=== PATIENT | male | born 1935 | race Caucasian/White ===

== ENCOUNTER 2019-01-04 11:05 | Inpatient (IN) | payer OTHER ==
[2019-01-04 14:08] LABS: BASO % 1.2 % (0-2.0); EOS % 0.5 % (0-4.5); HEMATOCRIT 33.4 % (35.4-49); HEMOGLOBIN 11.5 GM/dL (11.7-16.9); LYMPH % 21.7 % (8-40); MCHC 34.3 g/dl (32.0-35.9); MEAN CELL VOLUME 99.1 fl (80-96); MEAN PLT VOLUME 7.2 fl (7.5-11.1); NEUT % 67.6 % (42.8-82.8); PLATELET COUNT 414 K/MM3 (134-434); RBC 3.37 M/mm3 (4.00-5.60); RDW 15.7 % (11.9-15.9); WHITE BLOOD COUNT 5.7 K/mm3 (4.0-10.0)
[2019-01-04 14:28] LABS: INR 1.26 (0.83-1.09); PROTHROMBIN TIME (PATIENT) 14.9 SEC (9.7-13.0)
--- NOTE | 2019-01-04 14:29 | PDOC ---
History of Present Illness <Henna Hankins - Last Filed: 01/04/19 15:37> - History of Present Illness Initial Comments: 01/04/19 14:55 The patient is an 83-year-old male from [facility], with a past medical history of pAF, ND with unknown stent placement, who was sent to the ED by Dr. Edwards for concern for new onset CHF. The patient states that he woke up this morning with shortness of breath and chest tightness. He was noted to be hypotensive at the CT. Patient has gained 17 lbs over the last 3 weeks. He has been sleeping on 3 pillows. Pt has no hx CHF, is not on a diuretic. Pt was admitted to [facility] 5 weeks ago after a fall at home and decline in ADLs after the of his . The patient denies fever, chills, nausea, vomiting, diarrhea, or abdominal pain. Denies chest pain or palpitations. Denies any changes in urination. Allergies: NKA Social History: None reported. Surgical History: None reported. PCP: Dr. Edwards Technology Architect: Dr. Thompson <Trista Grayson - Last Filed: 01/04/19 17:25> - General Chief Complaint: Shortness of Breath Stated Complaint: DIFFICULTY BREATHING Time Seen by Provider: 01/04/19 12:17 Past History <Henna Hankins - Last Filed: 01/04/19 15:37> - Past Medical History COPD: No Dementia: Yes - Suicide/Smoking/Psychosocial Hx Smoking History: Unknown if ever smoked Have you smoked in the past 12 months: No Information on smoking cessation initiated: No Hx Alcohol Use: No Drug/Substance Use Hx: No <Trista Grayson - Last Filed: 01/04/19 17:25> - Past Medical History Allergies/Adverse Reactions: Allergies Allergy/AdvReac Type Severity Reaction Status Date / Time No Known Allergies Allergy Verified 01/04/19 11:30 Home Medications: Ambulatory Orders Acetaminophen 650 mg PO ASDIR 01/04/19 Aspirin 81 mg PO DAILY 01/04/19 Cyanocobalamin (Vitamin B-12) [Vitamin B-12] 1,000 mcg PO DAILY 01/04/19 Magnesium Hydroxide [Milk of Magnesia] 400 mg PO ASDIR 01/04/19 Vitamin D3 50,000 unit PO WEEKLY 01/04/19 Review of Systems - Review of Systems Comments:: 01/04/19 14:57 GENERAL/CONSTITUTIONAL: No fever or chills. No weakness. HEAD, EYES, EARS, NOSE AND THROAT: No change in vision. No ear pain or discharge. No sore throat. GASTROINTESTINAL: No nausea, vomiting, diarrhea or constipation. GENITOURINARY: No dysuria, frequency, or change in urination. CARDIOVASCULAR: (+)Chest tightness, shortness of breath. RESPIRATORY: No cough, wheezing, or hemoptysis. MUSCULOSKELETAL: No joint or muscle swelling or pain. No neck or back pain. SKIN: No rash NEUROLOGIC: No headache, vertigo, loss of consciousness, or change in strength/ sensation. ENDOCRINE: No increased thirst. No abnormal weight change. HEMATOLOGIC/LYMPHATIC: No anemia, easy bleeding, or history of blood clots. ALLERGIC/IMMUNOLOGIC: No hives or skin allergy. <Trista Grayson - Last Filed: 01/04/19 17:25> *Physical Exam - Vital Signs Last Vital Signs Temp Pulse Resp BP Pulse Ox 97.4 F L 115 H 20 103/66 96 01/04/19 11:30 01/04/19 11:30 01/04/19 11:30 01/04/19 11:30 01/04/19 11:30 <Henna Hanknis - Last Filed: 01/04/19 15:37> - Vital Signs Last Vital Signs Temp Pulse Resp BP Pulse Ox 97.4 F L 115 H 20 103/66 96 01/04/19 11:30 01/04/19 11:30 01/04/19 11:30 01/04/19 11:30 01/04/19 11:30 - Physical Exam Comments: 01/04/19 14:57 GENERAL: Awake, alert, and fully oriented, in no acute distress EYES: PERRLA, EOMI, sclera anicteric, conjunctiva clear ENT: Moist mucosa LUNGS: diminshed BS at the bases b/l with rales, no crackles or wheezing HEART: IRregularly irreg, rate 110, normal S1 and S2, no murmurs, rubs or gallops ABDOMEN: Soft, nontender, normoactive bowel sounds. No guarding, no rebound. No masses EXTREMITIES: Normal range of motion, 2+ pitting edema symmetric b/l to the knees . No cords, erythema, or tenderness BACK: No midline spinal tenderness in cervical/thoracic/lumbar region NEUROLOGICAL: Normal speech, cranial nerves intact, equal strength and sensation b/l SKIN: Warm, Dry, normal turgor, no rashes or lesions noted. <Trista Grayson - Last Filed: 01/04/19 17:25> Moderate Sedation - Procedure Monitoring Vital Signs: Procedure Monitoring Vital Signs Temperature 97.4 F L 01/04/19 11:30 Pulse Rate 115 H 01/04/19 11:30 Respiratory Rate 20 01/04/19 11:30 Blood Pressure 103/66 01/04/19 11:30 O2 Sat by Pulse Oximetry (%) 96 01/04/19 11:30 <Henna Hankins - Last Filed: 01/04/19 15:37> - Procedure Monitoring Vital Signs: Procedure Monitoring Vital Signs Temperature 97.4 F L 01/04/19 11:30 Pulse Rate 115 H 01/04/19 11:30 Respiratory Rate 01/04/19 11:30 Blood Pressure 103/66 01/04/19 11:30 O2 Sat by Pulse Oximetry (%) 96 01/04/19 11:30 <NilespeterTrista - Last Filed: 01/04/19 17:25> Heart Score/ECG Review #1 01/04/19 15:20 Twelve-lead EKG was performed and reviewed by me. Atrial fibrillation with rapid ventricular response, rate 137. Normal axis. No ST elevations. T wave inversions in leads V4 to V6. No previous EKGs to compare. <Trista Grayson - Last Filed: 01/04/19 17:25> ED Treatment Course - LABORATORY CBC & Chemistry Diagram: 01/04/19 13:46 01/04/19 13:36 - ADDITIONAL ORDERS Additional order review: Laboratory Results 01/04/19 01/04/19 01/04/19 13:46 13:46 13:36 PT with INR 14.90 H INR 1.26 H PTT (Actin FS) 24.6 L Sodium 139 Potassium 4.7 Chloride 105 Carbon Dioxide 25 Anion Gap 9 BUN 20 H Creatinine 0.8 Creat Clearance w eGFR > 60 Random Glucose 110 H Calcium 8.9 Magnesium 2.2 Total Bilirubin 0.7 AST 18 ALT 14 Alkaline Phosphatase 78 Troponin I 0.02 B-Natriuretic Peptide 59545.9 H Total Protein 6.3 L Albumin 2.9 L TSH 0.70 01/04/19 13:46 RBC 3.37 L MCV 99.1 H MCHC 34.3 RDW 15.7 MPV 7.2 L Neutrophils % 67.6 Lymphocytes % 21.7 Monocytes % 9.0 Eosinophils % 0.5 Basophils % 1.2 <Henna Hankins - Last Filed: 01/04/19 15:37> - LABORATORY CBC & Chemistry Diagram: 01/04/19 13:46 01/04/19 13:36 - ADDITIONAL ORDERS Additional order review: Laboratory Results 01/04/19 13:46 PT with INR 14.90 H INR 1.26 H 01/04/19 13:46 RBC 3.37 L MCV 99.1 H MCHC 34.3 RDW 15.7 MPV 7.2 L Neutrophils % 67.6 Lymphocytes % 21.7 Monocytes % 9.0 Eosinophils % 0.5 Basophils % 1.2 - RADIOLOGY Radiology Studies Ordered: Category Date Time Status CHEST X-RAY PORTABLE* [RAD] Stat Radiology 01/04/19 13:36 Taken <Trista Grayson - Last Filed: 01/04/19 17:25> Medical Decision Making - Medical Decision Making 01/04/19 13:51 Dr. Thompson was paged and notified via phone service. Second page placed at 2: 36. <Henna Hankins - Last Filed: 01/04/19 15:37> - Medical Decision Making 01/04/19 15:21 83yo M hx MMP including pAF presents to the ED with SOB, 3 pillow orthopnea, LE edema, and 17lb weight gain over 3 weeks consistent with new onset CHF. Exam with bibasilar rales, LE edema. Bedside sono with B lines, CXR with pulm vasc congestion. BNP 16K, trop neg. EKG with afib with RVR, no LELAND. BP relatively low , sbp 100s systolic. WIll give low dose diuresis with lasix 20mg IV. Dr. Thompson from cardiology has been alerted by Dr. Edwards for evaluation. Case discussed with Dr. Anders, pt accepted for admission. Case discussed in detail with admitting physician including history, physical exam and ancillary studies. Admitting physician has assumed care for the patient, will follow all pending diagnostics and will complete the evaluation and treatment. <Trista Grayson - Last Filed: 01/04/19 17:25> *DC/Admit/Observation/Transfer <Henna Hankins - Last Filed: 01/04/19 15:37> - Discharge Dispostion Decision to Admit order: Yes - Attestations Physician Attestion: 01/04/19 15:23 I, Dr. Trista Grayson MD, attest that this document has been prepared under my direction and personally reviewed by me in its entirety. I further attest, that it accurately reflects all work, treatment, procedures and medical decision -making performed by me. <Trista Grayson - Last Filed: 01/04/19 17:25> Diagnosis at time of Disposition: New onset of congestive heart failure, Orthopnea, Leg edema - Discharge Dispostion Condition at time of disposition: Stable
[2019-01-04 14:31] LABS: ACTIVATED PTT 24.6 SECONDS (25.2-36.5)
[2019-01-04 14:32] LABS: MAGNESIUM 2.2 mg/dL (1.8-2.4)
[2019-01-04 14:32] LABS: ALBUMIN 2.9 g/dl (3.4-5.0); ALK PHOS 78 U/L (45-117); ANION GAP 9 MMOL/L (8-16); BILIRUBIN,TOTAL 0.7 mg/dL (0.2-1); BLOOD UREA NITROGEN 20 mg/dL (7-18); CALCIUM 8.9 mg/dL (8.5-10.1); CHLORIDE 105 mmol/L (98-107); CO2 25 mmol/L (21-32); CREATININE 0.8 mg/dL (0.55-1.3); GLUCOSE,RANDOM 110 mg/dL (74-106); N-TERMINAL BNP 16382.9 pg/ml (5-450); POTASSIUM 4.7 mmol/L (3.5-5.1); SGOT/AST 18 U/L (15-37); SGPT/ALT 14 U/L (13-61); SODIUM 139 mmol/L (136-145); TOT PROT 6.3 g/dl (6.4-8.2)
--- NOTE | 2019-01-04 15:30 | EKG ---
Test Reason : Blood Pressure : / mmHG Vent. Rate : 137 BPM Atrial Rate : 089 BPM P-R Int : 000 ms QRS Dur : 072 ms QT Int : 326 ms P-R-T Axes : 000 044 061 degrees QTc Int : 492 ms ATRIAL FIBRILLATION WITH RAPID VENTRICULAR RESPONSE LOW VOLTAGE QRS NONSPECIFIC T WAVE ABNORMALITY ABNORMAL ECG NO PREVIOUS ECGS AVAILABLE Confirmed by POPEYE CRYSTAL MD ([id number]) on 01/04/2019 3:30:22 PM Referred By: Confirmed By:POPEYE CRYSTAL MD
[2019-01-04] MEDS ORDERED: FUROSEMIDE 40 MG/4 ML INJECTABLE VIAL IVPUSH ONE (15:39)
[2019-01-04] MEDS ORDERED: FUROSEMIDE 40 MG/4 ML INJECTABLE VIAL ONE (16:00)
--- NOTE | 2019-01-04 16:32 | HP ---
Admitting History and Physical - Admission History of Present Illness: The patient is an 83-year-old male from [facility], with a past medical history of pAF, DE with unknown stent placement, who was sent to the ED by Dr. Edwards for concern for new onset CHF. The patient states that he woke up this morning with shortness of breath and chest tightness. He was noted to be hypotensive at the CT. Patient has gained 17 lbs over the last 3 weeks. He has been sleeping on 3 pillows. Pt has no hx CHF, is not on a diuretic. Pt was admitted to [facility] 5 weeks ago after a fall at home and decline in ADLs after the of his . The patient denies fever, chills, nausea, vomiting, diarrhea, or abdominal pain. Denies chest pain or palpitations. Denies any changes in urination. History Source: Patient, Medical Record Limitations to Obtaining History: Poor Historian - Past Medical History Cardiovascular: Yes: CAD, CHF - Smoking History Smoking history: Unknown if ever smoked Have you smoked in the past 12 months: No - Alcohol/Substance Use Hx Alcohol Use: No Home Medications - Allergies Allergies/Adverse Reactions: Allergies Allergy/AdvReac Type Severity Reaction Status Date / Time No Known Allergies Allergy Verified 01/04/19 11:30 - Home Medications Home Medications: Ambulatory Orders Acetaminophen 650 mg PO ASDIR 01/04/19 Aspirin 81 mg PO DAILY 01/04/19 Cyanocobalamin (Vitamin B-12) [Vitamin B-12] 1,000 mcg PO DAILY 01/04/19 Magnesium Hydroxide [Milk of Magnesia] 400 mg PO ASDIR 01/04/19 Vitamin D3 50,000 unit PO WEEKLY 01/04/19 Acetaminophen [Tylenol .Regular Strength -] 650 mg PO Q6H PRN tablet 01/16/19 Aspirin Coated [Ecotrin -] 81 mg PO DAILY tablet.ec 01/16/19 Digoxin [Lanoxin -] 0.125 mg PO DAILY 30 Days #30 tablet 01/16/19 Folic Acid - 1 mg PO DAILY 30 Days #30 tablet 01/16/19 Furosemide [Lasix -] 40 mg PO DAILY 30 Days #30 tablet 01/16/19 Memantine HCl [Namenda -] 5 mg PO BID 30 Days #120 tab 01/16/19 Metoprolol Succinate [Toprol XL -] 100 mg PO BID 30 Days #60 tab.sr.24h Multivitamins [Multivit ([facility] Formulary)] 1 tab PO DAILY 30 Days #30 tab Review of Systems Findings/Remarks: dementia - Review of Systems Constitutional: reports: No Symptoms Eyes: reports: No Symptoms HENT: reports: No Symptoms Neck: reports: No Symptoms Cardiovascular: reports: No Symptoms Neurological: reports: Confusion, Pre-Existing Deficit Psychiatric: reports: Hallucinations Physical Examination Vital Signs: Vital Signs Temperature 97.4 F L 01/04/19 11:30 Pulse Rate 140 H 01/04/19 16:10 Respiratory Rate 16 01/04/19 16:10 Blood Pressure 116/66 01/04/19 16:10 O2 Sat by Pulse Oximetry (%) 99 01/04/19 16:10 Constitutional: Yes: Anxious, Thin Eyes: Yes: Conjunctiva Clear, EOM Intact HENT: Yes: Atraumatic, Normocephalic Neck: Yes: Supple, Trachea Midline Cardiovascular: Yes: Tachycardia, Pulse Irregular Respiratory: Yes: CTA Bilaterally Gastrointestinal: Yes: Normal Bowel Sounds, Soft ...Rectal Exam: Yes: Deferred Renal/: Yes: WNL Breast(s): Yes: WNL Musculoskeletal: Yes: WNL, Muscle Weakness Extremities: Yes: Erythema. No: Calf Tenderness, Deformity Edema: No Peripheral Pulses WNL: Yes Integumentary: Yes: Erythema (lower extremeties), Laceration (LE) Neurological: Yes: WNL, Alert, Oriented, Pre-Existing Deficit ...Motor Strength: WNL Psychiatric: Yes: Alert, Agitated Labs: CBC, BMP 01/04/19 13:46 01/04/19 13:36 Problem List - Problems (1) New onset of congestive heart failure Code(s): I50.9 - HEART FAILURE, UNSPECIFIED (2) Atrial fibrillation with rapid ventricular response Code(s): I48.91 - UNSPECIFIED ATRIAL FIBRILLATION (3) Dementia Code(s): F03.90 - UNSPECIFIED DEMENTIA WITHOUT BEHAVIORAL DISTURBANCE (4) Unsteady gait Code(s): R26.81 - UNSTEADINESS ON FEET (5) Leg edema Code(s): R60.0 - LOCALIZED EDEMA (6) Orthopnea Code(s): R06.01 - ORTHOPNEA Assessment/Plan 83 y/o male with hx of PAF / CHF / CAD / admitted from [facility] residence with progressive inc of SOB. Found to be in HF, and hypotension. echo 12/2018: sev dec lvef, global hk, nl rv, lae, mild mr, mild tr, rvsp 30-40 #HFrEF per echo above IV lasix but treatment limited by low BP daily weights / labs telemetry Cardiology consult #PAF hx of recurrent falls --- risk of a/c outwieght benefits Low Bp limits medical management -- # CAD unkown hx
[2019-01-04] MEDS ORDERED: ACETAMINOPHEN 325 MG TABLET (FP) PO SCH (16:45)
--- NOTE | 2019-01-04 16:51 | CON.CARD ---
Cardiology Consult (text) - Consultation Consultation Note: cc: sob hpi: 83 m hx pafib, chf, cad (?details), here with sob. Past 2 weeks pt with le edema, montes, orthopnea. No cp palps dizzy loc pnd. Sent from [facility] for chf exacerbation. pmh: per hpi psh: loop recorder fam: nc social: no tob ros: per hpi; no nvd fever abd pain vision changes gib hematuria dysuria meds: Home Medications Medication Instructions Recorded Acetaminophen 650 mg PO ASDIR 01/04/19 Aspirin 81 mg PO DAILY 01/04/19 Cyanocobalamin (Vitamin B-12) 1,000 mcg PO DAILY 01/04/19 [Vitamin B-12] Magnesium Hydroxide [Milk of 400 mg PO ASDIR 01/04/19 Magnesia] Vitamin D3 50,000 unit PO WEEKLY 01/04/19 Vital Signs Period Temp Pulse Resp BP Sys/Campbell Pulse Ox Last 24 Hr 97.4 F 115-140 16-20 103-116/66-66 96-99 nad no jvd irreg, s1s2 no mrg scattered rhonchi, nl eff aaox3 1+ le edema bl, no c/c abd nt nd pos bs no jaundice diaphoresis pos dp pt no carotid bruits Laboratory Last Values WBC 5.7 K/mm3 (4.0-10.0) 01/04/19 13:46 RBC 3.37 M/mm3 (4.00-5.60) L 01/04/19 13:46 Hgb 11.5 GM/dL (11.7-16.9) L 01/04/19 13:46 Hct 33.4 % (35.4-49) L 01/04/19 13:46 MCV 99.1 fl (80-96) H 01/04/19 13:46 MCH 34.0 pg (25.7-33.7) H 01/04/19 13:46 MCHC 34.3 g/dl (32.0-35.9) 01/04/19 13:46 RDW 15.7 % (11.9-15.9) 01/04/19 13:46 Plt Count 414 K/MM3 (134-434) 01/04/19 13:46 MPV 7.2 fl (7.5-11.1) L 01/04/19 13:46 Absolute Neuts (auto) 3.9 K/mm3 (1.5-8.0) 01/04/19 13:46 Neutrophils % 67.6 % (42.8-82.8) 01/04/19 13:46 Lymphocytes % 21.7 % (8-40) 01/04/19 13:46 Monocytes % 9.0 % (3.8-10.2) 01/04/19 13:46 Eosinophils % 0.5 % (0-4.5) 01/04/19 13:46 Basophils % 1.2 % (0-2.0) 01/04/19 13:46 Nucleated RBC % 0 % (0-0) 01/04/19 13:46 PT with INR 14.90 SEC (9.7-13.0) H 01/04/19 13:46 INR 1.26 (0.83-1.09) H 01/04/19 13:46 PTT (Actin FS) 24.6 SECONDS (25.2-36.5) L 01/04/19 13:46 Sodium 139 mmol/L (136-145) 01/04/19 13:36 Potassium 4.7 mmol/L (3.5-5.1) 01/04/19 13:36 Chloride 105 mmol/L (98-107) 01/04/19 13:36 Carbon Dioxide 25 mmol/L (21-32) 01/04/19 13:36 Anion Gap 9 MMOL/L (8-16) 01/04/19 13:36 BUN 20 mg/dL (7-18) H 01/04/19 13:36 Creatinine 0.8 mg/dL (0.55-1.3) 01/04/19 13:36 Creat Clearance w eGFR > 60 (>60) 01/04/19 13:36 Random Glucose 110 mg/dL (74-106) H 01/04/19 13:36 Calcium 8.9 mg/dL (8.5-10.1) 01/04/19 13:36 Magnesium 2.2 mg/dL (1.8-2.4) 01/04/19 13:46 Total Bilirubin 0.7 mg/dL (0.2-1) 01/04/19 13:36 AST 18 U/L (15-37) 01/04/19 13:36 ALT 14 U/L (13-61) 01/04/19 13:36 Alkaline Phosphatase 78 U/L (45-117) 01/04/19 13:36 Troponin I 0.02 ng/ml (0.00-0.05) 01/04/19 13:36 B-Natriuretic Peptide 14660.9 pg/ml (5-450) H 01/04/19 13:36 Total Protein 6.3 g/dl (6.4-8.2) L 01/04/19 13:36 Albumin 2.9 g/dl (3.4-5.0) L 01/04/19 13:36 TSH 0.70 uIU/ml (0.358-3.74) 01/04/19 13:46 Blood Type A POSITIVE 01/04/19 13:46 Antibody Screen Negative 01/04/19 13:46 cxr: mild chf ecg: afib rvr, nonspec tw changes, no st changes a/p: 83 m hx pafib, chf, cad (?details), here with sob. sob, acute chf: -lvef unknown, echo ordered -clinically in chf, will continue with iv lasix, daily wts/bmp -no signs acs cad: -details unknown, no signs acs -check echo -finish karla -cont asa pafib: -pt reports that 10/2018 had 2 falls and syncope and admitted in [place] and had loop recorder placed. he then went to snf and recently wily. He is still unsteady on his feet, thus given his fall hx and continued poor ambulation, risk of ac>benefits at this time, cont asa. -RVR here, possibly 2/2 chf or possibly cause of chf. Will start toprol 25 bid , monitor on tele.
[2019-01-04 18:55] LABS: URINE APPEARANCE CLEAR; URINE BILIRUBIN NEGATIVE (<2.0 mg/dL); URINE COLOR YELLOW; URINE GLUCOSE (UA) NEGATIVE (NEGATIVE); URINE KETONE NEGATIVE (NEGATIVE); URINE LEUK ESTERASE NEGATIVE (NEGATIVE); URINE NITRITE NEGATIVE (NEGATIVE); URINE PROTEIN 1+ (NEGATIVE); URINE UROBILINOGEN NEGATIVE mg/dL (0.2-1.0)
[2019-01-04 18:57] LABS: EPI CELLS RARE /HPF (FEW); URINE MUCUS RARE
[2019-01-04] MEDS ORDERED: metoPROLOL SUCCINATE 25 MG TAB.SR.24H (FP) PO SCH (22:00)
[2019-01-05 08:13] LABS: BASO % 1.1 % (0-2.0); EOS % 0.4 % (0-4.5); HEMATOCRIT 32.4 % (35.4-49); HEMOGLOBIN 10.8 GM/dL (11.7-16.9); LYMPH % 19.2 % (8-40); MCH 33.3 pg (25.7-33.7); MCHC 33.3 g/dl (32.0-35.9); MEAN PLT VOLUME 7.4 fl (7.5-11.1); MONO % 8.4 % (3.8-10.2); NEUT % 70.9 % (42.8-82.8); PLATELET COUNT 423 K/MM3 (134-434); RBC 3.24 M/mm3 (4.00-5.60); RDW 15.7 % (11.9-15.9); WHITE BLOOD COUNT 5.8 K/mm3 (4.0-10.0)
[2019-01-05 08:50] LABS: ANION GAP 10 MMOL/L (8-16); BLOOD UREA NITROGEN 24 mg/dL (7-18); CALCIUM 8.7 mg/dL (8.5-10.1); CHLORIDE 107 mmol/L (98-107); CHOLESTEROL 171 mg/dL (50-200); CO2 24 mmol/L (21-32); GLUCOSE,RANDOM 131 mg/dL (74-106); HDL CHOLESTEROL 39 mg/dL (40-60); MAGNESIUM 2.3 mg/dL (1.8-2.4); POTASSIUM 5.1 mmol/L (3.5-5.1); SODIUM 140 mmol/L (136-145); TRIGLYCERIDES 83 mg/dL (0-150)
[2019-01-05] MEDS ORDERED: PNEUMOC 13-VAL CONJ-DIP CRM/PF 0.5 ML DISP.SYRIN IM ONE (09:00)
[2019-01-05] MEDS: ASPIRIN COATED 81 MG TABLET.EC PO SCH (09:17)
[2019-01-05] MEDS ORDERED: METOPROLOL TARTRATE 5 MG/5 ML VIAL IVPUSH PRN (09:24)
[2019-01-05] MEDS: FUROSEMIDE 40 MG/4 ML INJECTABLE VIAL IVPUSH SCH (10:00)
--- NOTE | 2019-01-05 11:22 | PN ---
Progress Note (short form) - Note Progress Note: s: no cp palps dizzy; sob improving o: Vital Signs Period Temp Pulse Resp BP Sys/Campbell Pulse Ox Last 24 Hr 97.4 F-98.1 F 115-144 16-24 103-116/66-79 95-99 nad no jvd irreg, s1s2 no mrg scattered rhonchi, nl eff aaox3 1+ le edema bl, no c/c abd nt nd pos bs no jaundice diaphoresis Current Medications Generic Name Dose Route Start Last Admin Trade Name Freq PRN Reason Stop Dose Admin Acetaminophen 650 mg 01/04/19 16:45 Tylenol - PO ASDIR MARRY Aspirin 81 mg 01/05/19 10:00 01/05/19 09:17 Ecotrin - PO 81 mg DAILY MARRY Administration Furosemide 40 mg 01/05/19 10:00 Lasix Injection - IVPUSH DAILY MARRY Metoprolol Succinate 50 mg 01/05/19 06:45 01/05/19 06:49 Toprol Xl - PO 50 mg BID MARRY Administration Metoprolol Tartrate 5 mg 01/05/19 09:24 Lopressor Injection - IVPUSH Q4H PRN TACHYCARDIA CBC, BMP 01/05/19 06:30 01/05/19 06:00 cxr: mild chf ecg: afib rvr, nonspec tw changes, no st changes tele: afib, rvr 120s a/p: 83 m hx pafib, chf, cad (?details), here with sob. sob, acute chf: -lvef unknown, echo ordered -clinically in chf, will continue with iv lasix, daily wts/bmp -no signs acs cad: -details unknown, no signs acs -check echo -finish karla -cont asa pafib: -pt reports that 10/2018 had 2 falls and syncope and admitted in [place] and had loop recorder placed. he then went to snf and recently wily. He is still unsteady on his feet, thus given his fall hx and continued poor ambulation, risk of ac>benefits at this time, cont asa. -RVR here, possibly 2/2 chf or possibly cause of chf. Increased toprol today, monitor on tele.
--- NOTE | 2019-01-05 12:00 | PN ---
Progress Note (short form) - Note Progress Note: 83 y/o male found lying in bed. States that he feels better today. Reports SOB improving. Denies pain. Vital Signs Period Temp Pulse Resp BP Sys/Campbell Pulse Ox Last 24 Hr 98.0 F-98.1 F 133-144 16-24 105-116/66-79 95-99 CBC, BMP 01/05/19 06:30 01/05/19 06:00 HEENT- NL Neck- Supple Lungs- Scattered Rhonchi Heart- S1/S2 Abd- Soft, NT Ext-1 + pitting edema Active Medications Acetaminophen (Tylenol -) 650 mg PO ASDIR MARRY Aspirin (Ecotrin -) 81 mg PO DAILY [facility] Last Admin: 01/05/19 09:17 Dose: 81 mg Furosemide (Lasix Injection -) 40 mg IVPUSH DAILY [facility] Metoprolol Succinate (Toprol Xl -) 50 mg PO BID [facility] Last Admin: 01/05/19 06:49 Dose: 50 mg Metoprolol Tartrate (Lopressor Injection -) 5 mg IVPUSH Q4H PRN PRN Reason: TACHYCARDIA #CHF Cont IV Lasix Pedal edema/ SOB improving Cont BB for rate control Cardio appreciated
--- NOTE | 2019-01-05 14:54 | ECHO ---
Name: ALLY BIRMINGHAM Exam:Adult Echocardiogram Study Date: 01/05/2019 09:40 AM Age: 83 yrs Reason For Study: CHF Height: 69 in Weight: 144 lb BSA: 1.8 m2 MMode/2D Measurements & Calculations IVSd: 0.87 cm Ao root diam: 3.2 cm LVIDd: 5.5 cm LA dimension: 4.2 cm LVIDs: 4.5 cm LVPWd: 1.0 cm LVPWs: 0.99 cm EDV(Teich): 147.5 ml ESV(Teich): 90.4 ml LVOT diam: 1.9 cm Doppler Measurements & Calculations MV E max adolph: 69.6 cm/sec Ao V2 max: 73.4 cm/sec MV A max adolph: 63.2 cm/sec Ao max P.2 mmHg MV E/A: 1.1 MV dec time: 0.16 sec ALDA(V,D): 1.6 cm2 LV V1 max P.67 mmHg MR max adolph: 386.4 cm/sec LV V1 max: 40.7 cm/sec MR max P.8 mmHg TR max adolph: 290.7 cm/sec Med Peak E' Adolph: 5.4 cm/sec TR max P.7 mmHg Med E/e': 13.0 RVSP(TR): 44.7 mmHg Lat Peak E' Adolph: 5.9 cm/sec Lat E/e': 11.8 RAP systole: 10.0 mmHg Procedure A complete two-dimensional transthoracic echocardiogram was performed (2D, M-mode, Doppler and color flow Doppler). Left Ventricle The left ventricle is normal in size. Ejection Fraction = 25-30%. Left ventricular systolic function is severely reduced. There is severe global hypokinesis of the left ventricle. Right Ventricle The right ventricle is normal in size and function. Atria The left atrium is mildly dilated. Right atrial size is normal. Mitral Valve There is mild mitral regurgitation. Tricuspid Valve There is mild tricuspid regurgitation. Right ventricular systolic pressure is elevated at 30-40mmHg. Aortic Valve No hemodynamically significant valvular aortic stenosis. No aortic regurgitation is present. Pulmonic Valve There is no pulmonic valvular regurgitation. Great Vessels The aortic root is normal size. Pericardium/Pleura There is no pericardial effusion. Interpretation Summary Left ventricular systolic function is severely reduced. There is severe global hypokinesis of the left ventricle. The left ventricle is normal in size. The right ventricle is normal in size and function. The left atrium is mildly dilated. There is mild mitral regurgitation. There is mild tricuspid regurgitation. Right ventricular systolic pressure is elevated at 30-40mmHg. MD Senthil Rodrigues 01/05/2019 02:54 PM
--- NOTE | 2019-01-05 16:42 | EKG ---
Test Reason : Blood Pressure : / mmHG Vent. Rate : 118 BPM Atrial Rate : 133 BPM P-R Int : 000 ms QRS Dur : 072 ms QT Int : 338 ms P-R-T Axes : 000 -05 -58 degrees QTc Int : 473 ms ATRIAL FIBRILLATION WITH RAPID VENTRICULAR RESPONSE WITH PREMATURE VENTRICULAR OR ABERRANTLY CONDUCTED COMPLEXES LOW VOLTAGE QRS T WAVE ABNORMALITY, CONSIDER ANTERIOR ISCHEMIA ABNORMAL ECG WHEN COMPARED WITH ECG OF 04-JAN-2019 11:39, T WAVE INVERSION NOW EVIDENT IN ANTERIOR LEADS Confirmed by KURT ADAM MD ([id number]) on 01/05/2019 4:42:30 PM Referred By: Confirmed By:KURT ADAM MD
[2019-01-06 06:29] LABS: BASO % 0.5 % (0-2.0); HEMATOCRIT 35.1 % (35.4-49); HEMOGLOBIN 11.3 GM/dL (11.7-16.9); LYMPH % 12.5 % (8-40); MCH 33.1 pg (25.7-33.7); MCHC 32.4 g/dl (32.0-35.9); MEAN CELL VOLUME 102.1 fl (80-96); MEAN PLT VOLUME 7.4 fl (7.5-11.1); MONO % 10.7 % (3.8-10.2); NEUT % 76.3 % (42.8-82.8); PLATELET COUNT 399 K/MM3 (134-434); RBC 3.43 M/mm3 (4.00-5.60); RDW 15.8 % (11.9-15.9); WHITE BLOOD COUNT 6.9 K/mm3 (4.0-10.0)
[2019-01-06 07:53] LABS: ANION GAP 12 MMOL/L (8-16); BLOOD UREA NITROGEN 31 mg/dL (7-18); CALCIUM 9.1 mg/dL (8.5-10.1); CHLORIDE 108 mmol/L (98-107); CO2 20 mmol/L (21-32); CREATININE 1.2 mg/dL (0.55-1.3); GLUCOSE,RANDOM 136 mg/dL (74-106); POTASSIUM 4.8 mmol/L (3.5-5.1); SODIUM 140 mmol/L (136-145)
[2019-01-06] MEDS: FUROSEMIDE 40 MG/4 ML INJECTABLE VIAL IVPUSH SCH (09:28)
[2019-01-06] MEDS: ASPIRIN COATED 81 MG TABLET.EC PO SCH (09:28)
--- NOTE | 2019-01-06 11:03 | PN ---
Progress Note (short form) - Note Progress Note: 83 y/o male found lying in bed. Reports feeling better. O2 in place via nasal cannula. Vital Signs Period Temp Pulse Resp BP Sys/Campbell Pulse Ox Last 24 Hr 97.0 F-97.6 F 120-129 16-18 94-108/60-71 96 CBC, BMP 01/06/19 05:30 01/06/19 06:20 HEENT- Normocephalic Neck- supple Lungs- CTAB Heart- S1/S2 Abd- soft, nt Ext- No LE edema Active Medications Acetaminophen (Tylenol -) 650 mg PO ASDIR MARRY Aspirin (Ecotrin -) 81 mg PO DAILY [facility] Last Admin: 01/06/19 09:28 Dose: 81 mg Furosemide (Lasix Injection -) 40 mg IVPUSH DAILY [facility] Last Admin: 01/06/19 09:28 Dose: 40 mg Metoprolol Succinate (Toprol Xl -) 50 mg PO BID [facility] Last Admin: 01/06/19 09:28 Dose: 50 mg Metoprolol Tartrate (Lopressor Injection -) 5 mg IVPUSH Q4H PRN PRN Reason: TACHYCARDIA #CHF Cont IV Lasix Pedal edema resolved SOB improving Cont BB for rate control Chest xray improving #CAD Cont ASA
[2019-01-06] MEDS ORDERED: ACETAMINOPHEN 325 MG TABLET (FP) PO PRN (11:08)
--- NOTE | 2019-01-06 11:25 | PN ---
Progress Note (short form) - Note Progress Note: s: no cp palps dizzy; sob improving o: Vital Signs Period Temp Pulse Resp BP Sys/Campbell Pulse Ox Last 24 Hr 97.0 F-97.6 F 120-129 16-18 94-108/60-71 96 nad no jvd irreg, s1s2 no mrg scattered rhonchi, nl eff aaox3 trace le edema bl, no c/c abd nt nd pos bs no jaundice diaphoresis Current Medications Generic Name Dose Route Start Last Admin Trade Name Freq PRN Reason Stop Dose Admin Acetaminophen 650 mg 01/06/19 11:08 Tylenol - PO Q6H PRN PAIN LEVEL 1-5 Aspirin 81 mg 01/05/19 10:00 01/06/19 09:28 Ecotrin - PO 81 mg DAILY MARRY Administration Furosemide 40 mg 01/05/19 10:00 01/06/19 09:28 Lasix Injection - IVPUSH 40 mg DAILY MARRY Administration Metoprolol Succinate 50 mg 01/05/19 06:45 01/06/19 09:28 Toprol Xl - PO 50 mg BID MARRY Administration Metoprolol Tartrate 5 mg 01/05/19 09:24 Lopressor Injection - IVPUSH Q4H PRN TACHYCARDIA CBC, BMP 01/06/19 05:30 01/06/19 06:20 cxr: mild chf ecg: afib rvr, nonspec tw changes, no st changes tele: afib, rvr 120s echo 12/2018: sev dec lvef, global hk, nl rv, lae, mild mr, mild tr, rvsp 30-40 a/p: 83 m hx pafib, chf, cad (?details), here with sob. sob, acute systolic chf: -echo here with severely reduced lvef -volume improving, cont iv lasix, daily wts/bmp -no signs acs cad: -details unknown, no signs acs -cont asa pafib: -pt reports that 10/2018 had 2 falls and syncope and admitted in [place] and had loop recorder placed. he then went to sn[facility] and recently [facility]. He is still unsteady on his feet, thus given his fall hx and continued poor ambulation, risk of ac>benefits at this time, cont asa. -RVR here, possibly 2/2 chf or possibly cause of chf. Cont toprol, monitor on tele as chf resolves.
[2019-01-06] MEDS ORDERED: HALOPERIDOL LACTATE 5 MG/ML IM ONE (21:00)
[2019-01-07 07:09] LABS: BASO % 0.3 % (0-2.0); HEMATOCRIT 32.4 % (35.4-49); HEMOGLOBIN 10.9 GM/dL (11.7-16.9); LYMPH % 9.3 % (8-40); MCH 33.5 pg (25.7-33.7); MCHC 33.8 g/dl (32.0-35.9); MEAN CELL VOLUME 99.2 fl (80-96); MEAN PLT VOLUME 7.4 fl (7.5-11.1); MONO % 8.8 % (3.8-10.2); NEUT % 81.6 % (42.8-82.8); PLATELET COUNT 343 K/MM3 (134-434); RBC 3.26 M/mm3 (4.00-5.60); WHITE BLOOD COUNT 7.8 K/mm3 (4.0-10.0)
[2019-01-07 07:20] LABS: ANION GAP 13 MMOL/L (8-16); BLOOD UREA NITROGEN 37 mg/dL (7-18); CALCIUM 9.1 mg/dL (8.5-10.1); CHLORIDE 105 mmol/L (98-107); CO2 22 mmol/L (21-32); CREATININE 1.3 mg/dL (0.55-1.3); GLUCOSE,RANDOM 105 mg/dL (74-106); POTASSIUM 4.5 mmol/L (3.5-5.1); SODIUM 139 mmol/L (136-145)
[2019-01-07] MEDS: FUROSEMIDE 40 MG/4 ML INJECTABLE VIAL IVPUSH SCH (09:16)
[2019-01-07] MEDS: ASPIRIN COATED 81 MG TABLET.EC PO SCH (09:16)
--- NOTE | 2019-01-07 10:06 | PN ---
Progress Note (short form) - Note Progress Note: s: no cp palps dizzy; sob improving o: Vital Signs Period Temp Pulse Resp BP Sys/Campbell Pulse Ox Last 24 Hr 97.3 F-98.1 F 116-128 20-24 92-103/50-71 95 nad no jvd irreg, s1s2 no mrg scattered rhonchi, nl eff aaox3 trace le edema bl, no c/c abd nt nd pos bs no jaundice diaphoresis Current Medications Generic Name Dose Route Start Last Admin Trade Name Freq PRN Reason Stop Dose Admin Acetaminophen 650 mg 01/06/19 11:08 Tylenol - PO Q6H PRN PAIN LEVEL 1-5 Aspirin 81 mg 01/05/19 10:00 01/07/19 09:16 Ecotrin - PO 81 mg DAILY MARRY Administration Digoxin 0.125 mg 01/07/19 10:15 Lanoxin - PO DAILY MARRY Furosemide 40 mg 01/05/19 10:00 01/07/19 09:16 Lasix Injection - IVPUSH 01/07/19 12:00 40 mg DAILY MARRY Administration Furosemide 40 mg 01/07/19 16:00 Lasix Injection - IVPUSH 01/07/19 16:01 ONCE ONE Furosemide 40 mg 01/08/19 06:00 Lasix Injection - IVPUSH BID@0600,1400 MARRY Metoprolol Succinate 50 mg 01/05/19 06:45 01/07/19 09:16 Toprol Xl - PO 50 mg BID MARRY Administration Metoprolol Tartrate 5 mg 01/05/19 09:24 Lopressor Injection - IVPUSH Q4H PRN TACHYCARDIA CBC, BMP 01/07/19 05:30 01/07/19 05:30 cxr: mild chf ecg: afib rvr, nonspec tw changes, no st changes tele: afib, rvr 120s echo 12/2018: sev dec lvef, global hk, nl rv, lae, mild mr, mild tr, rvsp 30-40 a/p: 83 m hx pafib, chf, cad (?details), here with sob. sob, acute systolic chf: -echo here with severely reduced lvef -volume improving, cont iv lasix, daily wts/bmp. Will increase to lasix 40 iv bid from qd. -no silviano-i for now as bp low. cont bb. -no signs acs cad: -details unknown, no signs acs -cont asa pafib: -pt reports that 10/2018 had 2 falls and syncope and admitted in [place] and had loop recorder placed. he then went to snf and recently [facility]. He is still unsteady on his feet, thus given his fall hx and continued poor ambulation, risk of ac>benefits at this time, cont asa. -RVR here, possibly 2/2 chf or possibly cause of chf. Cont toprol. Will also add dig for rate control as bp too low for further bb. monitor on tele.
[2019-01-07] MEDS: DIGOXIN 0.125 MG TABLET (FP) PO SCH (10:56)
[2019-01-07] MEDS ORDERED: FUROSEMIDE 40 MG/4 ML INJECTABLE VIAL IVPUSH ONE (16:00)
--- NOTE | 2019-01-07 16:46 | PN ---
Progress Note (short form) - Note Progress Note: sitting in bed comfortable breathing "still a problem" but better Vital Signs Period Temp Pulse Resp BP Sys/Campbell Pulse Ox Last 24 Hr 97.3 F-98.1 F 120-137 20-24 92-103/50-68 95-100 neck supple heart S1/S2 lungs dull left base and rales at both basses abd soft non tender ext no edema / no calf tenderness multiple scab/ injuries in multiple stages of healing ro both lower extremities CBC, BMP 01/07/19 05:30 01/07/19 05:30 CXR: mild chf EKG: afib rvr, nonspec tw changes, no st changes tele: afib, rvr 120s ECHO: 12/2018: sev dec lvef, global hk, nl rv, lae, mild mr, mild tr, rvsp 30-40 Microbiology 01/04/19 18:40 Urine - Urine Clean Catch Urine Culture - Final Active Medications Acetaminophen (Tylenol -) 650 mg PO Q6H PRN PRN Reason: PAIN LEVEL 1-5 Aspirin (Ecotrin -) 81 mg PO DAILY [facility] Last Admin: 01/07/19 09:16 Dose: 81 mg Digoxin (Lanoxin -) 0.125 mg PO DAILY [facility] Last Admin: 01/07/19 10:56 Dose: 0.125 mg Furosemide (Lasix Injection -) 40 mg IVPUSH BID@0600,1400 [facility] Metoprolol Succinate (Toprol Xl -) 50 mg PO BID [facility] Last Admin: 01/07/19 09:16 Dose: 50 mg Metoprolol Tartrate (Lopressor Injection -) 5 mg IVPUSH Q4H PRN PRN Reason: TACHYCARD Assmt / plan 83 y/o male with hx of PAF / CHF / CAD / admitted from [address] [place] [address] with progressive inc of SOB. Found to be in HF, and hypotension. echo 12/2018: sev dec lvef, global hk, nl rv, lae, mild mr, mild tr, rvsp 30-40 #HFrEF per echo above improving with lasix but treatment limited by low BP daily weights / labs lasix increased to BID -- monitor bp #PAF hx of recurrent falls --- agree with cardio increased risk of A/C outweigh the benefits. continue ASA Low Bp limits medical management --agree with dig for rate control # CAD unkown hx
[2019-01-07] MEDS ORDERED: HALOPERIDOL LACTATE 5 MG/ML IM ONE ×2 (21:00→23:00)
[2019-01-08] MEDS ORDERED: HALOPERIDOL LACTATE 5 MG/ML IM ONE (02:15)
[2019-01-08] MEDS: FUROSEMIDE 40 MG/4 ML INJECTABLE VIAL IVPUSH SCH ×2 (06:26→14:00)
[2019-01-08 07:55] LABS: ANION GAP 11 MMOL/L (8-16); BLOOD UREA NITROGEN 39 mg/dL (7-18); CALCIUM 8.8 mg/dL (8.5-10.1); CHLORIDE 107 mmol/L (98-107); CO2 23 mmol/L (21-32); GLUCOSE,RANDOM 98 mg/dL (74-106); SODIUM 140 mmol/L (136-145)
[2019-01-08] MEDS: ASPIRIN COATED 81 MG TABLET.EC PO SCH (09:39)
[2019-01-08] MEDS: DIGOXIN 0.125 MG TABLET (FP) PO SCH (09:39)
--- NOTE | 2019-01-08 10:56 | PN ---
Progress Note (short form) - Note Progress Note: s: no cp palps dizzy; sob improving o: Vital Signs Period Temp Pulse Resp BP Sys/Campbell Pulse Ox Last 24 Hr 97 F-98 F 116-132 19-22 99-123/62-76 95-99 nad no jvd irreg, s1s2 no mrg scattered rhonchi, nl eff aaox3 trace le edema bl, no c/c abd nt nd pos bs no jaundice diaphoresis Current Medications Generic Name Dose Route Start Last Admin Trade Name Freq PRN Reason Stop Dose Admin Acetaminophen 650 mg 01/06/19 11:08 Tylenol - PO Q6H PRN PAIN LEVEL 1-5 Aspirin 81 mg 01/05/19 10:00 01/08/19 09:39 Ecotrin - PO 81 mg DAILY MARRY Administration Digoxin 0.125 mg 01/07/19 10:15 01/08/19 09:39 Lanoxin - PO 0.125 mg DAILY MARRY Administration Furosemide 40 mg 01/08/19 06:00 01/08/19 06:26 Lasix Injection - IVPUSH 40 mg BID@0600,1400 MARRY Administration Metoprolol Succinate 50 mg 01/05/19 06:45 01/08/19 09:39 Toprol Xl - PO 50 mg BID MARRY Administration Metoprolol Tartrate 5 mg 01/05/19 09:24 Lopressor Injection - IVPUSH Q4H PRN TACHYCARDIA CBC, BMP 01/07/19 05:30 01/08/19 06:00 cxr: mild chf ecg: afib rvr, nonspec tw changes, no st changes tele: afib, rate 110s echo 12/2018: sev dec lvef, global hk, nl rv, lae, mild mr, mild tr, rvsp 30-40 a/p: 83 m hx pafib, chf, cad (?details), here with sob. sob, acute systolic chf: -echo here with severely reduced lvef -volume/symptoms improving, cont iv lasix, daily wts/bmp. -no silviano-i for now as bp low. cont bb. -no signs acs cad: -details unknown, no signs acs -cont asa pafib: -pt reports that 10/2018 had 2 falls and syncope and admitted in [place] and had loop recorder placed. he then went to snf and recently half-way. He is still unsteady on his feet, thus given his fall hx and continued poor ambulation, risk of ac>benefits at this time, cont asa. -RVR here, possibly 2/2 chf or possibly cause of chf. Cont toprol. Also added dig for rate control as bp too low for further bb. monitor on tele.
--- NOTE | 2019-01-08 17:45 | PN ---
Progress Note (short form) - Note Progress Note: sitting in bed comfortable / confused / oriented X2 breathing "still a problem" but better Vital Signs Period Temp Pulse Resp BP Sys/Campbell Pulse Ox Last 24 Hr 97 F-98 F 116-128 19-22 100-123/62-80 95-99 neck supple heart S1/S2 lungs dull left base and rales at both basses / rhonchi abd soft non tender ext trace edema / no calf tenderness multiple scab/ injuries in multiple stages of healing to both lower extremities CBC, BMP 01/07/19 05:30 01/08/19 06:00 CBC, BMP 01/07/19 05:30 01/07/19 05:30 CXR: mild chf EKG: afib rvr, nonspec tw changes, no st changes tele: afib, rvr 120s ECHO: 12/2018: sev dec lvef, global hk, nl rv, lae, mild mr, mild tr, rvsp 30-40 Microbiology 01/04/19 18:40 Urine - Urine Clean Catch Urine Culture - Final Active Medications Acetaminophen (Tylenol -) 650 mg PO Q6H PRN PRN Reason: PAIN LEVEL 1-5 Aspirin (Ecotrin -) 81 mg PO DAILY [facility] Last Admin: 01/07/19 09:16 Dose: 81 mg Digoxin (Lanoxin -) 0.125 mg PO DAILY [facility] Last Admin: 01/07/19 10:56 Dose: 0.125 mg Furosemide (Lasix Injection -) 40 mg IVPUSH BID@0600,1400 [facility] Metoprolol Succinate (Toprol Xl -) 50 mg PO BID [facility] Last Admin: 01/07/19 09:16 Dose: 50 mg Metoprolol Tartrate (Lopressor Injection -) 5 mg IVPUSH Q4H PRN PRN Reason: TACHYCARD Assmt / plan 83 y/o male with hx of PAF / CHF / CAD / admitted from [address] [place] [address] with progressive inc of SOB. Found to be in HF, and hypotension. echo 12/2018: sev dec lvef, global hk, nl rv, lae, mild mr, mild tr, rvsp 30-40 #HFrEF per echo above improving with lasix but treatment limited by low BP daily weights / labs lasix increased to BID -- monitor bp #PAF hx of recurrent falls --- agree with cardio increased risk of A/C outweigh the benefits. continue ASA Low Bp limits medical management --agree with dig for rate control # CAD unkown hx # Dementia periods of agitation / sundowning haldol PRN
[2019-01-08] MEDS: HALOPERIDOL LACTATE 5 MG/ML IM PRN (21:42)
[2019-01-09] MEDS: FUROSEMIDE 40 MG/4 ML INJECTABLE VIAL IVPUSH SCH ×2 (06:02→13:08)
[2019-01-09] MEDS: ASPIRIN COATED 81 MG TABLET.EC PO SCH (09:06)
[2019-01-09] MEDS: MULTIVITAMINS (DAILY MVI) TABLET (FP) PO SCH (09:07)
[2019-01-09] MEDS: DIGOXIN 0.125 MG TABLET (FP) PO SCH (09:07)
[2019-01-09] MEDS: FOLIC ACID 1 MG TABLET (FP) PO SCH (09:07)
[2019-01-09] MEDS: THIAMINE HCL 100 MG TABLET (FP) PO SCH (09:07)
--- NOTE | 2019-01-09 09:24 | PN ---
Progress Note, Physician Chief Complaint: sob History of Present Illness: denies sob currently. denies cp. no leg swelling, palpitations - Current Medication List Current Medications: Active Medications Acetaminophen (Tylenol -) 650 mg PO Q6H PRN PRN Reason: PAIN LEVEL 1-5 Last Admin: 01/09/19 09:10 Dose: 650 mg Aspirin (Ecotrin -) 81 mg PO DAILY [facility] Last Admin: 01/09/19 09:06 Dose: 81 mg Digoxin (Lanoxin -) 0.125 mg PO DAILY [facility] Last Admin: 01/09/19 09:07 Dose: 0.125 mg Folic Acid (Folic Acid -) 1 mg PO DAILY [facility] Last Admin: 01/09/19 09:07 Dose: 1 mg Furosemide (Lasix Injection -) 40 mg IVPUSH BID@0600,1400 [facility] Last Admin: 01/09/19 06:02 Dose: 40 mg Haloperidol (Haldol Injection (Fast Acting) -) 3 mg IM Q4H PRN PRN Reason: AGITATION Last Admin: 01/08/19 21:42 Dose: 3 mg Metoprolol Succinate (Toprol Xl -) 50 mg PO BID [facility] Last Admin: 01/09/19 09:07 Dose: 50 mg Metoprolol Tartrate (Lopressor Injection -) 5 mg IVPUSH Q4H PRN PRN Reason: TACHYCARDIA Multivitamins/Minerals/Vitamin C (Tab-A-Vit -) 1 tab PO DAILY [facility] Last Admin: 01/09/19 09:07 Dose: 1 tab Thiamine HCl (Vitamin B1 -) 100 mg PO DAILY [facility] Last Admin: 01/09/19 09:07 Dose: 100 mg - Objective Vital Signs: Vital Signs Temperature 97.9 F 01/09/19 05:00 Pulse Rate 110 H 01/09/19 09:07 Respiratory Rate 18 01/09/19 05:00 Blood Pressure 106/69 01/09/19 05:00 O2 Sat by Pulse Oximetry (%) 98 01/08/19 21:00 Constitutional: Yes: No Distress, Calm Eyes: No: Sclera Icterus HENT: No: Nasal Congestion Cardiovascular: Yes: Pulse Irregular, S1, S2, Other (PMI non diplaced). No: JVD , Gallop, Murmur Respiratory: Yes: CTA Bilaterally (anteriorly (michelle vest on)). No: Accessory Muscle Use, Rales, Wheezes Gastrointestinal: Yes: Normal Bowel Sounds, Soft. No: Tenderness Musculoskeletal: Yes: Other (No kyphosis) Extremities: No: Cold Edema: No Integumentary: No: Jaundice Neurological: Yes: Alert. No: Oriented (thinks he lives in [place] [facility] [address] [facility] (resident of [facility])) Psychiatric: No: Agitated Labs: CBC, BMP 01/07/19 05:30 01/08/19 06:00 INR, PTT INR 1.26 (0.83-1.09) H 01/04/19 13:46 Assessment/Plan cxr 01/08: no change in "some congestive changes" ecg: afib rvr, nonspec tw changes, no st changes echo 12/2018: sev dec lvef, global hk, nl rv, lae, mild mr, mild tr, rvsp 30-40 tele: AF 110s-120s bpm. [place] x7b, 8b. WCT run 10b (? AF with aberrancy vs VT) a/p: 83 m hx pafib, chf, cad (?details), here with sob. sob, acute systolic chf: -echo here with severely reduced lvef, no priors to compare -BNP 16K (no priors) -receiving iv lasix 40 bid. -01/09: wt coming down slowly (6 lbs since admit). no JVD. bun trending up, creat stable. cxr unchanged (mild changes). continue same lasix today--if appears similarly euvolemic and bun/creat rising tomorrow, would transition to oral lasix. -soft BPs. prioritizing BB for syst chf and afib rate control. deferring ANIKET -d/w'd dr goodwin, who feels his dementia is likely significant with limited quality of life and agitation. d/w'd dr riley who knows pt from [address] [place] [address]--only recently met him, difficult to expound on extent of his dementia and/or reduced life expectancy as a result. the benefits of -if tele stable here (i.e. no prolonged VT), will defer final decision on primary prevention ICD for outpatient assessment and discussion with pt/son based on his functional status/mental status/qual of life and their preferences. d/w'd dr riley the plan as well. VTach: -runs of NSVT on tele, up to 8-10 beats -K > 4, Mag > 2 -cont BB as doing, HF optimization as doing cad: -past history details unknown, no signs acs here -cont asa -outpt cardio f/u pafib: -pt reports that 10/2018 had 2 falls and syncope and admitted in [place] and had loop recorder placed. he then went to snf and recently nursing home. He is still unsteady on his feet, thus given his fall hx and continued poor ambulation, risk of ac>benefits at this time, cont asa. -RVR here, possibly 2/2 chf or possibly cause of chf. Cont toprol. Also added dig for rate control, given soft BPs here -01/09: HR remains rapid. incr metoprolol 50 bid to 75 bid, watch BP trend -would consider stopping digoxin if HR well controlled once pt is diuresed, on max tolerated BB dose. -monitor dig levels (good thus far) dementia, agitation/sundowning here: -as above
[2019-01-09] MEDS ORDERED: metoPROLOL SUCCINATE 25 MG TAB.SR.24H (FP) PO ONE (10:45)
[2019-01-09 11:12] LABS: MAGNESIUM 2.2 mg/dL (1.8-2.4)
[2019-01-10] MEDS: FUROSEMIDE 40 MG/4 ML INJECTABLE VIAL IVPUSH SCH (06:55)
[2019-01-10 09:01] LABS: ANION GAP 9 MMOL/L (8-16); CALCIUM 8.3 mg/dL (8.5-10.1); CHLORIDE 105 mmol/L (98-107); CO2 29 mmol/L (21-32); CREATININE 0.7 mg/dL (0.55-1.3); GLUCOSE,RANDOM 98 mg/dL (74-106); MAGNESIUM 2.2 mg/dL (1.8-2.4); POTASSIUM 3.8 mmol/L (3.5-5.1); SODIUM 143 mmol/L (136-145)
--- NOTE | 2019-01-10 09:59 | PN ---
Progress Note (short form) - Note Progress Note: s: sob improving. no chest pain, palps dizziness, lightheadedness Current Medications Acetaminophen (Tylenol -) 650 mg PO Q6H PRN PRN Reason: PAIN LEVEL 1-5 Last Admin: 01/09/19 09:10 Dose: 650 mg Aspirin (Ecotrin -) 81 mg PO DAILY [facility] Last Admin: 01/09/19 09:06 Dose: 81 mg Digoxin (Lanoxin -) 0.125 mg PO DAILY [facility] Last Admin: 01/09/19 09:07 Dose: 0.125 mg Folic Acid (Folic Acid -) 1 mg PO DAILY [facility] Last Admin: 01/09/19 09:07 Dose: 1 mg Furosemide (Lasix Injection -) 40 mg IVPUSH BID@0600,1400 [facility] Last Admin: 01/10/19 06:55 Dose: 40 mg Haloperidol (Haldol Injection (Fast Acting) -) 3 mg IM Q4H PRN PRN Reason: AGITATION Last Admin: 01/08/19 21:42 Dose: 3 mg Metoprolol Succinate (Toprol Xl -) 75 mg PO BID [facility] Last Admin: 01/09/19 22:51 Dose: 75 mg Metoprolol Tartrate (Lopressor Injection -) 5 mg IVPUSH Q4H PRN PRN Reason: TACHYCARDIA Multivitamins/Minerals/Vitamin C (Tab-A-Vit -) 1 tab PO DAILY [facility] Last Admin: 01/09/19 09:07 Dose: 1 tab Thiamine HCl (Vitamin B1 -) 100 mg PO DAILY [facility] Last Admin: 01/09/19 09:07 Dose: 100 mg - Objective Vital Signs Period Temp Pulse Resp BP Sys/Campbell Pulse Ox Last 24 Hr 97.2 F-97.9 F 102-129 20-20 99-122/63-73 96 Constitutional: Yes: No Distress, Calm Eyes: No: Sclera Icterus HENT: No: Nasal Congestion Cardiovascular: Yes: Pulse Irregular, S1, S2, Other (PMI non diplaced). No: JVD , Gallop, Murmur Respiratory: Yes: CTA Bilaterally (anteriorly (michelle vest on)). No: Accessory Muscle Use, Rales, Wheezes Gastrointestinal: Yes: Normal Bowel Sounds, Soft. No: Tenderness Musculoskeletal: Yes: Other (No kyphosis) Extremities: No: Cold Edema: No Integumentary: No: Jaundice Neurological: Yes: Alert. No: Oriented (thinks he lives in [place] on [address] [place] [address] (resident of [facility])) Psychiatric: No: Agitated Assessment/Plan cxr 01/08: no change in "some congestive changes" ecg: afib rvr, nonspec tw changes, no st changes echo 12/2018: sev dec lvef, global hk, nl rv, lae, mild mr, mild tr, rvsp 30-40 tele: AF 100-110s bpm. [place] x 3b, 4b, bigeminy a/p: 83 m hx pafib, chf, cad (?details), here with sob. sob, acute systolic chf: -echo here with severely reduced lvef, no priors to compare -BNP 16K (no priors) -receiving iv lasix 40 bid. -01/09: wt coming down slowly (6 lbs since admit). no JVD. bun trending up, creat stable. cxr unchanged (mild changes). continue same lasix today--if appears similarly euvolemic and bun/creat rising tomorrow, would transition to oral lasix. -soft BPs. prioritizing BB for syst chf and afib rate control. deferring ANIKET -per Dr. Bolanos: d/w'd dr goodwin, who feels his dementia is likely significant with limited quality of life and agitation. d/w'd dr riley who knows pt from [address] [place] [address]--only recently met him, difficult to expound on extent of his dementia and/or reduced life expectancy as a result -if tele stable here (i.e. no prolonged VT), will defer final decision on primary prevention ICD for outpatient assessment and discussion with pt/son based on his functional status/mental status/qual of life and their preferences. d/w'd dr riley the plan as well. - 01/10 weight stable, BUN/Cr stable. appears euvolemic with shortness of breath improved. transition to PO lasix 40 mg daily VTach: -runs of NSVT on tele, up to 8-10 beats -K > 4, Mag > 2 -cont BB as doing, HF optimization as doing cad: -past history details unknown, no signs acs here -cont asa -outpt cardio f/u pafib: -pt reports that 10/2018 had 2 falls and syncope and admitted in [place] and had loop recorder placed. he then went to snf and recently skilled nursing. He is still unsteady on his feet, thus given his fall hx and continued poor ambulation, risk of ac>benefits at this time, cont asa. -RVR here, possibly 2/2 chf or possibly cause of chf. Cont toprol. Also added dig for rate control, given soft BPs here -01/09: HR remains rapid. incr metoprolol 50 bid to 75 bid, watch BP tr -01/10 HR improved with increased metoprolol, digoxin, continue -would consider stopping digoxin if HR well controlled once pt is diuresed, on max tolerated BB dose. -monitor dig levels (good thus far) dementia, agitation/sundowning here: -as above
[2019-01-10] MEDS: DIGOXIN 0.125 MG TABLET (FP) PO SCH (10:41)
[2019-01-10] MEDS: FOLIC ACID 1 MG TABLET (FP) PO SCH (10:41)
[2019-01-10] MEDS: ASPIRIN COATED 81 MG TABLET.EC PO SCH (10:41)
[2019-01-10] MEDS: MULTIVITAMINS (DAILY MVI) TABLET (FP) PO SCH (10:41)
[2019-01-10] MEDS: THIAMINE HCL 100 MG TABLET (FP) PO SCH (10:41)
[2019-01-10 11:54] LABS: BLOOD UREA NITROGEN 23 mg/dL (7-18)
--- NOTE | 2019-01-10 18:19 | PN ---
Progress Note (short form) - Note Progress Note: sitting in bed comfortable / confused / oriented X2 appreciated cardio input - case discussed with Dr Thompson Vital Signs Period Temp Pulse Resp BP Sys/Campbell Pulse Ox Last 24 Hr 97.2 F-98.0 F 100-129 20-20 101-122/63-75 96-96 neck supple heart S1/S2 lungs dull left base and rales at both basses / rhonchi abd soft non tender ext no edema / no calf tenderness multiple scab/ injuries in multiple stages of healing to both lower extremities CBC, BMP 01/07/19 05:30 01/07/19 05:30 CXR: mild chf EKG: afib rvr, nonspec tw changes, no st changes tele: afib, rvr 120s ECHO: 12/2018: sev dec lvef, global hk, nl rv, lae, mild mr, mild tr, rvsp 30-40 Microbiology 01/04/19 18:40 Urine - Urine Clean Catch Urine Culture - Final Active Medications Acetaminophen (Tylenol -) 650 mg PO Q6H PRN PRN Reason: PAIN LEVEL 1-5 Last Admin: 01/09/19 09:10 Dose: 650 mg Aspirin (Ecotrin -) 81 mg PO DAILY [facility] Last Admin: 01/10/19 10:41 Dose: 81 mg Digoxin (Lanoxin -) 0.125 mg PO DAILY [facility] Last Admin: 01/10/19 10:41 Dose: 0.125 mg Folic Acid (Folic Acid -) 1 mg PO DAILY [facility] Last Admin: 01/10/19 10:41 Dose: 1 mg Furosemide (Lasix -) 40 mg PO DAILY [facility] Haloperidol (Haldol Injection (Fast Acting) -) 3 mg IM Q4H PRN PRN Reason: AGITATION Last Admin: 01/08/19 21:42 Dose: 3 mg Metoprolol Succinate (Toprol Xl -) 75 mg PO BID [facility] Last Admin: 01/10/19 10:41 Dose: 75 mg Metoprolol Tartrate (Lopressor Injection -) 5 mg IVPUSH Q4H PRN PRN Reason: TACHYCARDIA Multivitamins/Minerals/Vitamin C (Tab-A-Vit -) 1 tab PO DAILY [facility] Last Admin: 01/10/19 10:41 Dose: 1 tab Thiamine HCl (Vitamin B1 -) 100 mg PO DAILY [facility] Last Admin: 01/10/19 10:41 Dose: 100 mg Assmt / plan 83 y/o male with hx of PAF / CHF / CAD / admitted from [address] [place] [address] with progressive inc of SOB. Found to be in HF, and hypotension. echo 12/2018: sev dec lvef, global hk, nl rv, lae, mild mr, mild tr, rvsp 30-40 #HFrEF per echo above improving with lasix but treatment limited by low BP daily weights / labs lasix changed to PO to BID -- monitor bp #PAF hx of recurrent falls --- agree with cardio increased risk of A/C outweigh the benefits. continue ASA Low Bp limits medical management --agree with dig for rate control BB increased for rate control # CAD unkown hx # Dementia periods of agitation / sundowning haldol PRN
[2019-01-10] MEDS: HALOPERIDOL LACTATE 5 MG/ML IM PRN (21:30)
[2019-01-11 06:47] LABS: BASO % 0.7 % (0-2.0); EOS % 1.7 % (0-4.5); HEMATOCRIT 36.4 % (35.4-49); LYMPH % 17.1 % (8-40); MCH 32.7 pg (25.7-33.7); MEAN CELL VOLUME 98.9 fl (80-96); MEAN PLT VOLUME 7.4 fl (7.5-11.1); MONO % 9.6 % (3.8-10.2); NEUT % 70.9 % (42.8-82.8); PLATELET COUNT 269 K/MM3 (134-434); RBC 3.68 M/mm3 (4.00-5.60); RDW 16.5 % (11.9-15.9); WHITE BLOOD COUNT 4.9 K/mm3 (4.0-10.0)
[2019-01-11 07:10] LABS: ANION GAP 8 MMOL/L (8-16); BLOOD UREA NITROGEN 20 mg/dL (7-18); CALCIUM 8.4 mg/dL (8.5-10.1); CHLORIDE 103 mmol/L (98-107); CO2 28 mmol/L (21-32); CREATININE 0.7 mg/dL (0.55-1.3); GLUCOSE,RANDOM 103 mg/dL (74-106); MAGNESIUM 2.1 mg/dL (1.8-2.4); POTASSIUM 3.2 mmol/L (3.5-5.1); SODIUM 140 mmol/L (136-145)
--- NOTE | 2019-01-11 10:00 | PN ---
Progress Note (short form) - Note Progress Note: s: no chest pain, palps dizziness, lightheadedness, sob Current Medications Acetaminophen (Tylenol -) 650 mg PO Q6H PRN PRN Reason: PAIN LEVEL 1-5 Last Admin: 01/09/19 09:10 Dose: 650 mg Aspirin (Ecotrin -) 81 mg PO DAILY [facility] Last Admin: 01/10/19 10:41 Dose: 81 mg Digoxin (Lanoxin -) 0.125 mg PO DAILY [facility] Last Admin: 01/10/19 10:41 Dose: 0.125 mg Folic Acid (Folic Acid -) 1 mg PO DAILY [facility] Last Admin: 01/10/19 10:41 Dose: 1 mg Furosemide (Lasix -) 40 mg PO DAILY [facility] Haloperidol (Haldol Injection (Fast Acting) -) 3 mg IM Q4H PRN PRN Reason: AGITATION Last Admin: 01/10/19 21:30 Dose: 3 mg Metoprolol Succinate (Toprol Xl -) 75 mg PO BID [facility] Last Admin: 01/10/19 21:30 Dose: 75 mg Metoprolol Tartrate (Lopressor Injection -) 5 mg IVPUSH Q4H PRN PRN Reason: TACHYCARDIA Multivitamins/Minerals/Vitamin C (Tab-A-Vit -) 1 tab PO DAILY [facility] Last Admin: 01/10/19 10:41 Dose: 1 tab Thiamine HCl (Vitamin B1 -) 100 mg PO DAILY [facility] Last Admin: 01/10/19 10:41 Dose: 100 mg - Objective Vital Signs Period Temp Pulse Resp BP Sys/Campbell Pulse Ox Last 24 Hr 97.4 F-98.0 F 100-125 20-20 110-126/63-81 96-96 Constitutional: Yes: No Distress, Calm Eyes: No: Sclera Icterus HENT: No: Nasal Congestion Cardiovascular: Yes: Pulse Irregular, S1, S2, Other (PMI non diplaced). No: JVD , Gallop, Murmur Respiratory: Yes: CTA Bilaterally (anteriorly (michelle vest on)). No: Accessory Muscle Use, Rales, Wheezes Gastrointestinal: Yes: Normal Bowel Sounds, Soft. No: Tenderness Musculoskeletal: Yes: Other (No kyphosis) Extremities: No: Cold Edema: No Integumentary: No: Jaundice Neurological: Yes: Alert. No: Oriented (thinks he lives in [place] on [address] [place] [address] (resident of [facility]) Psychiatric: No: Agitated Assessment/Plan cxr 01/08: no change in "some congestive changes" ecg: afib rvr, nonspec tw changes, no st changes echo 12/2018: sev dec lvef, global hk, nl rv, lae, mild mr, mild tr, rvsp 30-40 tele: AF 100-110s occ 120s. VT x 8 beats, 10 beats a/p: 83 m hx pafib, chf, cad (?details), here with sob. sob, acute systolic chf: -echo here with severely reduced lvef, no priors to compare -BNP 16K (no priors) -receiving iv lasix 40 bid. -01/09: wt coming down slowly (6 lbs since admit). no JVD. bun trending up, creat stable. cxr unchanged (mild changes). continue same lasix today--if appears similarly euvolemic and bun/creat rising tomorrow, would transition to oral lasix. -soft BPs. prioritizing BB for syst chf and afib rate control. deferring ANIKET -per Dr. Bolanos: d/w'd dr goodwin, who feels his dementia is likely significant with limited quality of life and agitation. d/w'd dr riley who knows pt from [address] [place] [address]--only recently met him, difficult to expound on extent of his dementia and/or reduced life expectancy as a result -if tele stable here (i.e. no prolonged VT), will defer final decision on primary prevention ICD for outpatient assessment and discussion with pt/son based on his functional status/mental status/qual of life and their preferences. d/w'd dr riley the plan as well. - 01/10- weight stable, BUN/Cr stable. appears euvolemic with shortness of breath improved. continue lasix 40 mg PO daily VTach: -runs of NSVT on tele, up to 8-10 beats -K > 4, Mag > 2 -cont BB as doing, HF optimization as doing - uptitration of bb limited by low BP cad: -past history details unknown, no signs acs here -cont asa -outpt cardio f/u pafib: -pt reports that 10/2018 had 2 falls and syncope and admitted in [place] and had loop recorder placed. he then [facility]. He is still unsteady on his feet, thus given his fall hx and continued poor ambulation, risk of ac>benefits at this time, cont asa. -RVR here, possibly 2/2 chf or possibly cause of chf. Cont toprol. Also added dig for rate control, given soft BPs here - HR improved with increased metoprolol, digoxin, limited ability to uptitrate bb due to low BPs -would consider stopping digoxin if HR well controlled once pt is diuresed, on max tolerated BB dose. -monitor dig levels (good thus far) dementia, agitation/sundowning here: - manage per primary
[2019-01-11] MEDS: FUROSEMIDE 40 MG TABLET (FP) PO SCH (10:48)
[2019-01-11] MEDS: THIAMINE HCL 100 MG TABLET (FP) PO SCH (10:48)
[2019-01-11] MEDS: ASPIRIN COATED 81 MG TABLET.EC PO SCH (10:48)
[2019-01-11] MEDS: DIGOXIN 0.125 MG TABLET (FP) PO SCH (10:49)
[2019-01-11] MEDS: MULTIVITAMINS (DAILY MVI) TABLET (FP) PO SCH (10:49)
[2019-01-11] MEDS: FOLIC ACID 1 MG TABLET (FP) PO SCH (10:49)
--- NOTE | 2019-01-11 12:47 | PN ---
Progress Note (short form) - Note Progress Note: sitting in bed comfortable / confused / oriented X2 Vital Signs Period Temp Pulse Resp BP Sys/Campbell Pulse Ox Last 24 Hr 97.4 F-98.0 F 90-125 20-20 93-126/63-81 96-96 neck supple heart S1/S2 lungs dull left base and rales at both basses / rhonchi abd soft non tender ext no edema / no calf tenderness multiple scab/ injuries in multiple stages of healing to both lower extremities CBC, BMP 01/11/19 05:30 01/11/19 05:30 CBC, BMP 01/07/19 05:30 01/07/19 05:30 CXR: mild chf EKG: afib rvr, nonspec tw changes, no st changes tele: afib, rvr 120s ECHO: 12/2018: sev dec lvef, global hk, nl rv, lae, mild mr, mild tr, rvsp 30-40 Microbiology 01/04/19 18:40 Urine - Urine Clean Catch Urine Culture - Final Active Medications Acetaminophen (Tylenol -) 650 mg PO Q6H PRN PRN Reason: PAIN LEVEL 1-5 Last Admin: 01/09/19 09:10 Dose: 650 mg Aspirin (Ecotrin -) 81 mg PO DAILY [facility] Last Admin: 01/11/19 10:48 Dose: 81 mg Digoxin (Lanoxin -) 0.125 mg PO DAILY [facility] Last Admin: 01/11/19 10:49 Dose: 0.125 mg Folic Acid (Folic Acid -) 1 mg PO DAILY [facility] Last Admin: 01/11/19 10:49 Dose: 1 mg Furosemide (Lasix -) 40 mg PO DAILY [facility] Last Admin: 01/11/19 10:48 Dose: 40 mg Haloperidol (Haldol Injection (Fast Acting) -) 3 mg IM Q4H PRN PRN Reason: AGITATION Last Admin: 01/10/19 21:30 Dose: 3 mg Metoprolol Succinate (Toprol Xl -) 75 mg PO BID [facility] Last Admin: 01/11/19 10:48 Dose: 75 mg Metoprolol Tartrate (Lopressor Injection -) 5 mg IVPUSH Q4H PRN PRN Reason: TACHYCARDIA Multivitamins/Minerals/Vitamin C (Tab-A-Vit -) 1 tab PO DAILY [facility] Last Admin: 01/11/19 10:49 Dose: 1 tab Thiamine HCl (Vitamin B1 -) 100 mg PO DAILY [facility] Last Admin: 01/11/19 10:48 Dose: 100 mg Assmt / plan 83 y/o male with hx of PAF / CHF / CAD / admitted from [facility] with [facility] of SOB. Found to be in HF, and hypotension. echo 12/2018: sev dec lvef, global hk, nl rv, lae, mild mr, mild tr, rvsp 30-40 #HFrEF per echo above improving with lasix but treatment limited by low BP daily weights / labs lasix changed to PO to BID -- monitor bp #PAF hx of recurrent falls --- agree with cardio increased risk of A/C outweigh the benefits. episodes of SVT ?? contniue to monitor tele and maximize lytes continue ASA Low Bp limits medical management --agree with dig for rate control BB increased for rate control # CAD unkown hx # Dementia periods of agitation / sundowning haldol PRN
[2019-01-11] MEDS ORDERED: POTASSIUM CHLORIDE TABS 20 MEQ TABLET.ER (FP) PO ONE ×2 (15:45→23:05)
[2019-01-11] MEDS: HALOPERIDOL LACTATE 5 MG/ML IM PRN (23:00)
[2019-01-12 06:46] LABS: EOS % 1.8 % (0-4.5); HEMATOCRIT 35.9 % (35.4-49); HEMOGLOBIN 11.8 GM/dL (11.7-16.9); MCH 32.7 pg (25.7-33.7); MCHC 32.9 g/dl (32.0-35.9); MEAN CELL VOLUME 99.3 fl (80-96); MEAN PLT VOLUME 7.4 fl (7.5-11.1); MONO % 9.6 % (3.8-10.2); NEUT % 69.6 % (42.8-82.8); PLATELET COUNT 239 K/MM3 (134-434); RBC 3.62 M/mm3 (4.00-5.60); RDW 16.7 % (11.9-15.9); WHITE BLOOD COUNT 4.1 K/mm3 (4.0-10.0)
[2019-01-12 07:06] LABS: ANION GAP 6 MMOL/L (8-16); BLOOD UREA NITROGEN 16 mg/dL (7-18); CALCIUM 8.1 mg/dL (8.5-10.1); CHLORIDE 104 mmol/L (98-107); CO2 32 mmol/L (21-32); CREATININE 0.7 mg/dL (0.55-1.3); GLUCOSE,RANDOM 101 mg/dL (74-106); POTASSIUM 3.1 mmol/L (3.5-5.1); SODIUM 142 mmol/L (136-145)
[2019-01-12] MEDS ORDERED: POTASSIUM CHLORIDE TABS 20 MEQ TABLET.ER (FP) PO ONE (09:27)
[2019-01-12] MEDS: ASPIRIN COATED 81 MG TABLET.EC PO SCH (09:31)
[2019-01-12] MEDS: FOLIC ACID 1 MG TABLET (FP) PO SCH (09:31)
[2019-01-12] MEDS: THIAMINE HCL 100 MG TABLET (FP) PO SCH (09:31)
[2019-01-12] MEDS: DIGOXIN 0.125 MG TABLET (FP) PO SCH (09:31)
[2019-01-12] MEDS: FUROSEMIDE 40 MG TABLET (FP) PO SCH (09:31)
[2019-01-12] MEDS: MULTIVITAMINS (DAILY MVI) TABLET (FP) PO SCH (09:32)
--- NOTE | 2019-01-12 10:20 | PN ---
Progress Note (short form) - Note Progress Note: 83 y/o male found lying in bed.Appears comfortable. Vital Signs Period Temp Pulse Resp BP Sys/Campbell Pulse Ox Last 24 Hr 97.5 F-98.0 F 87-127 20-20 93-131/61-84 95 CBC, BMP 01/12/19 05:30 01/12/19 05:30 HEENT- Normocephalic Neck- supple Lungs- CTAB Heart- S1/S2 Abd- Soft, nt Ext- No LE edema Multiple excoriations on B/L LEs Active Medications Acetaminophen (Tylenol -) 650 mg PO Q6H PRN PRN Reason: PAIN LEVEL 1-5 Last Admin: 01/09/19 09:10 Dose: 650 mg Aspirin (Ecotrin -) 81 mg PO DAILY [facility] Last Admin: 01/12/19 09:31 Dose: 81 mg Digoxin (Lanoxin -) 0.125 mg PO DAILY [facility] Last Admin: 01/12/19 09:31 Dose: 0.125 mg Folic Acid (Folic Acid -) 1 mg PO DAILY [facility] Last Admin: 01/12/19 09:31 Dose: 1 mg Furosemide (Lasix -) 40 mg PO DAILY [facility] Last Admin: 01/12/19 09:31 Dose: 40 mg Haloperidol (Haldol Injection (Fast Acting) -) 3 mg IM Q4H PRN PRN Reason: AGITATION Last Admin: 01/11/19 23:00 Dose: 3 mg Metoprolol Succinate (Toprol Xl -) 100 mg PO BID [facility] Last Admin: 01/12/19 09:32 Dose: 100 mg Metoprolol Tartrate (Lopressor Injection -) 5 mg IVPUSH Q4H PRN PRN Reason: TACHYCARDIA Multivitamins/Minerals/Vitamin C (Tab-A-Vit -) 1 tab PO DAILY [facility] Last Admin: 01/12/19 09:32 Dose: 1 tab Thiamine HCl (Vitamin B1 -) 100 mg PO DAILY [facility] Last Admin: 01/12/19 09:31 Dose: 100 mg Assmt / plan #HFrEF improving with lasix daily weights- 5 lb wt loss in 3 days PO lasix monitor bp #Hypokalemia Potassium replaced Trend lytes #PAF hx of recurrent falls --- agree with cardio increased risk of A/C outweigh the benefits. episodes of SVT ?? continue to monitor tele continue ASA BB for rate control # Dementia Behavior stable haldol PRN
--- NOTE | 2019-01-12 12:01 | PN ---
Progress Note (short form) - Note Progress Note: s: no cp palps dizzy sob o: Vital Signs Period Temp Pulse Resp BP Sys/Campbell Pulse Ox Last 24 Hr 97.5 F-98.0 F 87-127 20-20 114-131/61-84 95 nad no jvd irreg, s1s2 no mrg scattered rhonchi, nl eff aaox3 no le edema bl, no c/c abd nt nd pos bs no jaundice diaphoresis Current Medications Generic Name Dose Route Start Last Admin Trade Name Freq PRN Reason Stop Dose Admin Acetaminophen 650 mg 01/06/19 11:08 01/09/19 09:10 Tylenol - PO 650 mg Q6H PRN Administration PAIN LEVEL 1-5 Aspirin 81 mg 01/05/19 10:00 01/12/19 09:31 Ecotrin - PO 81 mg DAILY [facility] Administration Digoxin 0.125 mg 01/07/19 10:15 01/12/19 09:31 Lanoxin - PO 0.125 mg DAILY [facility] Administration Folic Acid 1 mg 01/09/19 10:00 01/12/19 09:31 Folic Acid - PO 1 mg DAILY [facility] Administration Furosemide 40 mg 01/11/19 10:00 01/12/19 09:31 Lasix - PO 40 mg DAILY [facility] Administration Haloperidol 3 mg 01/08/19 18:09 01/11/19 23:00 Haldol Injection (Fast Acting) - IM 3 mg Q4H PRN Administration AGITATION Metoprolol Succinate 100 mg 01/12/19 09:26 01/12/19 09:32 Toprol Xl - PO 100 mg BID [facility] Administration Metoprolol Tartrate 5 mg 01/05/19 09:24 Lopressor Injection - IVPUSH Q4H PRN TACHYCARDIA Multivitamins/Minerals/Vitamin C 1 tab 01/09/19 10:00 01/12/19 09:32 Tab-A-Vit - PO 1 tab DAILY [facility] Administration Thiamine HCl 100 mg 01/09/19 10:00 01/12/19 09:31 Vitamin B1 - PO 100 mg DAILY [facility] Administration CBC, BMP 01/12/19 05:30 01/12/19 05:30 cxr 01/08: no change in "some congestive changes" ecg: afib rvr, nonspec tw changes, no st changes echo 12/2018: sev dec lvef, global hk, nl rv, lae, mild mr, mild tr, rvsp 30-40 tele: afib, rate ok, brief nsvt a/p: 83 m hx pafib, chf, cad (?details), here with sob. sob, acute systolic chf: -echo here with severely reduced lvef, no priors to compare -BNP 16K (no priors) -receiving iv lasix 40 bid. -01/09: wt coming down slowly (6 lbs since admit). no JVD. bun trending up, creat stable. cxr unchanged (mild changes). continue same lasix today--if appears similarly euvolemic and bun/creat rising tomorrow, would transition to oral lasix. -soft BPs. prioritizing BB for syst chf and afib rate control. deferring ANIKET -per Dr. Bolanos: d/w'd dr goodwin, who feels his dementia is likely significant with limited quality of life and agitation. d/w'd dr riley who knows pt from [address] [place] [address]--only recently met him, difficult to expound on extent of his dementia and/or reduced life expectancy as a result -if tele stable here (i.e. no prolonged VT), will defer final decision on primary prevention ICD for outpatient assessment and discussion with pt/son based on his functional status/mental status/qual of life and their preferences. d/w'd dr riley the plan as well. - 01/10-14 weight stable, BUN/Cr stable. appears euvolemic with shortness of breath improved. continue lasix 40 mg PO daily VTach: -runs of NSVT on tele, up to 8-10 beats -K > 4, Mag > 2 -cont BB as doing, HF optimization as doing cad: -past history details unknown, no signs acs here -cont asa -outpt cardio f/u pafib: -pt reports that 10/2018 had 2 falls and syncope and admitted in [place] and had loop recorder placed. he then went to [facility] and recently [place]. He is still unsteady on his feet, thus given his fall hx and continued poor ambulation, risk of ac>benefits at this time, cont asa. -RVR here, possibly 2/2 chf or possibly cause of chf. Cont toprol. Also added dig for rate control, given soft BPs here - HR improved with increased metoprolol, digoxin dementia, agitation/sundowning here: - manage per primary cardiac dixon stable
[2019-01-13 07:40] LABS: BASO % 0.7 % (0-2.0); EOS % 1.8 % (0-4.5); HEMATOCRIT 37.5 % (35.4-49); HEMOGLOBIN 12.4 GM/dL (11.7-16.9); LYMPH % 15.9 % (8-40); MCH 32.7 pg (25.7-33.7); MEAN PLT VOLUME 7.5 fl (7.5-11.1); MONO % 7.7 % (3.8-10.2); NEUT % 73.9 % (42.8-82.8); PLATELET COUNT 227 K/MM3 (134-434); RBC 3.79 M/mm3 (4.00-5.60); RDW 16.8 % (11.9-15.9)
[2019-01-13 08:18] LABS: ANION GAP 7 MMOL/L (8-16); BLOOD UREA NITROGEN 20 mg/dL (7-18); CALCIUM 8.8 mg/dL (8.5-10.1); CHLORIDE 103 mmol/L (98-107); CO2 30 mmol/L (21-32); CREATININE 0.6 mg/dL (0.55-1.3); GLUCOSE,RANDOM 94 mg/dL (74-106); POTASSIUM 3.5 mmol/L (3.5-5.1); SODIUM 141 mmol/L (136-145)
[2019-01-13] MEDS: MULTIVITAMINS (DAILY MVI) TABLET (FP) PO SCH (09:27)
[2019-01-13] MEDS: THIAMINE HCL 100 MG TABLET (FP) PO SCH (09:27)
[2019-01-13] MEDS: DIGOXIN 0.125 MG TABLET (FP) PO SCH (09:27)
[2019-01-13] MEDS: FOLIC ACID 1 MG TABLET (FP) PO SCH (09:27)
[2019-01-13] MEDS: FUROSEMIDE 40 MG TABLET (FP) PO SCH (09:27)
[2019-01-13] MEDS: ASPIRIN COATED 81 MG TABLET.EC PO SCH (09:27)
[2019-01-13] MEDS ORDERED: POTASSIUM CHLORIDE TABS 20 MEQ TABLET.ER (FP) PO ONE (09:49)
--- NOTE | 2019-01-13 10:10 | PN ---
Progress Note (short form) - Note Progress Note: 83 y/o male found sitting in bed. Appears comfortable. Denies SOB. Vital Signs Period Temp Pulse Resp BP Sys/Campbell Pulse Ox Last 24 Hr 97.1 F-98 F 98-107 18-20 98-136/61-89 96 CBC, BMP 01/13/19 05:45 01/13/19 05:45 HEENT- Normocephalic Neck- Supple Lungs- CTAb Heart- S1/S2 Abd- Soft, nt Ext- No LE edema Multiple excoriations B/L LEs Active Medications Acetaminophen (Tylenol -) 650 mg PO Q6H PRN PRN Reason: PAIN LEVEL 1-5 Last Admin: 01/09/19 09:10 Dose: 650 mg Aspirin (Ecotrin -) 81 mg PO DAILY [facility] Last Admin: 01/13/19 09:27 Dose: 81 mg Digoxin (Lanoxin -) 0.125 mg PO DAILY [facility] Last Admin: 01/13/19 09:27 Dose: 0.125 mg Folic Acid (Folic Acid -) 1 mg PO DAILY [facility] Last Admin: 01/13/19 09:27 Dose: 1 mg Furosemide (Lasix -) 40 mg PO DAILY [facility] Last Admin: 01/13/19 09:27 Dose: 40 mg Haloperidol (Haldol Injection (Fast Acting) -) 3 mg IM Q4H PRN PRN Reason: AGITATION Last Admin: 01/11/19 23:00 Dose: 3 mg Metoprolol Succinate (Toprol Xl -) 100 mg PO BID [facility] Last Admin: 01/13/19 09:27 Dose: 100 mg Metoprolol Tartrate (Lopressor Injection -) 5 mg IVPUSH Q4H PRN PRN Reason: TACHYCARDIA Multivitamins/Minerals/Vitamin C (Tab-A-Vit -) 1 tab PO DAILY [facility] Last Admin: 01/13/19 09:27 Dose: 1 tab Potassium Chloride (K-Dur -) 40 meq PO ONCE ONE Stop: 01/13/19 09:50 Thiamine HCl (Vitamin B1 -) 100 mg PO DAILY [facility] Last Admin: 01/13/19 09:27 Dose: 100 mg Assmt / plan #HFrEF improving with lasix daily weights- wt 129 lbs today Cont 40 mg lasix PO monitor bp #Hypokalemia Potassium normal 3.5 Trend lytes #PAF hx of recurrent falls --- agree with cardio increased risk of A/C outweigh the benefits. continue ASA BB for rate control # Dementia Behavior intermittent Pt pulling equipment haldol PRN Plan- Case discussed with Lilia. TAZ Telemetry. Transfer to med-surg. Trial without Sailaja vest. Alicia Billy [employer]
--- NOTE | 2019-01-13 10:40 | PN ---
Progress Note (short form) - Note Progress Note: s: no cp palps dizzy sob o: Vital Signs Period Temp Pulse Resp BP Sys/Campbell Pulse Ox Last 24 Hr 97.1 F-98 F 98-107 18-20 98-136/61-89 96 nad no jvd irreg, s1s2 no mrg cta bl nl eff no le edema bl, no c/c abd nt nd pos bs no jaundice diaphoresis Current Medications Generic Name Dose Route Start Last Admin Trade Name Freq PRN Reason Stop Dose Admin Acetaminophen 650 mg 01/06/19 11:08 01/09/19 09:10 Tylenol - PO 650 mg Q6H PRN Administration PAIN LEVEL 1-5 Aspirin 81 mg 01/05/19 10:00 01/13/19 09:27 Ecotrin - PO 81 mg DAILY [facility] Administration Digoxin 0.125 mg 01/07/19 10:15 01/13/19 09:27 Lanoxin - PO 0.125 mg DAILY [facility] Administration Folic Acid 1 mg 01/09/19 10:00 01/13/19 09:27 Folic Acid - PO 1 mg DAILY [facility] Administration Furosemide 40 mg 01/11/19 10:00 01/13/19 09:27 Lasix - PO 40 mg DAILY [facility] Administration Haloperidol 3 mg 01/08/19 18:09 01/11/19 23:00 Haldol Injection (Fast Acting) - IM 3 mg Q4H PRN Administration AGITATION Metoprolol Succinate 100 mg 01/12/19 09:26 01/13/19 09:27 Toprol Xl - PO 100 mg BID [facility] Administration Metoprolol Tartrate 5 mg 01/05/19 09:24 Lopressor Injection - IVPUSH Q4H PRN TACHYCARDIA Multivitamins/Minerals/Vitamin C 1 tab 01/09/19 10:00 01/13/19 09:27 Tab-A-Vit - PO 1 tab DAILY [facility] Administration Thiamine HCl 100 mg 01/09/19 10:00 01/13/19 09:27 Vitamin B1 - PO 100 mg DAILY [facility] Administration CBC, BMP 01/13/19 05:45 01/13/19 05:45 cxr 01/08: no change in "some congestive changes" ecg: afib rvr, nonspec tw changes, no st changes echo 12/2018: sev dec lvef, global hk, nl rv, lae, mild mr, mild tr, rvsp 30-40 tele: afib, rate ok a/p: 83 m hx pafib, chf, cad (?details), here with sob. sob, acute systolic chf: -echo here with severely reduced lvef, no priors to compare -BNP 16K (no priors) -receiving iv lasix 40 bid. -01/09: wt coming down slowly (6 lbs since admit). no JVD. bun trending up, creat stable. cxr unchanged (mild changes). continue same lasix today--if appears similarly euvolemic and bun/creat rising tomorrow, would transition to oral lasix. -soft BPs. prioritizing BB for syst chf and afib rate control. deferring ANIKET -per Dr. Bolanos: d/w'd dr goodwin, who feels his dementia is likely significant with limited quality of life and agitation. d/w'd dr riley who knows pt from [address] [place] [address]--only recently met him, difficult to expound on extent of his dementia and/or reduced life expectancy as a result -if tele stable here (i.e. no prolonged VT), will defer final decision on primary prevention ICD for outpatient assessment and discussion with pt/son based on his functional status/mental status/qual of life and their preferences. d/w'd dr riley the plan as well. - 01/10-15 BUN/Cr stable. appears euvolemic with shortness of breath improved. continue lasix 40 mg PO daily VTach: -runs of NSVT on tele, up to 8-10 beats -K > 4, Mag > 2 -cont BB as doing, less nsvt with increased bb cad: -past history details unknown, no signs acs here -cont asa -outpt cardio f/u pafib: -pt reports that 10/2018 had 2 falls and syncope and admitted in [place] and had loop recorder placed. he then went to [facility] and recently [facility]. He is still unsteady on his feet, thus given his fall hx and continued poor ambulation, risk of ac>benefits at this time, cont asa. -RVR here, possibly 2/2 chf or possibly cause of chf. Cont toprol. Also added dig for rate control, given soft BPs here - HR improved with increased metoprolol, digoxin dementia, agitation/sundowning here: - manage per primary cardiac dixon stable for dc with outpt f/u
[2019-01-13] MEDS: POTASSIUM CHLORIDE TABS 20 MEQ TABLET.ER (FP) PO SCH (20:48)
[2019-01-13] MEDS: HALOPERIDOL LACTATE 5 MG/ML IM PRN (22:07)
[2019-01-14 07:25] LABS: BASO % 0.9 % (0-2.0); EOS % 2.2 % (0-4.5); HEMATOCRIT 37.8 % (35.4-49); HEMOGLOBIN 12.6 GM/dL (11.7-16.9); LYMPH % 16.7 % (8-40); MCH 32.6 pg (25.7-33.7); MCHC 33.4 g/dl (32.0-35.9); MEAN CELL VOLUME 97.6 fl (80-96); MEAN PLT VOLUME 8.1 fl (7.5-11.1); NEUT % 72.2 % (42.8-82.8); PLATELET COUNT 225 K/MM3 (134-434); RBC 3.87 M/mm3 (4.00-5.60); RDW 16.7 % (11.9-15.9)
[2019-01-14 07:56] LABS: ANION GAP 7 MMOL/L (8-16); BLOOD UREA NITROGEN 20 mg/dL (7-18); CALCIUM 8.7 mg/dL (8.5-10.1); CHLORIDE 102 mmol/L (98-107); CO2 32 mmol/L (21-32); CREATININE 0.7 mg/dL (0.55-1.3); GLUCOSE,RANDOM 86 mg/dL (74-106); POTASSIUM 4.1 mmol/L (3.5-5.1); SODIUM 140 mmol/L (136-145)
--- NOTE | 2019-01-14 09:15 | PN ---
Progress Note, Physician Chief Complaint: sob History of Present Illness: sleepy--wakes for exam. denies sob, cp, palpit, leg swelling - Current Medication List Current Medications: Active Medications Acetaminophen (Tylenol -) 650 mg PO Q6H PRN PRN Reason: PAIN LEVEL 1-5 Last Admin: 01/09/19 09:10 Dose: 650 mg Aspirin (Ecotrin -) 81 mg PO DAILY [facility] Last Admin: 01/13/19 09:27 Dose: 81 mg Digoxin (Lanoxin -) 0.125 mg PO DAILY [facility] Last Admin: 01/13/19 09:27 Dose: 0.125 mg Folic Acid (Folic Acid -) 1 mg PO DAILY [facility] Last Admin: 01/13/19 09:27 Dose: 1 mg Furosemide (Lasix -) 40 mg PO DAILY [facility] Last Admin: 01/13/19 09:27 Dose: 40 mg Haloperidol (Haldol Injection (Fast Acting) -) 3 mg IM Q4H PRN PRN Reason: AGITATION Last Admin: 01/13/19 22:07 Dose: 3 mg Metoprolol Succinate (Toprol Xl -) 100 mg PO BID [facility] Last Admin: 01/13/19 22:10 Dose: Not Given Metoprolol Tartrate (Lopressor Injection -) 5 mg IVPUSH Q4H PRN PRN Reason: TACHYCARDIA Multivitamins/Minerals/Vitamin C (Tab-A-Vit -) 1 tab PO DAILY [facility] Last Admin: 01/13/19 09:27 Dose: 1 tab Potassium Chloride (K-Dur -) 40 meq PO DAILY [facility] Last Admin: 01/13/19 20:48 Dose: 40 meq Thiamine HCl (Vitamin B1 -) 100 mg PO DAILY [facility] Last Admin: 01/13/19 09:27 Dose: 100 mg - Objective Vital Signs: Vital Signs Temperature 98.1 F 01/14/19 07:44 Pulse Rate 98 H 01/14/19 07:44 Respiratory Rate 20 01/14/19 07:44 Blood Pressure 115/80 01/14/19 07:44 O2 Sat by Pulse Oximetry (%) 95 01/14/19 07:44 Constitutional: Yes: Well Nourished, No Distress, Calm Cardiovascular: Yes: Pulse Irregular, S1, S2. No: JVD, Gallop, Murmur Respiratory: Yes: Regular, CTA Bilaterally, Diminished (bases). No: Accessory Muscle Use Extremities: No: Cold Edema: Yes (trace ankles) Neurological: Yes: Alert. No: Seizure Psychiatric: No: Agitated Labs: CBC, BMP 01/14/19 07:00 01/14/19 07:00 INR, PTT INR 1.26 (0.83-1.09) H 01/04/19 13:46 Assessment/Plan cxr 01/11: bilateral small pleural effusions, no vascular redistrib pattern ecg: afib rvr, nonspec tw changes, no st changes echo 12/2018: sev dec lvef, global hk, nl rv, lae, mild mr, mild tr, rvsp 30-40 tele: a/p: 83 m hx pafib, chf, cad (?details), here with sob. sob, acute systolic chf: -echo here with severely reduced lvef, no priors to compare -BNP 16K (no priors) -receiving iv lasix 40 bid. -01/09: wt coming down slowly (6 lbs since admit). no JVD. bun trending up, creat stable. cxr unchanged (mild changes). continue same lasix today--if appears similarly euvolemic and bun/creat rising tomorrow, would transition to oral lasix. - 01/10-: wt stable 129-130 from 139 initially. CXR small effusions. appears euvolemic clinically, no SOB. continue lasix 40 mg PO daily -soft BPs. prioritizing BB for syst chf and afib rate control. deferring ANIKET -per Dr. Bolanos: d/w'd dr goodwin, who feels his dementia is likely significant with limited quality of life and agitation. d/w'd dr riley who knows pt from [facility] outpt setting--only recently met him, difficult to expound on extent of his dementia and/or reduced life expectancy as a result. suspect he will not be a good candidate for primary prevention ICD, but plan to defer this to outpatient assessment and discussion with pt/son based on his functional status/mental status/qual of life after hospital discharge. d/w'd dr riley the plan as well. pafib: -pt reports that 10/2018 had 2 falls and syncope and admitted in [place] and had loop recorder placed. he then went to snf and recently assisted. He is still unsteady on his feet, thus given his fall hx and continued poor ambulation, risk of ac>benefits at this time, cont asa. -HRs rapid--improved with increased metoprolol, addition of digoxin, and tx of HF -same meds, repeat dig level today VTach: -runs of NSVT on tele, up to 8-10 beats -K > 4, Mag > 2 -cont BB as doing -no signif ventric arrhythmias on tele since then cad: -past history details unknown, no signs acs here -cont asa -outpt cardio f/u dementia, agitation/sundowning here: - manage per primary OK FOR D/C FROM [facility] P.O.V.
[2019-01-14] MEDS: POTASSIUM CHLORIDE TABS 20 MEQ TABLET.ER (FP) PO SCH (09:20)
[2019-01-14] MEDS: THIAMINE HCL 100 MG TABLET (FP) PO SCH (09:20)
[2019-01-14] MEDS: DIGOXIN 0.125 MG TABLET (FP) PO SCH (09:20)
[2019-01-14] MEDS: FUROSEMIDE 40 MG TABLET (FP) PO SCH (09:20)
[2019-01-14] MEDS: MULTIVITAMINS (DAILY MVI) TABLET (FP) PO SCH (09:21)
[2019-01-14] MEDS: FOLIC ACID 1 MG TABLET (FP) PO SCH (09:21)
[2019-01-14] MEDS: ASPIRIN COATED 81 MG TABLET.EC PO SCH (09:21)
[2019-01-14] MEDS ORDERED: ACETAMINOPHEN 325 MG TABLET (FP) PO PRN (12:26)
[2019-01-14] MEDS ORDERED: HALOPERIDOL LACTATE 5 MG/ML IM PRN (12:26)
--- NOTE | 2019-01-14 14:43 | PN ---
Progress Note (short form) - Note Progress Note: sitting in bed comfortable / confused / oriented X2 son at bedside discussed POC with son -- arrangements for STR in place for early D/C this week to STR Vital Signs Period Temp Pulse Resp BP Sys/Campbell Pulse Ox Last 24 Hr 97.4 F-98.4 F 72-105 18-20 98-128/56-80 95-95 neck supple heart S1/S2 lungs dull left base and rales at both basses / rhonchi abd soft non tender ext no edema / no calf tenderness multiple scab/ injuries in multiple stages of healing to both lower extremities CBC, BMP 01/14/19 07:00 01/14/19 07:00 CBC, BMP 01/11/19 05:30 01/11/19 05:30 CXR: mild chf EKG: afib rvr, nonspec tw changes, no st changes tele: afib, rvr 120s ECHO: 12/2018: sev dec lvef, global hk, nl rv, lae, mild mr, mild tr, rvsp 30-40 Microbiology 01/04/19 18:40 Urine - Urine Clean Catch Urine Culture - Final Active Medications Acetaminophen (Tylenol -) 650 mg PO Q6H PRN PRN Reason: PAIN LEVEL 1-5 Aspirin (Ecotrin -) 81 mg PO DAILY [facility] Digoxin (Lanoxin -) 0.125 mg PO DAILY [facility] Folic Acid (Folic Acid -) 1 mg PO DAILY [facility] Furosemide (Lasix -) 40 mg PO DAILY [facility] Haloperidol (Haldol Injection (Fast Acting) -) 3 mg IM Q4H PRN PRN Reason: AGITATION Metoprolol Succinate (Toprol Xl -) 100 mg PO BID [facility] Multivitamins/Minerals/Vitamin C (Tab-A-Vit -) 1 tab PO DAILY [facility] Potassium Chloride (K-Dur -) 40 meq PO DAILY [facility] Last Admin: 01/14/19 09:20 Dose: 40 meq Assmt / plan 83 y/o male with hx of PAF / CHF / CAD / admitted from [address] [place] [address] with progressive inc of SOB. Found to be in HF, and hypotension. echo 12/2018: sev dec lvef, global hk, nl rv, lae, mild mr, mild tr, rvsp 30-40 #HFrEF per echo above improving with lasix but treatment limited by low BP daily weights / labs lasix changed to PO to BID -- monitor bp #PAF hx of recurrent falls --- agree with cardio increased risk of A/C outweigh the benefits. episodes of SVT ?? contniue to monitor tele and maximize lytes keep K >4 and Mag >2 continue ASA Low Bp limits medical management --agree with dig for rate control BB increased for rate control no further arrhythmia on telemetry # CAD unkown hx # Dementia periods of agitation / haldol PRN disposition to go to [facility] for STR wednesday
[2019-01-15] MEDS: ASPIRIN COATED 81 MG TABLET.EC PO SCH (10:26)
--- NOTE | 2019-01-15 11:19 | RAPID ---
Physical Examination Vital Signs: Vital Signs Temperature 97.6 F 01/15/19 08:45 Pulse Rate 113 H 01/15/19 10:45 Respiratory Rate 20 01/15/19 10:45 Blood Pressure 107/72 01/15/19 10:45 O2 Sat by Pulse Oximetry (%) 95 01/15/19 08:41 Labs: CBC, BMP 01/14/19 07:00 01/14/19 07:00 Rapid Response - Rapid Response Assessment: rapid response was called that patient had an unwitnessed fall; he was getting out of bed and then 2 nurses heard the bed alarm and they found him sitting on the floor- he denied hitting his head denies having LOC no headaches or dizziness vitals; BP 107/72 HR 86 spo2 96% RA BGM 107 gen: slightly confused (at baseline though) Cardio: irregularly irregular lungs: CTA b/l extremities: cut on his knees plan: EKG pelvis XRAY knee XRAY u/a and culture head CT notified dr. goodwin
[2019-01-15] MEDS: FOLIC ACID 1 MG TABLET (FP) PO SCH (13:04)
[2019-01-15] MEDS: DIGOXIN 0.125 MG TABLET (FP) PO SCH (13:04)
[2019-01-15] MEDS: MULTIVITAMINS (DAILY MVI) TABLET (FP) PO SCH (13:04)
[2019-01-15] MEDS: FUROSEMIDE 40 MG TABLET (FP) PO SCH (13:05)
[2019-01-15] MEDS: POTASSIUM CHLORIDE TABS 20 MEQ TABLET.ER (FP) PO SCH (13:05)
--- NOTE | 2019-01-15 13:53 | PN ---
Progress Note (short form) - Note Progress Note: sitting in chair in the [address] alert and interactive but confused thinks he is at work - Vital Signs Period Temp Pulse Resp BP Sys/Campbell Pulse Ox Last 24 Hr 97.1 F-98 F 78-113 18-98 106-120/62-72 95-95 neck supple heart S1/S2 lungs dull left base and rales at both basses / rhonchi abd soft non tender ext no edema / no calf tenderness / new laceration to left knee no deformities multiple scab/ injuries in multiple stages of healing to both lower extremities CBC, BMP 01/14/19 07:00 01/14/19 07:00 CBC, BMP 01/11/19 05:30 01/11/19 05:30 CXR: mild chf EKG: afib rvr, nonspec tw changes, no st changes tele: afib, rvr 120s ECHO: 12/2018: sev dec lvef, global hk, nl rv, lae, mild mr, mild tr, rvsp 30-40 Microbiology 01/04/19 18:40 Urine - Urine Clean Catch Urine Culture - Final Active Medications Acetaminophen (Tylenol -) 650 mg PO Q6H PRN PRN Reason: PAIN LEVEL 1-5 Aspirin (Ecotrin -) 81 mg PO DAILY [facility] Digoxin (Lanoxin -) 0.125 mg PO DAILY [facility] Last Admin: 01/15/19 13:04 Dose: 0.125 mg Folic Acid (Folic Acid -) 1 mg PO DAILY [facility] Last Admin: 01/15/19 13:04 Dose: 1 mg Furosemide (Lasix -) 40 mg PO DAILY [facility] Last Admin: 01/15/19 13:05 Dose: 40 mg Haloperidol (Haldol Injection (Fast Acting) -) 3 mg IM Q4H PRN PRN Reason: AGITATION Metoprolol Succinate (Toprol Xl -) 100 mg PO BID [facility] Last Admin: 01/15/19 13:04 Dose: 100 mg Multivitamins/Minerals/Vitamin C (Tab-A-Vit -) 1 tab PO DAILY [facility] Last Admin: 01/15/19 13:04 Dose: 1 tab Potassium Chloride (K-Dur -) 40 meq PO DAILY [facility] Last Admin: 01/15/19 13:05 Dose: 40 meq Assmt / plan 83 y/o male with hx of PAF / CHF / CAD / [facility] with progressive inc of SOB. Found to be in HF, and hypotension. echo 12/2018: sev dec lvef, global hk, nl rv, lae, mild mr, mild tr, rvsp 30-40 #s/p fall today - mechanical no injury found #HFrEF per echo above improving with lasix but treatment limited by low BP daily weights / labs lasix changed to PO to BID -- monitor bp #PAF hx of recurrent falls --- agree with cardio increased risk of A/C outweigh the benefits. episodes of SVT ?? contniue to monitor tele and maximize lytes keep K >4 and Mag >2 continue ASA Low Bp limits medical management --agree with dig for rate control BB increased for rate control no further arrhythmia on telemetry -- now off telemetry # CAD unkown hx # Dementia periods of agitation / haldol PRN disposition to go to [facility] for STR wednesday
[2019-01-15 15:51] LABS: URINE APPEARANCE SLCLOUDY; URINE BILIRUBIN NEGATIVE (<2.0 mg/dL); URINE GLUCOSE (UA) NEGATIVE (NEGATIVE); URINE KETONE TRACE (NEGATIVE); URINE LEUK ESTERASE NEGATIVE (NEGATIVE); URINE NITRITE NEGATIVE (NEGATIVE); URINE PROTEIN 1+ (NEGATIVE); URINE UROBILINOGEN NEGATIVE mg/dL (0.2-1.0)
[2019-01-15 16:02] LABS: URINE COLOR YELLOW
[2019-01-15 16:06] LABS: URINE MUCUS RARE
--- NOTE | 2019-01-16 09:26 | DS ---
Physical Examination Vital Signs: Vital Signs Temperature 97.4 F L 01/16/19 06:00 Pulse Rate 97 H 01/16/19 06:00 Respiratory Rate 18 01/16/19 06:00 Blood Pressure 112/77 01/16/19 06:00 O2 Sat by Pulse Oximetry (%) 94 L 01/15/19 21:00 Findings/Remarks: Assmt / plan 83 y/o male with hx of PAF / CHF / CAD / admitted from [address] [place] [address] with progressive inc of SOB. Found to be in HF, and hypotension. echo 12/2018: sev dec lvef, global hk, nl rv, lae, mild mr, mild tr, rvsp 30-40 #s/p fall during hospital stay - mechanical no injury found #HFrEF per echo above improving with lasix but treatment limited by low BP follow weights as out patient lasix changed to 40 mg PO daily -- tolerated well monitor bp as out patient #PAF hx of recurrent falls --- agree with cardio increased risk of A/C outweigh the benefits. keep K >4 and Mag >2 continue ASA Low Bp limits medical management -- digoxin added for rate control current dose of Bblocker well tolerated # CAD unkown hx # Dementia stable / episodes of confusion started namenda 5 mg BID titrate to 10 BID over next 2 - 3 weeks would start 2nd agent after achieving therapeutic dose of namenda - ( exelon) disposition to go to [facility] for STR today Constitutional: Yes: Well Nourished, No Distress, Thin Eyes: Yes: WNL, Conjunctiva Clear HENT: Yes: Atraumatic, Normocephalic Neck: Yes: Supple, Trachea Midline Cardiovascular: Yes: Pulse Irregular Respiratory: Yes: CTA Bilaterally. No: SOB, Tachypnea, Wheezes Gastrointestinal: Yes: Normal Bowel Sounds, Soft ...Rectal Exam: Yes: Deferred Renal/: Yes: WNL Breast(s): Yes: WNL Musculoskeletal: Yes: WNL Extremities: Yes: WNL, Other (lower extemities with multiple lesions / abrassions 2/2 to falls in multiple stages of healing). No: Cool, Deformity Edema: No Peripheral Pulses WNL: Yes Integumentary: Yes: Bruising (lower extremities), Venous Stasis Changes (lower extremities). No: Jaundice Wound/Incision: Yes: Clean/Dry, Open to air Neurological: Yes: Confusion, Pre-Existing Deficit, Unsteady Gait, Weakness ( deconditioned) Psychiatric: Yes: Alert Labs: CBC, BMP 01/14/19 07:00 01/14/19 07:00 Discharge Summary Reason For Visit: EDEMA OF LOWER EXTREMITY/ORTHOPNEA/NEW Current Active Problems Leg edema (Acute) New onset of congestive heart failure (Acute) Orthopnea (Acute) Condition: Stable - Instructions Referrals: Neli Edwards [Primary Care Provider] - Disposition: NURSING HOME FACILITY - Home Medications Comprehensive Discharge Medication List: Ambulatory Orders Acetaminophen 650 mg PO ASDIR 01/04/19 Aspirin 81 mg PO DAILY 01/04/19 Cyanocobalamin (Vitamin B-12) [Vitamin B-12] 1,000 mcg PO DAILY 01/04/19 Magnesium Hydroxide [Milk of Magnesia] 400 mg PO ASDIR 01/04/19 Vitamin D3 50,000 unit PO WEEKLY 01/04/19 digoxin 0.125 mg PO daily metoprolol succinate ( toprol XL) 100 mg PO BID lasix 40 mg PO daily [facility]VI PO daily folate 1 mg PO daily thiamine 100 PO mg daily namenda 5 mg BID for 7 days then increase to 10 q am and 5 q pm for 7 days then 10 mg BID consider adding exelon 1.5 mg PO BID and titrating up as tolerated
[2019-01-16] MEDS: ASPIRIN COATED 81 MG TABLET.EC PO SCH (10:17)
[2019-01-16] MEDS: FUROSEMIDE 40 MG TABLET (FP) PO SCH (10:17)
[2019-01-16] MEDS: FOLIC ACID 1 MG TABLET (FP) PO SCH (10:17)
[2019-01-16] MEDS: MEMANTINE HCL 5 MG TABLET (UD) PO SCH ×2 (10:18→21:29)
[2019-01-16] MEDS: MULTIVITAMINS (DAILY MVI) TABLET (FP) PO SCH (10:18)
[2019-01-16] MEDS: DIGOXIN 0.125 MG TABLET (FP) PO SCH (10:21)
--- NOTE | 2019-01-16 10:35 | EKG ---
Test Reason : Blood Pressure : / mmHG Vent. Rate : 098 BPM Atrial Rate : 138 BPM P-R Int : 000 ms QRS Dur : 068 ms QT Int : 340 ms P-R-T Axes : 000 -06 -35 degrees QTc Int : 434 ms ATRIAL FIBRILLATION WITH PREMATURE VENTRICULAR OR ABERRANTLY CONDUCTED COMPLEXES T WAVE ABNORMALITY, CONSIDER ANTEROLATERAL ISCHEMIA ABNORMAL ECG WHEN COMPARED WITH ECG OF 05-JAN-2019 09:07, NO SIGNIFICANT CHANGE WAS FOUND Confirmed by NIKHIL REDMAN, KEVEN ([id number]) on 01/16/2019 10:35:07 AM Referred By: Darell HUYNH Confirmed By:KEVEN TEJEDA MD
[2019-01-16 10:53] LABS: BASO % 1.3 % (0-2.0); EOS % 1.8 % (0-4.5); HEMATOCRIT 39.1 % (35.4-49); HEMOGLOBIN 12.8 GM/dL (11.7-16.9); LYMPH % 16.7 % (8-40); MCH 31.9 pg (25.7-33.7); MCHC 32.7 g/dl (32.0-35.9); MEAN CELL VOLUME 97.6 fl (80-96); MEAN PLT VOLUME 7.9 fl (7.5-11.1); MONO % 8.9 % (3.8-10.2); NEUT % 71.3 % (42.8-82.8); PLATELET COUNT 208 K/MM3 (134-434); RBC 4.01 M/mm3 (4.00-5.60); RDW 16.7 % (11.9-15.9); WHITE BLOOD COUNT 5.1 K/mm3 (4.0-10.0)
[2019-01-16 11:20] LABS: ANION GAP 7 MMOL/L (8-16); BLOOD UREA NITROGEN 18 mg/dL (7-18); CALCIUM 8.9 mg/dL (8.5-10.1); CHLORIDE 103 mmol/L (98-107); CO2 30 mmol/L (21-32); CREATININE 0.8 mg/dL (0.55-1.3); GLUCOSE,RANDOM 94 mg/dL (74-106); POTASSIUM 4.2 mmol/L (3.5-5.1); SODIUM 140 mmol/L (136-145)
--- NOTE | 2019-01-16 12:27 | PN ---
Progress Note, Physician Chief Complaint: sob History of Present Illness: agitated. michelle vest on. wants to get out of bed. fell when got OOB yest. denies sob, cp, palpit, syncope - Current Medication List Current Medications: Active Medications Acetaminophen (Tylenol -) 650 mg PO Q6H PRN PRN Reason: PAIN LEVEL 1-5 Aspirin (Ecotrin -) 81 mg PO DAILY [facility] Last Admin: 01/16/19 10:17 Dose: 81 mg Digoxin (Lanoxin -) 0.125 mg PO DAILY [facility] Last Admin: 01/16/19 10:21 Dose: 0.125 mg Folic Acid (Folic Acid -) 1 mg PO DAILY [facility] Last Admin: 01/16/19 10:17 Dose: 1 mg Furosemide (Lasix -) 40 mg PO DAILY [facility] Last Admin: 01/16/19 10:17 Dose: 40 mg Haloperidol (Haldol Injection (Fast Acting) -) 3 mg IM Q4H PRN PRN Reason: AGITATION Memantine (Namenda -) 5 mg PO BID [facility] Last Admin: 01/16/19 10:18 Dose: 5 mg Metoprolol Succinate (Toprol Xl -) 100 mg PO BID [facility] Last Admin: 01/16/19 10:21 Dose: 100 mg Multivitamins/Minerals/Vitamin C (Tab-A-Vit -) 1 tab PO DAILY [facility] Last Admin: 01/16/19 10:18 Dose: 1 tab - Objective Vital Signs: Vital Signs Temperature 97.4 F L 01/16/19 10:00 Pulse Rate 94 H 01/16/19 10:21 Respiratory Rate 18 01/16/19 10:00 Blood Pressure 105/80 01/16/19 10:00 O2 Sat by Pulse Oximetry (%) 93 L 01/16/19 09:00 Constitutional: Yes: Well Nourished, No Distress, Calm Cardiovascular: Yes: Pulse Irregular, S1, S2. No: Gallop, Murmur Respiratory: Yes: Regular, CTA Bilaterally, Diminished (slightly at L base). No : Accessory Muscle Use Extremities: No: Cold Edema: No Neurological: Yes: Alert. No: Seizure Psychiatric: No: Agitated Labs: CBC, BMP 01/16/19 10:05 01/16/19 10:05 INR, PTT INR 1.26 (0.83-1.09) H 01/04/19 13:46 Assessment/Plan cxr 01/11: bilateral small pleural effusions, no vascular redistrib pattern ecg: afib rvr, nonspec tw changes, no st changes echo 12/2018: sev dec lvef, global hk, nl rv, lae, mild mr, mild tr, rvsp 30-40 tele: a/p: 83 m hx pafib, chf, cad (?details), here with sob. sob, acute systolic chf: -echo here with severely reduced lvef, no priors to compare -BNP 16K (no priors) -receiving iv lasix 40 bid. -01/09: wt coming down slowly (6 lbs since admit). no JVD. bun trending up, creat stable. cxr unchanged (mild changes). continue same lasix today--if appears similarly euvolemic and bun/creat rising tomorrow, would transition to oral lasix. - 01/10-: wt came down nicely. CXR small effusions persist. appears euvolemic clinically, no SOB. renal fxn stable. continue lasix 40 mg PO daily -soft BPs. prioritizing BB for syst chf and afib rate control. deferring ANIKET -per Dr. Bolanos: d/w'd dr goodwin, who feels his dementia is likely significant with limited quality of life and agitation. d/w'd dr riley who knows pt from [facility] outpt setting--only recently met him, difficult to expound on extent of his dementia and/or reduced life expectancy as a result. suspect he will not be a good candidate for primary prevention ICD, but plan to defer this to outpatient assessment and discussion with pt/son based on his functional status/mental status/qual of life after hospital discharge. d/w'd dr riley the plan as well. pafib: -pt reports that 10/2018 had 2 falls and syncope and admitted in [place] and had loop recorder placed. he then went to snf and recently [facility]. He is still unsteady on his feet, thus given his fall hx and continued poor ambulation, risk of ac>benefits at this time, cont asa. -HRs rapid--improved with increased metoprolol, addition of digoxin, and tx of HF -HRs remain controlled at lenient rate control target (<110 resting). dig level climbing 0.3 to 1.0--d/c dig (hi risk toxicity). suspect HR will be controlled with high dose metoprolol 100 bid as doing VTach: -runs of NSVT on tele, up to 8-10 beats -K > 4, Mag > 2 -cont BB as doing -no signif ventric arrhythmias on tele since then cad: -past history details unknown, no signs acs here -cont asa -outpt cardio f/u dementia, agitation/sundowning here: - manage per primary OK FOR D/C FROM [facility] P.O.V.
[2019-01-16 17:16] VITALS: BMI 18.7
--- NOTE | 2019-01-16 20:37 | PN ---
Progress Note (short form) - Note Progress Note: sitting in chair in the [address] easily agitated Vital Signs Period Temp Pulse Resp BP Sys/Campbell Pulse Ox Last 24 Hr 97.2 F-97.9 F 88-103 18-18 98-120/57-80 93-94 neck supple heart S1/S2 lungs dull left base and rales at both basses / rhonchi abd soft non tender ext no edema / no calf tenderness / new laceration to left knee no deformities multiple scab/ injuries in multiple stages of healing to both lower extremities CBC, BMP 01/16/19 10:05 01/16/19 10:05 CBC, BMP 01/14/19 07:00 01/14/19 07:00 CBC, BMP 01/11/19 05:30 01/11/19 05:30 CXR: mild chf EKG: afib rvr, nonspec tw changes, no st changes tele: afib, rvr 120s ECHO: 12/2018: sev dec lvef, global hk, nl rv, lae, mild mr, mild tr, rvsp 30-40 Microbiology 01/04/19 18:40 Urine - Urine Clean Catch Urine Culture - Final Active Medications Acetaminophen (Tylenol -) 650 mg PO Q6H PRN PRN Reason: PAIN LEVEL 1-5 Aspirin (Ecotrin -) 81 mg PO DAILY [facility] Digoxin (Lanoxin -) 0.125 mg PO DAILY [facility] Last Admin: 01/15/19 13:04 Dose: 0.125 mg Folic Acid (Folic Acid -) 1 mg PO DAILY [facility] Last Admin: 01/15/19 13:04 Dose: 1 mg Furosemide (Lasix -) 40 mg PO DAILY [facility] Last Admin: 01/15/19 13:05 Dose: 40 mg Haloperidol (Haldol Injection (Fast Acting) -) 3 mg IM Q4H PRN PRN Reason: AGITATION Metoprolol Succinate (Toprol Xl -) 100 mg PO BID [facility] Last Admin: 01/15/19 13:04 Dose: 100 mg Multivitamins/Minerals/Vitamin C (Tab-A-Vit -) 1 tab PO DAILY [facility] Last Admin: 01/15/19 13:04 Dose: 1 tab Potassium Chloride (K-Dur -) 40 meq PO DAILY [facility] Last Admin: 01/15/19 13:05 Dose: 40 meq Assmt / plan 83 y/o male with hx of PAF / CHF / CAD / admitted from [address] [place] [address] with progressive inc of SOB. Found to be in HF, and hypotension. echo 12/2018: sev dec lvef, global hk, nl rv, lae, mild mr, mild tr, rvsp 30-40 #s/p fall today - mechanical no injury found #HFrEF per echo above improving with lasix but treatment limited by low BP daily weights / labs lasix changed to PO to BID -- monitor bp #PAF hx of recurrent falls --- agree with cardio increased risk of A/C outweigh the benefits. episodes of SVT ?? contniue to monitor tele and maximize lytes keep K >4 and Mag >2 continue ASA Low Bp limits medical management --agree with dig for rate control BB increased for rate control no further arrhythmia on telemetry -- now off telemetry # CAD unkown hx # Dementia periods of agitation / sundowning started on namenda 5 mg BID haldol PRN disposition to go to [facility] for STR
[2019-01-17] MEDS: MULTIVITAMINS (DAILY MVI) TABLET (FP) PO SCH (10:20)
[2019-01-17] MEDS: FUROSEMIDE 40 MG TABLET (FP) PO SCH (10:20)
[2019-01-17] MEDS: ASPIRIN COATED 81 MG TABLET.EC PO SCH (10:20)
[2019-01-17] MEDS: MEMANTINE HCL 5 MG TABLET (UD) PO SCH ×2 (10:20→21:30)
[2019-01-17] MEDS: FOLIC ACID 1 MG TABLET (FP) PO SCH (10:21)
--- NOTE | 2019-01-17 11:33 | PN ---
Progress Note (short form) - Note Progress Note: s: no cp, sob, palps Current Medications Acetaminophen (Tylenol -) 650 mg PO Q6H PRN PRN Reason: PAIN LEVEL 1-5 Aspirin (Ecotrin -) 81 mg PO DAILY [facility] Last Admin: 01/17/19 10:20 Dose: 81 mg Folic Acid (Folic Acid -) 1 mg PO DAILY [facility] Last Admin: 01/17/19 10:21 Dose: 1 mg Furosemide (Lasix -) 40 mg PO DAILY [facility] Last Admin: 01/17/19 10:20 Dose: 40 mg Haloperidol (Haldol Injection (Fast Acting) -) 3 mg IM Q4H PRN PRN Reason: AGITATION Memantine (Namenda -) 5 mg PO BID [facility] Last Admin: 01/17/19 10:20 Dose: 5 mg Metoprolol Succinate (Toprol Xl -) 100 mg PO BID [facility] Last Admin: 01/17/19 10:21 Dose: 100 mg Multivitamins/Minerals/Vitamin C (Tab-A-Vit -) 1 tab PO DAILY [facility] Last Admin: 01/17/19 10:20 Dose: 1 tab Vital Signs Period Temp Pulse Resp BP Sys/Campbell Pulse Ox Last 24 Hr 97.2 F-97.5 F 87-100 18-20 98-120/57-83 94 Constitutional: Yes: Well Nourished, No Distress, Calm Cardiovascular: Yes: Pulse Irregular, S1, S2. No: Gallop, Murmur Respiratory: Yes: Regular, CTA Bilaterally, Diminished (slightly at L base). No : Accessory Muscle Use Extremities: No: Cold Edema: No Neurological: Yes: Alert. No: Seizure Psychiatric: No: Agitated Assessment/Plan cxr 01/11: bilateral small pleural effusions, no vascular redistrib pattern ecg: afib rvr, nonspec tw changes, no st changes echo 12/2018: sev dec lvef, global hk, nl rv, lae, mild mr, mild tr, rvsp 30-40 a/p: 83 m hx pafib, chf, cad (?details), here with sob. sob, acute systolic chf: -echo here with severely reduced lvef, no priors to compare -BNP 16K (no priors) -receiving iv lasix 40 bid. -01/09: wt coming down slowly (6 lbs since admit). no JVD. bun trending up, creat stable. cxr unchanged (mild changes). continue same lasix today--if appears similarly euvolemic and bun/creat rising tomorrow, would transition to oral lasix. - 01/10-: euvolemic, stable weight and cr. continue lasix 40 mg PO daily -soft BPs. prioritizing BB for syst chf and afib rate control. deferring ANIKET -per Dr. Bolanos: d/w'd dr goodwin, who feels his dementia is likely significant with limited quality of life and agitation. d/w'd dr riley who knows pt from [facility] outpt setting--only recently met him, difficult to expound on extent of his dementia and/or reduced life expectancy as a result. suspect he will not be a good candidate for primary prevention ICD, but plan to defer this to outpatient assessment and discussion with pt/son based on his functional status/mental status/qual of life after hospital discharge. d/w'd dr riley the plan as well. pafib: -pt reports that 10/2018 had 2 falls and syncope and admitted in [place] and had loop recorder placed. he then went to [facility] and recently [facility]. He is still unsteady on his feet, thus given his fall hx and continued poor ambulation, risk of ac>benefits at this time, cont asa. -HRs rapid--improved with increased metoprolol, addition of digoxin, and tx of HF -HRs remain controlled at lenient rate control target (<110 resting). dig level climbing 0.3 to 1.0--d/c dig (hi risk toxicity). suspect HR will be controlled with high dose metoprolol 100 bid as doing VTach: -runs of NSVT on tele, up to 8-10 beats -K > 4, Mag > 2 -cont BB as doing -no signif ventric arrhythmias on tele since then cad: -past history details unknown, no signs acs here -cont asa -outpt cardio f/u dementia, agitation/sundowning here: - manage per primary OK FOR D/C FROM [facility] P[facility].
--- NOTE | 2019-01-17 14:41 | HOSP ---
Physical Examination Vital Signs: Vital Signs Temperature 97.4 F L 01/17/19 13:59 Pulse Rate 103 H 01/17/19 13:59 Respiratory Rate 20 01/17/19 13:59 Blood Pressure 105/83 01/17/19 13:59 O2 Sat by Pulse Oximetry (%) 94 L 01/16/19 21:00 Labs: CBC, BMP 01/16/19 10:05 01/16/19 10:05 Hospitalist Encounter Assessment: the production technologist team was called to evaluate the patient who fell (for the second time in 2 days) -this was an unwitnessed fall just as the fall that happened two days ago. head CT/plevis/femur XRAYS all done at that time, with no evidence of acute pathology. this is a patient of dr powers- she was contacted, and she will be putting in orders if she wishes to have any. vital signs all stable PE: gen: confused (however at his baseline) lungs: CTA B/L cardio: irregular, s1 s2 neuro: 5/5 strength B/L sensation intact B/L plan: defer to dr goodwin since patient just had post-fall protocol imaging and assessment done 2 days ago and she will make recommendations Visit type - Emergency Visit Emergency Visit: Yes ED Registration Date: 01/04/19 Care time: The patient presented to the Emergency Department on the above date and was hospitalized for further evaluation of their emergent condition. - New Patient This patient is new to me today: Yes Date on this admission: 01/17/19 - Critical Care Critical Care patient: No
--- NOTE | 2019-01-17 16:12 | PN ---
Progress Note (short form) - Note Progress Note: sitting in bed confused / michelle in place easily agitated Vital Signs Period Temp Pulse Resp BP Sys/Campbell Pulse Ox Last 24 Hr 97.2 F-97.9 F 88-103 18-18 98-120/57-80 93-94 neck supple heart S1/S2 lungs dull left base and rales at both basses / rhonchi abd soft non tender ext no edema / no calf tenderness / new laceration to left knee no deformities multiple scab/ injuries in multiple stages of healing to both lower extremities CBC, BMP 01/16/19 10:05 01/16/19 10:05 CBC, BMP 01/14/19 07:00 01/14/19 07:00 CBC, BMP 01/11/19 05:30 01/11/19 05:30 CXR: mild chf EKG: afib rvr, nonspec tw changes, no st changes tele: afib, rvr 120s ECHO: 12/2018: sev dec lvef, global hk, nl rv, lae, mild mr, mild tr, rvsp 30-40 Microbiology 01/04/19 18:40 Urine - Urine Clean Catch Urine Culture - Final Active Medications Acetaminophen (Tylenol -) 650 mg PO Q6H PRN PRN Reason: PAIN LEVEL 1-5 Aspirin (Ecotrin -) 81 mg PO DAILY [facility] Last Admin: 01/17/19 10:20 Dose: 81 mg Folic Acid (Folic Acid -) 1 mg PO DAILY [facility] Last Admin: 01/17/19 10:21 Dose: 1 mg Furosemide (Lasix -) 40 mg PO DAILY [facility] Last Admin: 01/17/19 10:20 Dose: 40 mg Haloperidol (Haldol Injection (Fast Acting) -) 3 mg IM Q4H PRN PRN Reason: AGITATION Memantine (Namenda -) 5 mg PO BID [facility] Last Admin: 01/17/19 10:20 Dose: 5 mg Metoprolol Succinate (Toprol Xl -) 100 mg PO BID [facility] Last Admin: 01/17/19 10:21 Dose: 100 mg Multivitamins/Minerals/Vitamin C (Tab-A-Vit -) 1 tab PO DAILY [facility] Last Admin: 01/17/19 10:20 Dose: 1 tab Assmt / plan 83 y/o male with hx of PAF / CHF / CAD / [facility] with [facility] of SOB. Found to be in HF, and hypotension. echo 12/2018: sev dec lvef, global hk, nl rv, lae, mild mr, mild tr, rvsp 30-40 #s/p fall over weekend - mechanical no injury found films reviewed no deformities #HFrEF per echo above improving with lasix but treatment limited by low BP daily weights / labs lasix changed to PO to BID -- monitor bp #PAF hx of recurrent falls --- agree with cardio increased risk of A/C outweigh the benefits. episodes of SVT ?? contniue to monitor tele and maximize lytes keep K >4 and Mag >2 continue ASA Low Bp limits medical management --agree with dig for rate control BB increased for rate control no further arrhythmia on telemetry -- now off telemetry # CAD unkown hx # Dementia periods of agitation / sundowning started on namenda 5 mg BID haldol PRN disposition to go to [facility] Problem List - Problems (1) New onset of congestive heart failure Code(s): I50.9 - HEART FAILURE, UNSPECIFIED (2) Atrial fibrillation with rapid ventricular response Code(s): I48.91 - UNSPECIFIED ATRIAL FIBRILLATION (3) Dementia Code(s): F03.90 - UNSPECIFIED DEMENTIA WITHOUT BEHAVIORAL DISTURBANCE (4) Unsteady gait Code(s): R26.81 - UNSTEADINESS ON FEET (5) Leg edema Code(s): R60.0 - LOCALIZED EDEMA (6) Orthopnea Code(s): R06.01 - ORTHOPNEA
--- NOTE | 2019-01-17 19:02 | CON.PSY ---
Psychiatry Consult Chief Complaint: 83 year old male with Dementia, seen for psych eval for Behavioral disturbances. patient waiting for placement and is in a michelle. Symptoms: reports: Memory Impairment - Previous Psychiatric Treatment Outpatient: None Inpatient: None - Previous Substance Abuse Treatment Outpatient: None Inpatient: None - Current Medications Current Medications: Active Medications Acetaminophen (Tylenol -) 650 mg PO Q6H PRN PRN Reason: PAIN LEVEL 1-5 Aspirin (Ecotrin -) 81 mg PO DAILY [facility] Last Admin: 01/17/19 10:20 Dose: 81 mg Folic Acid (Folic Acid -) 1 mg PO DAILY [facility] Last Admin: 01/17/19 10:21 Dose: 1 mg Furosemide (Lasix -) 40 mg PO DAILY [facility] Last Admin: 01/17/19 10:20 Dose: 40 mg Memantine (Namenda -) 5 mg PO BID [facility] Last Admin: 01/17/19 10:20 Dose: 5 mg Metoprolol Succinate (Toprol Xl -) 100 mg PO BID [facility] Last Admin: 01/17/19 10:21 Dose: 100 mg Multivitamins/Minerals/Vitamin C (Tab-A-Vit -) 1 tab PO DAILY [facility] Last Admin: 01/17/19 10:20 Dose: 1 tab - Allergies Allergies: Allergies Allergy/AdvReac Type Severity Reaction Status Date / Time No Known Allergies Allergy Verified 01/04/19 11:30 - Current Living Status Usual Living Arrangement: With Spouse - Current Mental Status Evaluation Appearance: Disheveled Attitude: Guarded - Affect Affect: Constrictive Appropriateness: Appropriate to Content - Mood Mood: Irritable - Speech/Language Expressive: Delayed - Psychomotor Activity Psychomotor Activity: Hyperactive - Thought Process Thought Process: Circumstantial - Thought Content Hallucinations: Absent Delusions: Absent - Self Perception Self Perception: No Impairment - Cognition Attention: Alert Memory, Immediate Recall: Impaired Memory, Short Term: 1/3 Memory, Remote with Promptin/3 - Concentration Serial Sevens Intact: No Simple Calculations Intact: No - Abstraction Proverb Interpretation: Impaired Judgement: Minimally Impaired - Insight Insight: Impaired - Impulse Control Impulse Control: Minimally Impaired - Suicidal Ideation Suicidal Ideation: No - Homicidal Ideation Homicidal Ideation: No Assessment/Plan 1) Zyprexa2.5mg po hs.
[2019-01-17] MEDS ORDERED: OLANZapine 2.5 MG TABLET PO SCH (22:00)
[2019-01-18 07:09] LABS: BASO % 0.9 % (0-2.0); EOS % 1.5 % (0-4.5); HEMATOCRIT 38.4 % (35.4-49); HEMOGLOBIN 12.9 GM/dL (11.7-16.9); LYMPH % 20.2 % (8-40); MCH 32.4 pg (25.7-33.7); MCHC 33.5 g/dl (32.0-35.9); MEAN CELL VOLUME 96.9 fl (80-96); MONO % 9.1 % (3.8-10.2); NEUT % 68.3 % (42.8-82.8); PLATELET COUNT 208 K/MM3 (134-434); RBC 3.97 M/mm3 (4.00-5.60); RDW 16.5 % (11.9-15.9); WHITE BLOOD COUNT 5.6 K/mm3 (4.0-10.0)
[2019-01-18 07:45] LABS: ANION GAP 7 MMOL/L (8-16); BLOOD UREA NITROGEN 18 mg/dL (7-18); CALCIUM 8.6 mg/dL (8.5-10.1); CHLORIDE 103 mmol/L (98-107); CO2 32 mmol/L (21-32); CREATININE 0.8 mg/dL (0.55-1.3); GLUCOSE,RANDOM 73 mg/dL (74-106); POTASSIUM 3.6 mmol/L (3.5-5.1); SODIUM 141 mmol/L (136-145)
[2019-01-18] MEDS: MEMANTINE HCL 5 MG TABLET (UD) PO SCH (09:59)
[2019-01-18] MEDS: FUROSEMIDE 40 MG TABLET (FP) PO SCH ×2 (09:59→10:01)
[2019-01-18] MEDS: MULTIVITAMINS (DAILY MVI) TABLET (FP) PO SCH (09:59)
[2019-01-18] MEDS: FOLIC ACID 1 MG TABLET (FP) PO SCH (09:59)
[2019-01-18] MEDS: ASPIRIN COATED 81 MG TABLET.EC PO SCH (09:59)
[2019-01-18 10:02] VITALS: BP 83/54; PULSE 90; TEMP 97.3
--- NOTE | 2019-01-18 11:58 | PN ---
Progress Note (short form) - Note Progress Note: s: no cp, sob, palps Current Medications Acetaminophen (Tylenol -) 650 mg PO Q6H PRN PRN Reason: PAIN LEVEL 1-5 Aspirin (Ecotrin -) 81 mg PO DAILY [facility] Last Admin: 01/18/19 09:59 Dose: 81 mg Folic Acid (Folic Acid -) 1 mg PO DAILY [facility] Last Admin: 01/18/19 09:59 Dose: 1 mg Furosemide (Lasix -) 40 mg PO DAILY [facility] Last Admin: 01/18/19 10:01 Dose: Not Given Memantine (Namenda -) 5 mg PO BID [facility] Last Admin: 01/18/19 09:59 Dose: 5 mg Metoprolol Succinate (Toprol Xl -) 100 mg PO BID [facility] Last Admin: 01/18/19 10:00 Dose: Not Given Multivitamins/Minerals/Vitamin C (Tab-A-Vit -) 1 tab PO DAILY [facility] Last Admin: 01/18/19 09:59 Dose: 1 tab Olanzapine (Zyprexa -) 2.5 mg PO HS [facility] Last Admin: 01/17/19 21:30 Dose: 2.5 mg Vital Signs Period Temp Pulse Resp BP Sys/Campbell Pulse Ox Last 24 Hr 97.3 F-98.1 F 72-103 18-22 83-132/54-87 96 Constitutional: Yes: Well Nourished, No Distress, Calm Cardiovascular: Yes: Pulse Irregular, S1, S2. No: Gallop, Murmur Respiratory: Yes: Regular, CTA Bilaterally, Diminished (slightly at L base). No : Accessory Muscle Use Extremities: No: Cold Edema: No Neurological: Yes: Alert. No: Seizure Psychiatric: No: Agitated Assessment/Plan cxr 01/11: bilateral small pleural effusions, no vascular redistrib pattern ecg: afib rvr, nonspec tw changes, no st changes echo 12/2018: sev dec lvef, global hk, nl rv, lae, mild mr, mild tr, rvsp 30-40 a/p: 83 m hx pafib, chf, cad (?details), here with sob. sob, acute systolic chf: -echo here with severely reduced lvef, no priors to compare -BNP 16K (no priors) -receiving iv lasix 40 bid. -01/09: wt coming down slowly (6 lbs since admit). no JVD. bun trending up, creat stable. cxr unchanged (mild changes). continue same lasix today--if appears similarly euvolemic and bun/creat rising tomorrow, would transition to oral lasix. - 01/10-20: euvolemic, stable weight and cr. continue lasix 40 mg PO daily -soft BPs. prioritizing BB for syst chf and afib rate control. deferring ANIKET -per Dr. Bolanos: d/w'd dr goodwin, who feels his dementia is likely significant with limited quality of life and agitation. d/w'd dr riley who knows pt from [facility] outpt setting--only recently met him, difficult to expound on extent of his dementia and/or reduced life expectancy as a result. suspect he will not be a good candidate for primary prevention ICD, but plan to defer this to outpatient assessment and discussion with pt/son based on his functional status/mental status/qual of life after hospital discharge. d/w'd dr riley the plan as well. pafib: -pt reports that 10/2018 had 2 falls and syncope and admitted in [place] and had loop recorder placed. he then went to sn[facility] and recently correction. He is still unsteady on his feet, thus given his fall hx and continued poor ambulation, risk of ac>benefits at this time, cont asa. -HRs rapid--improved with increased metoprolol, addition of digoxin, and tx of HF -HRs remain controlled at lenient rate control target (<110 resting). dig level climbing 0.3 to 1.0--d/c dig (hi risk toxicity) -low BPs in last 48 hours, HR controlled - decrease metoprolol to 75 mg BID VTach: -runs of NSVT on tele, up to 8-10 beats -K > 4, Mag > 2 -cont BB as doing -no signif ventric arrhythmias on tele since then cad: -past history details unknown, no signs acs here -cont asa -outpt cardio f/u dementia, agitation/sundowning here: - manage per primary OK FOR D/C FROM [facility] P[facility].
--- NOTE | 2019-01-18 12:28 | PN ---
Progress Note (short form) - Note Progress Note: sitting in bed confused / michelle in place easily agitated Vital Signs Period Temp Pulse Resp BP Sys/Campbell Pulse Ox Last 24 Hr 97.2 F-97.9 F 88-103 18-18 98-120/57-80 93-94 neck supple heart S1/S2 lungs dull left base and rales at both basses / rhonchi abd soft non tender ext no edema / no calf tenderness / new laceration to left knee no deformities multiple scab/ injuries in multiple stages of healing to both lower extremities CBC, BMP 01/16/19 10:05 01/16/19 10:05 CBC, BMP 01/14/19 07:00 01/14/19 07:00 CBC, BMP 01/11/19 05:30 01/11/19 05:30 CXR: mild chf EKG: afib rvr, nonspec tw changes, no st changes tele: afib, rvr 120s ECHO: 12/2018: sev dec lvef, global hk, nl rv, lae, mild mr, mild tr, rvsp 30-40 Microbiology 01/04/19 18:40 Urine - Urine Clean Catch Urine Culture - Final Active Medications Acetaminophen (Tylenol -) 650 mg PO Q6H PRN PRN Reason: PAIN LEVEL 1-5 Aspirin (Ecotrin -) 81 mg PO DAILY [facility] Last Admin: 01/17/19 10:20 Dose: 81 mg Folic Acid (Folic Acid -) 1 mg PO DAILY [facility] Last Admin: 01/17/19 10:21 Dose: 1 mg Furosemide (Lasix -) 40 mg PO DAILY [facility] Last Admin: 01/17/19 10:20 Dose: 40 mg Haloperidol (Haldol Injection (Fast Acting) -) 3 mg IM Q4H PRN PRN Reason: AGITATION Memantine (Namenda -) 5 mg PO BID [facility] Last Admin: 01/17/19 10:20 Dose: 5 mg Metoprolol Succinate (Toprol Xl -) 100 mg PO BID [facility] Last Admin: 01/17/19 10:21 Dose: 100 mg Multivitamins/Minerals/Vitamin C (Tab-A-Vit -) 1 tab PO DAILY [facility] Last Admin: 01/17/19 10:20 Dose: 1 tab Assmt / plan 83 y/o male with hx of PAF / CHF / CAD / admitted from [facility] with progressive inc of SOB. Found to be in HF, and hypotension. echo 12/2018: sev dec lvef, global hk, nl rv, lae, mild mr, mild tr, rvsp 30-40 #s/p fall over weekend - mechanical no injury found films reviewed no deformities #HFrEF per echo above improving with lasix but treatment limited by low BP daily weights / labs lasix daily -- monitor bp #PAF hx of recurrent falls --- agree with cardio increased risk of A/C outweigh the benefits. keep K >4 and Mag >2 continue ASA Low Bp limits medical management --BB + dig for rate control BB decreased to 75 mg / BID # CAD unkown hx # Dementia periods of agitation / sundowning started on namenda 5 mg BID will need tyo inc to therapeutic dose of 10 BID haldol PRN disposition to return to [facility] Problem List - Problems (1) New onset of congestive heart failure Code(s): I50.9 - HEART FAILURE, UNSPECIFIED (2) Atrial fibrillation with rapid ventricular response Code(s): I48.91 - UNSPECIFIED ATRIAL FIBRILLATION (3) Dementia Code(s): F03.90 - UNSPECIFIED DEMENTIA WITHOUT BEHAVIORAL DISTURBANCE (4) Unsteady gait Code(s): R26.81 - UNSTEADINESS ON FEET (5) Leg edema Code(s): R60.0 - LOCALIZED EDEMA (6) Orthopnea Code(s): R06.01 - ORTHOPNEA
--- NOTE | 2019-01-18 12:31 | DS ---
Physical Examination Vital Signs: Vital Signs Temperature 97.3 F L 01/18/19 10:00 Pulse Rate 90 01/18/19 10:00 Respiratory Rate 18 01/18/19 10:00 Blood Pressure 83/54 L 01/18/19 10:00 O2 Sat by Pulse Oximetry (%) 96 01/17/19 21:00 Findings/Remarks: Assmt / plan 83 y/o male with hx of PAF / CHF / CAD / admitted from [address] [place] [address] with progressive inc of SOB. Found to be in HF, and hypotension. echo 12/2018: sev dec lvef, global hk, nl rv, lae, mild mr, mild tr, rvsp 30-40 #s/p fall over weekend - mechanical no injury found films reviewed no deformities #HFrEF per echo above improving with lasix but treatment limited by low BP daily weights / labs lasix daily -- monitor bp #PAF hx of recurrent falls --- agree with cardio increased risk of A/C outweigh the benefits. keep K >4 and Mag >2 continue ASA Low Bp limits medical management --BB + dig for rate control BB decreased to 75 mg / BID # CAD unkown hx # Dementia periods of agitation / sundowning started on namenda 5 mg BID will need tyo inc to therapeutic dose of 10 BID haldol PRN disposition to return to [facility] Constitutional: Yes: Well Nourished, No Distress, Calm, Thin Eyes: Yes: Conjunctiva Clear, EOM Intact HENT: Yes: Atraumatic, Normocephalic Neck: Yes: Supple, Trachea Midline Cardiovascular: Yes: Regular Rate and Rhythm Respiratory: Yes: Regular, CTA Bilaterally Gastrointestinal: Yes: Normal Bowel Sounds, Soft ...Rectal Exam: Yes: Deferred Renal/: Yes: WNL Breast(s): Yes: WNL Musculoskeletal: Yes: WNL Extremities: Yes: WNL Edema: No Peripheral Pulses WNL: Yes Integumentary: Yes: WNL Wound/Incision: Yes: Clean/Dry Neurological: Yes: Alert, Confusion, Pre-Existing Deficit ...Motor Strength: WNL Psychiatric: Yes: Alert Labs: CBC, BMP 01/18/19 06:00 01/18/19 06:00 Discharge Summary Reason For Visit: EDEMA OF LOWER EXTREMITY/ORTHOPNEA/NEW Current Active Problems Atrial fibrillation with rapid ventricular response (Acute) Dementia (Acute) Leg edema (Acute) New onset of congestive heart failure (Acute) Orthopnea (Acute) Unsteady gait (Acute) Condition: Fair - Instructions Referrals: Neli Edwards [Primary Care Provider] - Disposition: HOME - Home Medications Comprehensive Discharge Medication List: Ambulatory Orders Acetaminophen 650 mg PO ASDIR 01/04/19 Aspirin 81 mg PO DAILY 01/04/19 Cyanocobalamin (Vitamin B-12) [Vitamin B-12] 1,000 mcg PO DAILY 01/04/19 Magnesium Hydroxide [Milk of Magnesia] 400 mg PO ASDIR 01/04/19 Vitamin D3 50,000 unit PO WEEKLY 01/04/19 Acetaminophen [Tylenol .Regular Strength -] 650 mg PO Q6H PRN tablet 01/16/19 Aspirin Coated [Ecotrin -] 81 mg PO DAILY tablet.ec 01/16/19 Digoxin [Lanoxin -] 0.125 mg PO DAILY 30 Days #30 tablet 01/16/19 Folic Acid - 1 mg PO DAILY 30 Days #30 tablet 01/16/19 Furosemide [Lasix -] 40 mg PO DAILY 30 Days #30 tablet 01/16/19 Memantine HCl [Namenda -] 5 mg PO BID increase to 10 q am and 5 mg q pm for 7 days inc to 10 mg BID Metoprolol Succinate [Toprol XL -] 75 mg PO BID 30 Days #60 tab.sr.24h 01/16/19 Multivitamins [Multivit ([facility] Formulary)] 1 tab PO DAILY 30 Days #30 tab
== END 2019-01-18 13:10 | disposition home or self-care (01) | DRG 291 ==
LOC: JER 11:05 → JERBED 15:25 → J4W 22:05 → J5S 01-14 12:07
PROVIDERS: ADMIT Family Medicine; ATTEND Family Medicine
DX: I11.0 Hypertensive heart disease with heart failure (principal); I50.21 Acute systolic (congestive) heart failure; F05 Delirium due to known physiological condition; I47.2 Ventricular tachycardia; I48.0 Paroxysmal atrial fibrillation; I95.9 Hypotension, unspecified; F03.90 Unspecified dementia, unspecified severity, without behavioral disturbance, psychotic disturbance, mood disturbance, and anxiety; I25.10 Atherosclerotic heart disease of native coronary artery without angina pectoris; I25.2 Old myocardial infarction; Z95.5 Presence of coronary angioplasty implant and graft; R45.1 Restlessness and agitation; R29.6 Repeated falls; E87.6 Hypokalemia; R26.81 Unsteadiness on feet; S81.811A Laceration without foreign body, right lower leg, initial encounter; W01.0XXA Fall on same level from slipping, tripping and stumbling without subsequent striking against object, initial encounter; Y93.89 Activity, other specified; Y92.098 Other place in other non-institutional residence as the place of occurrence of the external cause; Y99.8 Other external cause status
CPT/HCPCS: 36415; 70450-TC; 71045-TC-FY; 73523-TC-FY; 73590-TC-LT-FY; 73590-TC-RT-FY; 80048; 80053; 80061; 80162; 81003; 81015; 82962; 83721; 83735; 83880; 84443; 84484; 85025; 85610; 85730; 86850; 86900; 86901; 87086; 93005; 93010; 93306-TC; 97116-GP; 97161-GP; 99284-25

== ENCOUNTER 2021-03-22 14:21 | Inpatient (IN) | payer OTHER ==
[2021-03-22 17:14] LABS: BASO % 0.5 % (0-2.0); EOS % 0.1 % (0-4.5); HEMOGLOBIN 16.3 GM/dL (11.7-16.9); LYMPH % 11.5 % (8-40); MCH 28.9 pg (25.7-33.7); MCHC 32.6 g/dl (32.0-35.9); MEAN CELL VOLUME 88.8 fl (80-96); MEAN PLT VOLUME 6.8 fl (7.5-11.1); MONO % 6.1 % (3.8-10.2); NEUT % 81.8 % (42.8-82.8); PLATELET COUNT 336 K/MM3 (134-434); RBC 5.63 M/mm3 (4.00-5.60); RDW 19.2 % (11.9-15.9); WHITE BLOOD COUNT 6.5 K/mm3 (4.0-10.0)
[2021-03-22 17:40] LABS: CALCIUM 9.4 mg/dL (8.5-10.1)
[2021-03-22 17:41] LABS: ALBUMIN 3.3 g/dl (3.4-5.0); BLOOD UREA NITROGEN 13.5 mg/dL (7-18)
[2021-03-22 17:44] LABS: CREATININE 1.1 mg/dL (0.55-1.3)
[2021-03-22 17:45] LABS: BILIRUBIN,TOTAL 0.6 mg/dL (0.2-1)
[2021-03-22 19:19] LABS: EPI CELLS 13 /uL (0-25.1); HYALINE CASTS 0 /uL (0-3.1); URINE APPEARANCE TURBID; URINE BACTERIA 1 /uL (0-1359); URINE BILIRUBIN 1+ (NEGATIVE); URINE COLOR ORANGE; URINE GLUCOSE (UA) NEGATIVE (NEGATIVE); URINE KETONE NEGATIVE (NEGATIVE); URINE LEUK ESTERASE 1+ (NEGATIVE); URINE NITRITE NEGATIVE (NEGATIVE); URINE PROTEIN 2+ (NEGATIVE); URINE RBC 36428 /uL (0-23.9); URINE UROBILINOGEN 0.2 mg/dL (0.2-1.0); URINE WBC 108 /uL (0-25.8)
[2021-03-22 21:31] LABS: URINE CRYSTALS 0 /hpf
[2021-03-22] MEDS ORDERED: ERGOCALCIFEROL (VIT D2) 50,000 UNIT (1.25 MG) CAPSULE PO SCH (22:30)
[2021-03-22] MEDS ORDERED: ACETAMINOPHEN 325 MG TABLET (FP) PO PRN (22:32)
[2021-03-22] MEDS ORDERED: SENNOSIDES 8.6MG TABLET (FP) PO PRN (22:35)
[2021-03-22] MEDS ORDERED: MAGNESIUM HYDROX 2400MG/30ML ORAL SUSPENSION 30 ML CUP PO PRN (22:35)
[2021-03-23] MEDS: DEXTROSE 5%-0.45% SALINE 1,000 ML IV SCH ×2 (00:16→14:24)
[2021-03-23 09:07] LABS: BASO % 0.3 % (0-2.0); HEMATOCRIT 44.9 % (35.4-49); HEMOGLOBIN 15.1 GM/dL (11.7-16.9); MCH 29.4 pg (25.7-33.7); MCHC 33.6 g/dl (32.0-35.9); MEAN CELL VOLUME 87.6 fl (80-96); NEUT % 81.7 % (42.8-82.8); PLATELET COUNT 341 K/MM3 (134-434); RBC 5.12 M/mm3 (4.00-5.60); RDW 19.1 % (11.9-15.9); WHITE BLOOD COUNT 8.2 K/mm3 (4.0-10.0)
[2021-03-23] MEDS ORDERED: PT OWN MED DRAWER 7, Y5N ONE ×2 (10:24→22:30)
[2021-03-23] MEDS: DIGOXIN 0.125 MG TABLET (FP) PO SCH (10:31)
[2021-03-23] MEDS: FOLIC ACID 1 MG TABLET (FP) PO SCH (10:31)
[2021-03-23] MEDS: FUROSEMIDE 40 MG TABLET (FP) PO SCH (10:31)
[2021-03-23] MEDS: MULTIVITAMINS THER W-MINERALS COMBO TABLET (FP) PO SCH (10:31)
[2021-03-23] MEDS: PANTOPRAZOLE 40 MG TABLET PO SCH (10:32)
[2021-03-23] MEDS: MEMANTINE HCL 5 MG TABLET (UD) PO SCH ×2 (10:32→22:32)
[2021-03-23] MEDS: CYANOCOBALAMIN 1,000 MCG TABLET (FP) PO SCH (11:33)
[2021-03-23 12:01] LABS: ALBUMIN 2.7 g/dl (3.4-5.0); BLOOD UREA NITROGEN 11.3 mg/dL (7-18); CALCIUM 8.4 mg/dL (8.5-10.1)
[2021-03-23 12:04] LABS: CREATININE 0.9 mg/dL (0.55-1.3)
[2021-03-23 12:06] LABS: BILIRUBIN,TOTAL 0.7 mg/dL (0.2-1); TOT PROT 5.7 g/dl (6.4-8.2)
[2021-03-23] MEDS: DOCUSATE SODIUM 100 MG CAPSULE (FP) PO SCH (22:31)
[2021-03-23] MEDS: traZODone HCL 50 MG TABLET (FP) PO SCH (22:31)
[2021-03-23] MEDS: LURASIDONE HCL 40 MG TABLET PO SCH (22:32)
[2021-03-24] MEDS: DEXTROSE 5%-0.45% SALINE 1,000 ML IV SCH ×2 (00:18→03:28)
[2021-03-24] MEDS ORDERED: DEXTROSE 5%-0.45% SALINE 1,000 ML IV SCH (08:39)
[2021-03-24 09:29] LABS: BASO % 0.5 % (0-2.0); EOS % 0.2 % (0-4.5); HEMATOCRIT 46.7 % (35.4-49); HEMOGLOBIN 15.7 GM/dL (11.7-16.9); LYMPH % 12.2 % (8-40); MCH 29.5 pg (25.7-33.7); MCHC 33.6 g/dl (32.0-35.9); MEAN PLT VOLUME 7.1 fl (7.5-11.1); MONO % 7.6 % (3.8-10.2); NEUT % 79.5 % (42.8-82.8); PLATELET COUNT 299 K/MM3 (134-434); RDW 18.7 % (11.9-15.9)
[2021-03-24] MEDS: FUROSEMIDE 40 MG TABLET (FP) PO SCH (09:42)
[2021-03-24] MEDS: DIGOXIN 0.125 MG TABLET (FP) PO SCH (09:42)
[2021-03-24] MEDS ORDERED: PT OWN MED DRAWER 7, Y5N ONE ×2 (09:42→21:59)
[2021-03-24] MEDS: MULTIVITAMINS THER W-MINERALS COMBO TABLET (FP) PO SCH (09:50)
[2021-03-24] MEDS: MEMANTINE HCL 5 MG TABLET (UD) PO SCH ×2 (09:50→22:01)
[2021-03-24] MEDS: FOLIC ACID 1 MG TABLET (FP) PO SCH (09:50)
[2021-03-24] MEDS: PANTOPRAZOLE 40 MG TABLET PO SCH (09:50)
[2021-03-24] MEDS: CYANOCOBALAMIN 1,000 MCG TABLET (FP) PO SCH (09:51)
[2021-03-24 10:08] LABS: CALCIUM 8.8 mg/dL (8.5-10.1)
[2021-03-24 10:12] LABS: CREATININE 1.1 mg/dL (0.55-1.3)
[2021-03-24] MEDS: metoPROLOL SUCCINATE 25 MG TAB.SR.24H (FP) PO SCH (15:16)
[2021-03-24] MEDS: traZODone HCL 50 MG TABLET (FP) PO SCH (22:01)
[2021-03-24] MEDS: DOCUSATE SODIUM 100 MG CAPSULE (FP) PO SCH (22:01)
[2021-03-24] MEDS: LURASIDONE HCL 40 MG TABLET PO SCH (22:01)
[2021-03-25 07:54] LABS: BASO % 0.4 % (0-2.0); EOS % 0.2 % (0-4.5); HEMATOCRIT 40.7 % (35.4-49); HEMOGLOBIN 13.7 GM/dL (11.7-16.9); LYMPH % 13.2 % (8-40); MCH 29.3 pg (25.7-33.7); MCHC 33.7 g/dl (32.0-35.9); MONO % 8.8 % (3.8-10.2); NEUT % 77.4 % (42.8-82.8); PLATELET COUNT 263 K/MM3 (134-434); RBC 4.67 M/mm3 (4.00-5.60); RDW 18.9 % (11.9-15.9)
[2021-03-25 08:18] LABS: BLOOD UREA NITROGEN 9.6 mg/dL (7-18); CALCIUM 8.1 mg/dL (8.5-10.1)
[2021-03-25 08:22] LABS: CREATININE 0.9 mg/dL (0.55-1.3)
[2021-03-25] MEDS ORDERED: PT OWN MED DRAWER 7, Y5N ONE (09:02)
[2021-03-25] MEDS: FUROSEMIDE 40 MG TABLET (FP) PO SCH (09:16)
[2021-03-25] MEDS: DIGOXIN 0.125 MG TABLET (FP) PO SCH (09:16)
[2021-03-25] MEDS: PANTOPRAZOLE 40 MG TABLET PO SCH (09:16)
[2021-03-25] MEDS: FOLIC ACID 1 MG TABLET (FP) PO SCH (09:16)
[2021-03-25] MEDS: metoPROLOL SUCCINATE 25 MG TAB.SR.24H (FP) PO SCH (09:16)
[2021-03-25] MEDS: MEMANTINE HCL 5 MG TABLET (UD) PO SCH (09:17)
[2021-03-25] MEDS: CYANOCOBALAMIN 1,000 MCG TABLET (FP) PO SCH (09:17)
[2021-03-25] MEDS: MULTIVITAMINS THER W-MINERALS COMBO TABLET (FP) PO SCH (09:17)
[2021-03-25 14:04] VITALS: BP 101/73; PULSE 75; TEMP 98
[2021-03-25 15:15] VITALS: BMI 16.2
== END 2021-03-25 21:00 | disposition short-term general hospital (02) | DRG 686 ==
LOC: JER 14:21 → JERBED 20:24 → J6S 23:48
PROVIDERS: ADMIT Internal Medicine; ATTEND Internal Medicine
DX: C64.2 Malignant neoplasm of left kidney, except renal pelvis (principal); E43 Unspecified severe protein-calorie malnutrition; R64 Cachexia; Z68.1 Body mass index [BMI] 19.9 or less, adult; I50.22 Chronic systolic (congestive) heart failure; I42.9 Cardiomyopathy, unspecified; N13.30 Unspecified hydronephrosis; R31.0 Gross hematuria; N40.0 Benign prostatic hyperplasia without lower urinary tract symptoms; F03.90 Unspecified dementia, unspecified severity, without behavioral disturbance, psychotic disturbance, mood disturbance, and anxiety; I48.91 Unspecified atrial fibrillation
CPT/HCPCS: 36415; 73523-TC-FY; 73552-TC-LT-FY; 73562-TC-LT-FY; 74177-TC; 76775-TC; 80048; 80053; 80162; 81003; 85025; 87086; 93005; 93010; 93306-TC; 93971-TC; 97116-GP; 97162-GP; 99285-25; C9803; Q9967; U0003; U0005

== ENCOUNTER 2021-09-19 09:58 | Inpatient (IN) | payer OTHER ==
[2021-09-19] MEDS ORDERED: HEPARIN NA (PORCINE) 5,000 UNITS/ML 1ML VIAL IVPUSH ONE ×2 (13:48→15:10)
[2021-09-19] MEDS ORDERED: HEPARIN NA (PORCINE) 5,000 UNITS/ML 1ML VIAL IVPUSH PRN ×4 (13:48→15:10)
[2021-09-19 13:53] LABS: HEMATOCRIT 46.9 % (35.4-49); HEMOGLOBIN 13.8 GM/dL (11.7-16.9); MCH 25.1 pg (25.7-33.7); MCHC 29.4 g/dl (32.0-35.9); MEAN CELL VOLUME 85.3 fl (80-96); MEAN PLT VOLUME 8.6 fl (7.5-11.1); PLATELET COUNT 186 10^3/uL (134-434); RBC 5.49 M/mm3 (4.00-5.60); RDW 25.8 % (11.9-15.9); WHITE BLOOD COUNT 11.5 K/mm3 (4.0-10.0)
[2021-09-19] MEDS ORDERED: HEPARIN INFUSION - 25,000 UNITS/500 ML INFUS.BAG IVPB SCH ×2 (14:00→15:15)
[2021-09-19 14:03] LABS: MAGNESIUM 3.3 mg/dL (1.8-2.4)
[2021-09-19 14:07] LABS: PHOSPHOROUS 7.6 mg/dL (2.5-4.9)
[2021-09-19 14:10] LABS: INR 1.54 (0.83-1.09); PROTHROMBIN TIME (PATIENT) 18.1 SEC (9.7-13.0)
[2021-09-19 14:13] LABS: ACTIVATED PTT 29.9 SECONDS (25.2-36.5)
[2021-09-19] MEDS ORDERED: ACETAMINOPHEN 325 MG TABLET (FP) PO PRN (14:35)
[2021-09-19] MEDS ORDERED: SENNOSIDES 8.6MG TABLET (FP) PO PRN (14:37)
[2021-09-19] MEDS ORDERED: MINERAL OIL/PETROLAT/WATER TOPICAL CREAM 454 GM JAR TP PRN (14:38)
[2021-09-19] MEDS ORDERED: DEXTROSE 5%-0.45% SALINE 1,000 ML IV SCH (14:45)
[2021-09-19] MEDS ORDERED: PANTOPRAZOLE 40 MG TABLET PO SCH (14:45)
[2021-09-19] MEDS ORDERED: HEPARIN NA (PORCINE) 5,000 UNITS/ML 1ML VIAL ONE ×2 (14:50→15:22)
[2021-09-19] MEDS ORDERED: LIDOCAINE HCL 1%, 10 MG/ML (20ML VIAL) ONE (14:50)
[2021-09-19] MEDS ORDERED: HEPARIN INFUSION - 25,000 UNITS/500 ML INFUS.BAG IVPB ONE (15:17)
[2021-09-19] MEDS ORDERED: METOPROLOL TARTRATE 5 MG/5 ML VIAL ONE (15:28)
[2021-09-19 15:33] LABS: ANISOCYTOSIS 2+; MACROCYTOSIS 1+; PLATELET ESTIMATE NORMAL
[2021-09-19 15:34] LABS: EPI CELLS 2 /uL (0-25.1); HYALINE CASTS 2 /uL (0-3.1); URINE APPEARANCE CLOUDY; URINE BILIRUBIN 2+ (NEGATIVE); URINE COLOR DK YELLOW; URINE GLUCOSE (UA) NEGATIVE (NEGATIVE); URINE KETONE TRACE (NEGATIVE); URINE LEUK ESTERASE 1+ (NEGATIVE); URINE NITRITE POSITIVE (NEGATIVE); URINE PROTEIN 4+ (NEGATIVE); URINE WBC 153 /uL (0-25.8)
[2021-09-19 15:35] LABS: URINE RBC 100.4 /uL (0-23.9)
[2021-09-19] MEDS ORDERED: METOPROLOL TARTRATE 5 MG/5 ML VIAL IVPUSH ONE (15:35)
[2021-09-19] MEDS ORDERED: ceFAZolin SODIUM 1 GM VIAL ONE (15:41)
[2021-09-19] MEDS ORDERED: LIDOCAINE HCL/PF 2% SDV 5ML VIAL ONE (15:41)
[2021-09-19] MEDS ORDERED: SODIUM CHLORIDE 0.9% P/F 10 ML VIAL IJ ONE ×4 (15:41→17:47)
[2021-09-19] MEDS ORDERED: PROPOFOL 20 ML ONE (15:41)
[2021-09-19] MEDS ORDERED: dilTIAZem HCL 125 MG/25 ML - 25 ML VIAL ONE (15:49)
[2021-09-19] MEDS ORDERED: ALTEPLASE (CATHFLO) 2 MG/2 ML VIAL NR ONE ×2 (16:00→17:28)
[2021-09-19] MEDS ORDERED: ceFAZolin SODIUM 1 GM VIAL IVPB ONE (17:03)
[2021-09-19] MEDS ORDERED: ONDANSETRON 4 MG/2 ML VIAL IVPUSH PRN (18:12)
[2021-09-19] MEDS ORDERED: LIDOCAINE HCL 1%, 10 MG/ML (20ML VIAL) INF ONE (18:14)
[2021-09-19] MEDS ORDERED: SODIUM CHLORIDE 1,000 ML IV SCH (18:15)
[2021-09-19] MEDS ORDERED: LACTATED RINGERS SOLUTION 1,000 ML/1,000 ML INFUS.BAG IV SCH (22:00)
[2021-09-19] MEDS ORDERED: LURASIDONE HCL 40 MG TABLET PO SCH (22:00)
[2021-09-19] MEDS ORDERED: traZODone HCL 50 MG TABLET (FP) PO SCH (22:00)
[2021-09-19] MEDS: SODIUM/POTASSIUM/SOD CHL (EYE WASH) 120 ML BOTTLE OU SCH (22:36)
[2021-09-19] MEDS: DOCUSATE SODIUM 100 MG CAPSULE (FP) PO SCH (22:36)
[2021-09-19] MEDS: MEMANTINE HCL 5 MG TABLET (UD) PO SCH (22:36)
[2021-09-19] MEDS ORDERED: morphine SULFATE 4 MG/ML VIAL IVPUSH PRN (22:39)
[2021-09-19 23:24] LABS: CHLORIDE 112 mmol/L (98-107); SODIUM 139 mmol/L (136-145)
[2021-09-19 23:26] LABS: ALBUMIN 2.3 g/dl (3.4-5.0); CALCIUM 9.3 mg/dL (8.5-10.1); CO2 11 mmol/L (21-32)
[2021-09-19 23:27] LABS: GLUCOSE,RANDOM 140 mg/dL (74-106)
[2021-09-19 23:30] LABS: CREATININE 1.9 mg/dL (0.55-1.3); SGOT/AST 155 U/L (15-37); SGPT/ALT 26 U/L (13-61)
[2021-09-19 23:31] LABS: BILIRUBIN,TOTAL 2.7 mg/dL (0.2-1); TOT PROT 5.9 g/dl (6.4-8.2)
[2021-09-19 23:32] LABS: ALK PHOS 67 U/L (45-117)
[2021-09-19 23:43] LABS: ANION GAP 17 MMOL/L (8-16)
[2021-09-20 06:55] LABS: HEMOGLOBIN 12.5 GM/dL (11.7-16.9); MCH 25.8 pg (25.7-33.7); MCHC 29.7 g/dl (32.0-35.9); MEAN PLT VOLUME 8.9 fl (7.5-11.1); PLATELET COUNT 167 10^3/uL (134-434); RBC 4.83 M/mm3 (4.00-5.60); RDW 24.5 % (11.9-15.9); WHITE BLOOD COUNT 13.5 K/mm3 (4.0-10.0)
[2021-09-20 07:17] LABS: CHLORIDE 111 mmol/L (98-107); SODIUM 141 mmol/L (136-145)
[2021-09-20 07:22] LABS: ALBUMIN 2.3 g/dl (3.4-5.0); CALCIUM 9.1 mg/dL (8.5-10.1)
[2021-09-20 07:23] LABS: BLOOD UREA NITROGEN 64.8 mg/dL (7-18); CO2 10 mmol/L (21-32); GLUCOSE,RANDOM 88 mg/dL (74-106); MAGNESIUM 2.5 mg/dL (1.8-2.4)
[2021-09-20 07:25] LABS: SGPT/ALT 55 U/L (13-61)
[2021-09-20 07:26] LABS: CREATININE 2.1 mg/dL (0.55-1.3); PHOSPHOROUS 7.2 mg/dL (2.5-4.9); SGOT/AST 266 U/L (15-37)
[2021-09-20 07:27] LABS: TOT PROT 5.7 g/dl (6.4-8.2)
[2021-09-20 07:28] LABS: ALK PHOS 75 U/L (45-117)
[2021-09-20] MEDS ORDERED: INSULIN REGULAR HUMAN 100 UNITS/ML *VIAL IVPUSH ONE (08:09)
[2021-09-20] MEDS ORDERED: DEXTROSE 50%-WATER 25 GM/50 ML DISP.SYRIN IVPUSH ONE (08:10)
[2021-09-20] MEDS ORDERED: SODIUM BICARBONATE 8.4% 50 MEQ/50 ML DISP.SYRIN IVPUSH ONE (08:10)
[2021-09-20] MEDS ORDERED: DEXTROSE 50%-WATER 25 GM/50 ML DISP.SYRIN ONE (08:15)
[2021-09-20] MEDS ORDERED: INSULIN REGULAR HUMAN 100 UNITS/ML *VIAL ONE (08:15)
[2021-09-20 08:22] LABS: ANION GAP 21 MMOL/L (8-16)
[2021-09-20] MEDS ORDERED: SODIUM ZIRCONIUM CYCLOSILICATE (LOKELMA) 5 GM PACKET PO ONE (08:35)
[2021-09-20] MEDS ORDERED: SODIUM CHLORIDE 0.45% 1,000 ML IV SCH (08:45)
[2021-09-20] MEDS ORDERED: PT OWN MED DRAWER 7, Y5N ONE ×2 (09:12→09:21)
[2021-09-20] MEDS: PANTOPRAZOLE SODIUM 40 MG VIAL IVPUSH SCH (09:15)
[2021-09-20] MEDS: FOLIC ACID 1 MG TABLET (FP) PO SCH (09:16)
[2021-09-20] MEDS: MEMANTINE HCL 5 MG TABLET (UD) PO SCH (09:18)
[2021-09-20] MEDS: MULTIVITAMINS THER W-MINERALS COMBO TABLET (FP) PO SCH (09:18)
[2021-09-20] MEDS ORDERED: SODIUM CHLORIDE 1,000 ML IV SCH (09:30)
[2021-09-20] MEDS ORDERED: DEXTROSE 5%-WATER - 50 ML IVPB ONE (09:56)
[2021-09-20] MEDS ORDERED: cefTRIAXone SODIUM 1 GM VIAL ONE (09:56)
[2021-09-20] MEDS: CEFTRIAXONE 1 GM in DEXTROSE 5%-WATER - 50 ML IVPB SCH (09:58)
[2021-09-20] MEDS ORDERED: DIGOXIN 0.125 MG TABLET PO SCH (10:00)
[2021-09-20] MEDS ORDERED: metoPROLOL SUCCINATE 25 MG TAB.SR.24H (FP) PO SCH (10:00)
[2021-09-20] MEDS ORDERED: FUROSEMIDE 40 MG TABLET (FP) PO SCH (10:00)
[2021-09-20] MEDS ORDERED: SODIUM POLYSTYRENE SULFONATE 15 GM/60 ML BOTTLE RC ONE (10:05)
[2021-09-20 10:19] LABS: EPI CELLS >36 /uL (0-25.1); HYALINE CASTS 24 /uL (0-3.1); URINE APPEARANCE TURBID; URINE BILIRUBIN 1+ (NEGATIVE); URINE COLOR ORANGE; URINE GLUCOSE (UA) NEGATIVE (NEGATIVE); URINE KETONE NEGATIVE (NEGATIVE); URINE LEUK ESTERASE 2+ (NEGATIVE); URINE NITRITE POSITIVE (NEGATIVE); URINE PROTEIN 3+ (NEGATIVE); URINE UROBILINOGEN 0.2 mg/dL (0.2-1.0); URINE WBC 391 /uL (0-25.8)
[2021-09-20] MEDS ORDERED: NORMAL SALINE IV SCH (10:30)
[2021-09-20] MEDS ORDERED: SODIUM BICARBONATE IV SCH (10:30)
[2021-09-20] MEDS ORDERED: DEXTROSE IV SCH (10:30)
[2021-09-20 10:56] LABS: ANISOCYTOSIS 1+; MACROCYTOSIS 1+; PLATELET ESTIMATE NORMAL
[2021-09-20] MEDS ORDERED: FUROSEMIDE 100 MG/10 ML INJECTABLE VIAL IVPB ONE (11:50)
[2021-09-20 12:07] LABS: VENOUS BASE EXCESS -13.4 mmol/L (-2-2); VENOUS O2 SATURATION 86.9 % (70-80); VENOUS PCO2 30.5 mmHg (38-52)
[2021-09-20 12:08] LABS: VENOUS PH 7.235 (7.310-7.410)
[2021-09-20 12:23] LABS: CALCIUM 8.7 mg/dL (8.5-10.1)
[2021-09-20 12:24] LABS: ALBUMIN 2.5 g/dl (3.4-5.0); BLOOD UREA NITROGEN 69.2 mg/dL (7-18)
[2021-09-20 12:27] LABS: CREATININE 2.3 mg/dL (0.55-1.3)
[2021-09-20 12:28] LABS: BILIRUBIN,TOTAL 1.9 mg/dL (0.2-1); TOT PROT 5.9 g/dl (6.4-8.2)
[2021-09-20] MEDS: SODIUM BICARBONATE 8.4% - 150 MEQ in DEXTROSE 5%-WATER - 1,000 ML IV SCH (12:41)
[2021-09-20 15:44] LABS: URINE RBC 3482.5 /uL (0-23.9)
[2021-09-20 15:45] LABS: URINE BACTERIA NONE SEEN /uL (0-1359)
[2021-09-20] MEDS ORDERED: SODIUM CHLORIDE 1,000 ML IV STA (17:31)
[2021-09-20] MEDS: HEPARIN INFUSION - 25,000 UNITS/500 ML INFUS.BAG IVPB SCH (17:57)
[2021-09-20] MEDS ORDERED: SODIUM CHLORIDE 1,000 ML IV ONE (19:30)
[2021-09-20] MEDS: CYANOCOBALAMIN 1,000 MCG TABLET (FP) PO SCH (21:30)
[2021-09-20] MEDS: DOCUSATE SODIUM 100 MG CAPSULE (FP) PO SCH (21:35)
[2021-09-20] MEDS: SODIUM/POTASSIUM/SOD CHL (EYE WASH) 120 ML BOTTLE OU SCH (22:18)
[2021-09-21] MEDS: SODIUM BICARBONATE 8.4% - 150 MEQ in DEXTROSE 5%-WATER - 1,000 ML IV SCH (02:33)
[2021-09-21 06:44] LABS: BASO % 0.3 % (0-2.0); EOS % 0.1 % (0-4.5); HEMATOCRIT 35.6 % (35.4-49); HEMOGLOBIN 11.3 GM/dL (11.7-16.9); MCH 25.9 pg (25.7-33.7); MCHC 31.7 g/dl (32.0-35.9); MEAN CELL VOLUME 81.9 fl (80-96); MEAN PLT VOLUME 8.4 fl (7.5-11.1); MONO % 2.3 % (3.8-10.2); NEUT % 93.3 % (42.8-82.8); PLATELET COUNT 158 10^3/uL (134-434); RBC 4.35 M/mm3 (4.00-5.60); WHITE BLOOD COUNT 13.5 K/mm3 (4.0-10.0)
[2021-09-21 07:29] LABS: ALBUMIN 2.1 g/dl (3.4-5.0); BILIRUBIN,TOTAL 0.9 mg/dL (0.2-1); BLOOD UREA NITROGEN 68.8 mg/dL (7-18); CALCIUM 7.7 mg/dL (8.5-10.1); TOT PROT 5.2 g/dl (6.4-8.2)
[2021-09-21] MEDS ORDERED: PT OWN MED DRAWER 7, Y5N ONE ×2 (09:50→17:25)
[2021-09-21] MEDS ORDERED: cefTRIAXone SODIUM 1 GM VIAL ONE (09:50)
[2021-09-21] MEDS ORDERED: DEXTROSE 5%-WATER - 50 ML IVPB ONE (09:51)
[2021-09-21] MEDS: FOLIC ACID 1 MG TABLET (FP) PO SCH (10:03)
[2021-09-21] MEDS: CEFTRIAXONE 1 GM in DEXTROSE 5%-WATER - 50 ML IVPB SCH (10:03)
[2021-09-21] MEDS: PANTOPRAZOLE SODIUM 40 MG VIAL IVPUSH SCH (10:03)
[2021-09-21] MEDS: MULTIVITAMINS THER W-MINERALS COMBO TABLET (FP) PO SCH (10:04)
[2021-09-21] MEDS: CYANOCOBALAMIN 1,000 MCG TABLET (FP) PO SCH (10:04)
[2021-09-21] MEDS: metoPROLOL SUCCINATE 25 MG TAB.SR.24H (FP) PO SCH (10:34)
[2021-09-21] MEDS: SODIUM CHLORIDE 0.45% 1,000 ML IV SCH (11:55)
[2021-09-21] MEDS ORDERED: DIGOXIN 0.125 MG TABLET PO SCH (12:00)
[2021-09-21 12:36] LABS: ANISOCYTOSIS 1+; MACROCYTOSIS 1+; OVALOCYTE 1+; PLATELET ESTIMATE DECREASED; TARGET CELLS 1+; TEAR DROP CELLS 1+
[2021-09-21 13:21] VITALS: BMI 18.7
[2021-09-21] MEDS: HEPARIN INFUSION - 25,000 UNITS/500 ML INFUS.BAG IVPB SCH (17:35)
[2021-09-21] MEDS: SODIUM/POTASSIUM/SOD CHL (EYE WASH) 120 ML BOTTLE OU SCH (21:50)
[2021-09-21] MEDS: DOCUSATE SODIUM 100 MG CAPSULE (FP) PO SCH (21:50)
[2021-09-22] MEDS: SODIUM CHLORIDE 0.45% 1,000 ML IV SCH ×4 (00:05→23:19)
[2021-09-22] MEDS: HEPARIN INFUSION - 25,000 UNITS/500 ML INFUS.BAG IVPB SCH ×2 (01:44→14:25)
[2021-09-22 06:24] LABS: ARTERIAL BLD GAS O2 SATURATION 97.5 % (95-98); ARTERIAL BLOOD GAS BASE EXCESS 0.8 mmol/L (-2-2); ARTERIAL BLOOD GAS PO2 89.3 mmHg (80-100); ARTERIAL BLOOD GAS pH 7.501 (7.350-7.450)
[2021-09-22 06:36] LABS: ALLENS TEST POSITIVE
[2021-09-22 06:44] LABS: HEMATOCRIT 37.6 % (35.4-49); HEMOGLOBIN 12.1 GM/dL (11.7-16.9); MCH 26.1 pg (25.7-33.7); MCHC 32.2 g/dl (32.0-35.9); MEAN CELL VOLUME 81.1 fl (80-96); MEAN PLT VOLUME 8.5 fl (7.5-11.1); PLATELET COUNT 151 10^3/uL (134-434); RBC 4.63 M/mm3 (4.00-5.60); RDW 23.9 % (11.9-15.9); WHITE BLOOD COUNT 9.6 K/mm3 (4.0-10.0)
[2021-09-22 06:49] LABS: INR 1.24 (0.83-1.09); PROTHROMBIN TIME (PATIENT) 14.5 SEC (9.7-13.0)
[2021-09-22 06:52] LABS: ACTIVATED PTT 46.2 SECONDS (25.2-36.5)
[2021-09-22 06:56] LABS: CALCIUM 7.4 mg/dL (8.5-10.1)
[2021-09-22 06:57] LABS: MAGNESIUM 2.2 mg/dL (1.8-2.4)
[2021-09-22 07:00] LABS: CREATININE 1.9 mg/dL (0.55-1.3); PHOSPHOROUS 3.9 mg/dL (2.5-4.9)
[2021-09-22 07:01] LABS: BILIRUBIN,TOTAL 0.8 mg/dL (0.2-1)
[2021-09-22] MEDS ORDERED: DEXTROSE 5%-WATER - 50 ML IVPB ONE (08:53)
[2021-09-22] MEDS ORDERED: cefTRIAXone SODIUM 1 GM VIAL ONE (08:53)
[2021-09-22] MEDS: PANTOPRAZOLE SODIUM 40 MG VIAL IVPUSH SCH (09:42)
[2021-09-22] MEDS: CEFTRIAXONE 1 GM in DEXTROSE 5%-WATER - 50 ML IVPB SCH (09:42)
[2021-09-22] MEDS: metoPROLOL SUCCINATE 25 MG TAB.SR.24H (FP) PO SCH (09:42)
[2021-09-22] MEDS: FOLIC ACID 1 MG TABLET (FP) PO SCH (09:42)
[2021-09-22] MEDS: MULTIVITAMINS THER W-MINERALS COMBO TABLET (FP) PO SCH (09:42)
[2021-09-22] MEDS: CYANOCOBALAMIN 1,000 MCG TABLET (FP) PO SCH (09:43)
[2021-09-22 11:21] LABS: ANISOCYTOSIS 1+; MACROCYTOSIS 0; PLATELET ESTIMATE DECREASED
[2021-09-22] MEDS ORDERED: SODIUM CHLORIDE 0.45% 1,000 ML IV SCH (12:07)
[2021-09-22] MEDS ORDERED: HEPARIN INFUSION - 25,000 UNITS/500 ML INFUS.BAG IVPB SCH (12:07)
[2021-09-22] MEDS ORDERED: MINERAL OIL/PETROLAT/WATER TOPICAL CREAM 454 GM JAR TP PRN ×2 (12:07→13:46)
[2021-09-22] MEDS ORDERED: SENNOSIDES 8.6MG TABLET (FP) PO PRN ×2 (12:07→13:46)
[2021-09-22] MEDS ORDERED: DOCUSATE SODIUM 100 MG CAPSULE (FP) PO SCH ×2 (22:00)
[2021-09-22] MEDS ORDERED: SODIUM/POTASSIUM/SOD CHL (EYE WASH) 120 ML BOTTLE OU SCH ×2 (22:00)
[2021-09-22] MEDS ORDERED: PT OWN MED DRAWER 7, Y5N ONE (23:16)
[2021-09-23] MEDS ORDERED: DIGOXIN 0.125 MG TABLET PO SCH ×2
[2021-09-23 07:48] LABS: HEMATOCRIT 26.9 % (35.4-49); HEMOGLOBIN 8.5 GM/dL (11.7-16.9); MCH 25.9 pg (25.7-33.7); MCHC 31.6 g/dl (32.0-35.9); MEAN CELL VOLUME 81.9 fl (80-96); MEAN PLT VOLUME 8.7 fl (7.5-11.1); PLATELET COUNT 102 10^3/uL (134-434); RBC 3.29 M/mm3 (4.00-5.60); RDW 23.8 % (11.9-15.9); WHITE BLOOD COUNT 5.5 K/mm3 (4.0-10.0)
[2021-09-23] MEDS ORDERED: SODIUM CHLORIDE 0.9%/KCL 20 MEQ/1,000 ML INFUS.BAG IV SCH (09:00)
[2021-09-23 09:28] LABS: ALBUMIN 1.2 g/dl (3.4-5.0); ANION GAP 9 MMOL/L (8-16); BLOOD UREA NITROGEN 41.8 mg/dL (7-18); CALCIUM 5.1 mg/dL (8.5-10.1); CHLORIDE 97 mmol/L (98-107); CO2 19 mmol/L (21-32); SODIUM 125 mmol/L (136-145)
[2021-09-23] MEDS ORDERED: CYANOCOBALAMIN 1,000 MCG TABLET (FP) PO SCH ×2 (10:00)
[2021-09-23] MEDS ORDERED: FOLIC ACID 1 MG TABLET (FP) PO SCH ×2 (10:00)
[2021-09-23] MEDS ORDERED: PANTOPRAZOLE 40 MG TABLET PO SCH ×3 (10:00)
[2021-09-23] MEDS ORDERED: CEFTRIAXONE 1 GM in DEXTROSE 5%-WATER - 50 ML IVPB SCH (10:00)
[2021-09-23] MEDS ORDERED: metoPROLOL SUCCINATE 25 MG TAB.SR.24H (FP) PO SCH ×2 (10:00)
[2021-09-23] MEDS ORDERED: MULTIVITAMINS THER W-MINERALS COMBO TABLET (FP) PO SCH ×2 (10:00)
[2021-09-23 10:33] LABS: ANISOCYTOSIS 1+; MACROCYTOSIS 1+; PLATELET ESTIMATE DECREASED
[2021-09-23 10:38] LABS: CREATININE 1.6 mg/dL (0.55-1.3)
[2021-09-23 10:39] LABS: BILIRUBIN,TOTAL 0.9 mg/dL (0.2-1)
[2021-09-23] MEDS ORDERED: PT OWN MED DRAWER 7, Y5N ONE (10:40)
[2021-09-23] MEDS: HEPARIN INFUSION - 25,000 UNITS/500 ML INFUS.BAG IVPB SCH ×2 (10:54→12:45)
[2021-09-23 10:58] LABS: ALBUMIN 2.2 g/dl (3.4-5.0); CALCIUM 7.6 mg/dL (8.5-10.1); TOT PROT 5.6 g/dl (6.4-8.2)
[2021-09-23 11:22] LABS: HEMATOCRIT 38.7 % (35.4-49); HEMOGLOBIN 12.1 GM/dL (11.7-16.9); MCH 25.5 pg (25.7-33.7); MCHC 31.2 g/dl (32.0-35.9); MEAN CELL VOLUME 81.8 fl (80-96); MEAN PLT VOLUME 8.3 fl (7.5-11.1); PLATELET COUNT 117 10^3/uL (134-434); RBC 4.73 M/mm3 (4.00-5.60); RDW 24.9 % (11.9-15.9); WHITE BLOOD COUNT 7.6 K/mm3 (4.0-10.0)
[2021-09-23] MEDS ORDERED: IRON SUCROSE INJECTION 200 MG in SODIUM CHLORIDE 90 ML IVPB ONE ×2 (11:48→12:03)
[2021-09-23] MEDS ORDERED: MINERAL OIL/PETROLAT/WATER TOPICAL CREAM 454 GM JAR TP PRN (12:03)
[2021-09-23] MEDS ORDERED: SENNOSIDES 8.6MG TABLET (FP) PO PRN (12:03)
[2021-09-23] MEDS ORDERED: HEPARIN NA (PORCINE) 5,000 UNITS/ML 1ML VIAL IVPUSH PRN ×2 (12:03)
[2021-09-23] MEDS: SODIUM CHLORIDE 0.9%/KCL 20 MEQ/1,000 ML INFUS.BAG IV SCH ×2 (13:00→23:58)
[2021-09-23] MEDS: DOCUSATE SODIUM 100 MG CAPSULE (FP) PO SCH (21:42)
[2021-09-23] MEDS: SODIUM/POTASSIUM/SOD CHL (EYE WASH) 120 ML BOTTLE OU SCH (21:43)
[2021-09-24 08:50] LABS: EOS % 1.2 % (0-4.5); HEMATOCRIT 38.1 % (35.4-49); LYMPH % 6.2 % (8-40); MCH 25.7 pg (25.7-33.7); MCHC 31.6 g/dl (32.0-35.9); MEAN CELL VOLUME 81.3 fl (80-96); MEAN PLT VOLUME 8.3 fl (7.5-11.1); MONO % 4.6 % (3.8-10.2); PLATELET COUNT 140 10^3/uL (134-434); RBC 4.68 M/mm3 (4.00-5.60); RDW 24.3 % (11.9-15.9); WHITE BLOOD COUNT 6.7 K/mm3 (4.0-10.0)
[2021-09-24 09:12] LABS: BLOOD UREA NITROGEN 51.6 mg/dL (7-18); CALCIUM 7.8 mg/dL (8.5-10.1)
[2021-09-24 09:16] LABS: CREATININE 1.5 mg/dL (0.55-1.3)
[2021-09-24] MEDS ORDERED: PT OWN MED DRAWER 7, Y5N ONE ×2 (10:42→19:29)
[2021-09-24] MEDS: MULTIVITAMINS THER W-MINERALS COMBO TABLET (FP) PO SCH (10:46)
[2021-09-24] MEDS: PANTOPRAZOLE 40 MG TABLET PO SCH (10:46)
[2021-09-24] MEDS: metoPROLOL SUCCINATE 25 MG TAB.SR.24H (FP) PO SCH (10:46)
[2021-09-24] MEDS: CYANOCOBALAMIN 1,000 MCG TABLET (FP) PO SCH (10:46)
[2021-09-24] MEDS: FOLIC ACID 1 MG TABLET (FP) PO SCH (10:46)
[2021-09-24] MEDS: DIGOXIN 0.125 MG TABLET PO SCH (19:29)
[2021-09-24] MEDS: HEPARIN INFUSION - 25,000 UNITS/500 ML INFUS.BAG IVPB SCH (20:03)
[2021-09-24] MEDS: DOCUSATE SODIUM 100 MG CAPSULE (FP) PO SCH (22:13)
[2021-09-24] MEDS: SODIUM/POTASSIUM/SOD CHL (EYE WASH) 120 ML BOTTLE OU SCH (22:14)
[2021-09-25] MEDS: SODIUM CHLORIDE 0.9%/KCL 20 MEQ/1,000 ML INFUS.BAG IV SCH ×3 (05:11→17:16)
[2021-09-25 08:55] LABS: BASO % 0.3 % (0-2.0); EOS % 1.8 % (0-4.5); HEMATOCRIT 37.1 % (35.4-49); HEMOGLOBIN 11.6 GM/dL (11.7-16.9); LYMPH % 6.5 % (8-40); MCH 25.8 pg (25.7-33.7); MCHC 31.4 g/dl (32.0-35.9); MEAN CELL VOLUME 82.3 fl (80-96); MEAN PLT VOLUME 8.3 fl (7.5-11.1); MONO % 4.9 % (3.8-10.2); NEUT % 86.5 % (42.8-82.8); PLATELET COUNT 128 10^3/uL (134-434); RDW 24.3 % (11.9-15.9); WHITE BLOOD COUNT 7.1 K/mm3 (4.0-10.0)
[2021-09-25 09:26] LABS: BLOOD UREA NITROGEN 44.6 mg/dL (7-18)
[2021-09-25 09:29] LABS: CREATININE 1.2 mg/dL (0.55-1.3)
[2021-09-25] MEDS: metoPROLOL SUCCINATE 25 MG TAB.SR.24H (FP) PO SCH (10:33)
[2021-09-25] MEDS: PANTOPRAZOLE 40 MG TABLET PO SCH (10:33)
[2021-09-25] MEDS: FOLIC ACID 1 MG TABLET (FP) PO SCH (10:33)
[2021-09-25 10:34] LABS: HEMATOCRIT 37.5 % (35.4-49); HEMOGLOBIN 11.9 GM/dL (11.7-16.9); MCH 26.1 pg (25.7-33.7); MCHC 31.8 g/dl (32.0-35.9); MEAN CELL VOLUME 82.1 fl (80-96); MEAN PLT VOLUME 8.1 fl (7.5-11.1); PLATELET COUNT 141 10^3/uL (134-434); RBC 4.57 M/mm3 (4.00-5.60); RDW 24.3 % (11.9-15.9)
[2021-09-25] MEDS: MULTIVITAMINS THER W-MINERALS COMBO TABLET (FP) PO SCH (10:34)
[2021-09-25] MEDS: HEPARIN INFUSION - 25,000 UNITS/500 ML INFUS.BAG IVPB SCH (12:04)
[2021-09-25] MEDS: CYANOCOBALAMIN 1,000 MCG TABLET (FP) PO SCH (12:15)
[2021-09-25] MEDS: SODIUM/POTASSIUM/SOD CHL (EYE WASH) 120 ML BOTTLE OU SCH (22:41)
[2021-09-25] MEDS: DOCUSATE SODIUM 100 MG CAPSULE (FP) PO SCH (22:46)
[2021-09-26] MEDS: DIGOXIN 0.125 MG TABLET PO SCH (00:30)
[2021-09-26] MEDS: SODIUM CHLORIDE 0.9%/KCL 20 MEQ/1,000 ML INFUS.BAG IV SCH (05:34)
[2021-09-26] MEDS: HEPARIN INFUSION - 25,000 UNITS/500 ML INFUS.BAG IVPB SCH (08:06)
[2021-09-26 09:06] LABS: BASO % 0.3 % (0-2.0); EOS % 1.8 % (0-4.5); HEMATOCRIT 37.1 % (35.4-49); HEMOGLOBIN 11.7 GM/dL (11.7-16.9); MCH 25.9 pg (25.7-33.7); MCHC 31.5 g/dl (32.0-35.9); MEAN CELL VOLUME 82.3 fl (80-96); MEAN PLT VOLUME 8.3 fl (7.5-11.1); MONO % 4.3 % (3.8-10.2); NEUT % 85.6 % (42.8-82.8); PLATELET COUNT 168 10^3/uL (134-434); RBC 4.51 M/mm3 (4.00-5.60); RDW 24.2 % (11.9-15.9); WHITE BLOOD COUNT 6.9 K/mm3 (4.0-10.0)
[2021-09-26] MEDS: FOLIC ACID 1 MG TABLET (FP) PO SCH (09:25)
[2021-09-26] MEDS: MULTIVITAMINS THER W-MINERALS COMBO TABLET (FP) PO SCH (09:25)
[2021-09-26] MEDS: PANTOPRAZOLE 40 MG TABLET PO SCH (09:25)
[2021-09-26] MEDS: metoPROLOL SUCCINATE 25 MG TAB.SR.24H (FP) PO SCH (09:25)
[2021-09-26] MEDS: CYANOCOBALAMIN 1,000 MCG TABLET (FP) PO SCH (09:25)
[2021-09-26 09:39] LABS: ALBUMIN 2.2 g/dl (3.4-5.0); BILIRUBIN,TOTAL 0.9 mg/dL (0.2-1); BLOOD UREA NITROGEN 38.2 mg/dL (7-18); CALCIUM 8.2 mg/dL (8.5-10.1); CREATININE 1.2 mg/dL (0.55-1.3); TOT PROT 5.5 g/dl (6.4-8.2)
[2021-09-26 11:11] LABS: ANISOCYTOSIS 1+; MACROCYTOSIS 2+; OVALOCYTE 1+; PLATELET ESTIMATE NORMAL; TARGET CELLS 1+
[2021-09-26] MEDS: D5-1/2NS+10 MEQ KCL - 10 MEQ/1,000 ML INFUS.BAG IV SCH (15:03)
[2021-09-26] MEDS: SODIUM/POTASSIUM/SOD CHL (EYE WASH) 120 ML BOTTLE OU SCH (22:31)
[2021-09-26] MEDS: DOCUSATE SODIUM 100 MG CAPSULE (FP) PO SCH (22:34)
[2021-09-27] MEDS: metoPROLOL SUCCINATE 25 MG TAB.SR.24H (FP) PO SCH (09:41)
[2021-09-27] MEDS: MULTIVITAMINS THER W-MINERALS COMBO TABLET (FP) PO SCH (09:41)
[2021-09-27] MEDS: CYANOCOBALAMIN 1,000 MCG TABLET (FP) PO SCH (09:42)
[2021-09-27] MEDS: PANTOPRAZOLE 40 MG TABLET PO SCH (09:42)
[2021-09-27] MEDS: FOLIC ACID 1 MG TABLET (FP) PO SCH (09:42)
[2021-09-27] MEDS ORDERED: ACETAMINOPHEN 325 MG TABLET (FP) PO PRN (10:05)
[2021-09-27 10:18] LABS: BASO % 1.5 % (0-2.0); EOS % 1.6 % (0-4.5); HEMATOCRIT 40.3 % (35.4-49); HEMOGLOBIN 12.7 GM/dL (11.7-16.9); MCH 25.8 pg (25.7-33.7); MCHC 31.5 g/dl (32.0-35.9); MEAN CELL VOLUME 81.9 fl (80-96); MEAN PLT VOLUME 7.5 fl (7.5-11.1); MONO % 5.5 % (3.8-10.2); NEUT % 84.4 % (42.8-82.8); PLATELET COUNT 174 10^3/uL (134-434); RBC 4.92 M/mm3 (4.00-5.60); RDW 24.8 % (11.9-15.9)
[2021-09-27 10:32] LABS: CHLORIDE 111 mmol/L (98-107); SODIUM 138 mmol/L (136-145)
[2021-09-27 10:35] LABS: CALCIUM 8.3 mg/dL (8.5-10.1)
[2021-09-27 10:36] LABS: BLOOD UREA NITROGEN 33.1 mg/dL (7-18); CO2 20 mmol/L (21-32); GLUCOSE,RANDOM 115 mg/dL (74-106)
[2021-09-27 10:39] LABS: CREATININE 1.1 mg/dL (0.55-1.3)
[2021-09-27 10:43] LABS: ANION GAP 7 MMOL/L (8-16)
[2021-09-27] MEDS: DIGOXIN 0.125 MG TABLET PO SCH (12:00)
[2021-09-27] MEDS: HEPARIN INFUSION - 25,000 UNITS/500 ML INFUS.BAG IVPB SCH (15:12)
[2021-09-27] MEDS: D5-1/2NS+10 MEQ KCL - 10 MEQ/1,000 ML INFUS.BAG IV SCH (15:13)
[2021-09-27 15:25] LABS: BLOOD UREA NITROGEN 33.7 mg/dL (7-18); CALCIUM 8.2 mg/dL (8.5-10.1)
[2021-09-27 15:26] LABS: ALBUMIN 2.3 g/dl (3.4-5.0)
[2021-09-27 15:28] LABS: CREATININE 1.1 mg/dL (0.55-1.3)
[2021-09-27 15:30] LABS: BILIRUBIN,TOTAL 0.7 mg/dL (0.2-1); TOT PROT 5.8 g/dl (6.4-8.2)
[2021-09-27] MEDS: DOCUSATE SODIUM 100 MG CAPSULE (FP) PO SCH (21:36)
[2021-09-27] MEDS: SODIUM/POTASSIUM/SOD CHL (EYE WASH) 120 ML BOTTLE OU SCH (22:40)
[2021-09-28] MEDS: D5-1/2NS+10 MEQ KCL - 10 MEQ/1,000 ML INFUS.BAG IV SCH (06:55)
[2021-09-28] MEDS ORDERED: PT OWN MED DRAWER 7, Y5N ONE ×2 (07:21→09:47)
[2021-09-28] MEDS: FOLIC ACID 1 MG TABLET (FP) PO SCH (09:47)
[2021-09-28] MEDS: CYANOCOBALAMIN 1,000 MCG TABLET (FP) PO SCH (09:47)
[2021-09-28] MEDS: metoPROLOL SUCCINATE 25 MG TAB.SR.24H (FP) PO SCH (09:47)
[2021-09-28] MEDS: PANTOPRAZOLE 40 MG TABLET PO SCH (09:48)
[2021-09-28] MEDS: MULTIVITAMINS THER W-MINERALS COMBO TABLET (FP) PO SCH (09:48)
[2021-09-28 10:11] LABS: HEMATOCRIT 39.7 % (35.4-49); HEMOGLOBIN 12.2 GM/dL (11.7-16.9); MCHC 30.8 g/dl (32.0-35.9); MEAN CELL VOLUME 84.3 fl (80-96); MEAN PLT VOLUME 8.3 fl (7.5-11.1); PLATELET COUNT 222 10^3/uL (134-434); RBC 4.71 M/mm3 (4.00-5.60); RDW 25.2 % (11.9-15.9); WHITE BLOOD COUNT 7.9 K/mm3 (4.0-10.0)
[2021-09-28 10:37] LABS: BLOOD UREA NITROGEN 31.1 mg/dL (7-18); CALCIUM 8.7 mg/dL (8.5-10.1)
[2021-09-28 11:33] LABS: ANISOCYTOSIS 2+; MACROCYTOSIS 0; PLATELET ESTIMATE NORMAL
[2021-09-28] MEDS ORDERED: SODIUM CHLORIDE 0.45% 1,000 ML IV SCH (11:45)
[2021-09-28] MEDS: DOCUSATE SODIUM 100 MG CAPSULE (FP) PO SCH (21:18)
[2021-09-28] MEDS: SODIUM/POTASSIUM/SOD CHL (EYE WASH) 120 ML BOTTLE OU SCH (22:20)
[2021-09-29] MEDS: DIGOXIN 0.125 MG TABLET PO SCH (01:08)
[2021-09-29] MEDS: HEPARIN INFUSION - 25,000 UNITS/500 ML INFUS.BAG IVPB SCH (05:48)
[2021-09-29 10:27] LABS: BASO % 0.6 % (0-2.0); HEMATOCRIT 33.7 % (35.4-49); HEMOGLOBIN 10.6 GM/dL (11.7-16.9); LYMPH % 8.1 % (8-40); MCH 25.8 pg (25.7-33.7); MCHC 31.6 g/dl (32.0-35.9); MEAN CELL VOLUME 81.7 fl (80-96); MEAN PLT VOLUME 7.8 fl (7.5-11.1); MONO % 4.6 % (3.8-10.2); NEUT % 85.7 % (42.8-82.8); PLATELET COUNT 229 10^3/uL (134-434); RBC 4.12 M/mm3 (4.00-5.60); RDW 25.1 % (11.9-15.9); WHITE BLOOD COUNT 6.9 K/mm3 (4.0-10.0)
[2021-09-29] MEDS ORDERED: SODIUM CHLORIDE 0.45% 1,000 ML IV SCH ×2 (10:37→15:19)
[2021-09-29] MEDS ORDERED: PT OWN MED DRAWER 7, Y5N ONE ×2 (10:52→20:55)
[2021-09-29 10:55] LABS: BLOOD UREA NITROGEN 29.3 mg/dL (7-18); CALCIUM 8.5 mg/dL (8.5-10.1)
[2021-09-29] MEDS: FOLIC ACID 1 MG TABLET (FP) PO SCH (10:55)
[2021-09-29] MEDS: CYANOCOBALAMIN 1,000 MCG TABLET (FP) PO SCH (10:55)
[2021-09-29] MEDS: metoPROLOL SUCCINATE 25 MG TAB.SR.24H (FP) PO SCH (10:55)
[2021-09-29] MEDS: MULTIVITAMINS THER W-MINERALS COMBO TABLET (FP) PO SCH (10:55)
[2021-09-29] MEDS: PANTOPRAZOLE 40 MG TABLET PO SCH (10:55)
[2021-09-29 10:58] LABS: CREATININE 0.9 mg/dL (0.55-1.3)
[2021-09-29 15:07] LABS: ANISOCYTOSIS 2+; MACROCYTOSIS 1+; OVALOCYTE 1+
[2021-09-29] MEDS ORDERED: FUROSEMIDE 40 MG/4 ML INJECTABLE VIAL IVPUSH ONE (15:18)
[2021-09-29] MEDS: DOCUSATE SODIUM 100 MG CAPSULE (FP) PO SCH (21:22)
[2021-09-29] MEDS: SODIUM/POTASSIUM/SOD CHL (EYE WASH) 120 ML BOTTLE OU SCH (21:22)
[2021-09-30 08:53] LABS: CALCIUM 8.4 mg/dL (8.5-10.1)
[2021-09-30 08:54] LABS: BLOOD UREA NITROGEN 28.4 mg/dL (7-18)
[2021-09-30 08:57] LABS: CREATININE 1.1 mg/dL (0.55-1.3)
[2021-09-30] MEDS: PANTOPRAZOLE 40 MG TABLET PO SCH (10:06)
[2021-09-30] MEDS: CYANOCOBALAMIN 1,000 MCG TABLET (FP) PO SCH (10:06)
[2021-09-30] MEDS: MULTIVITAMINS THER W-MINERALS COMBO TABLET (FP) PO SCH (10:06)
[2021-09-30] MEDS: metoPROLOL SUCCINATE 25 MG TAB.SR.24H (FP) PO SCH (10:06)
[2021-09-30] MEDS: DIGOXIN 0.125 MG TABLET PO SCH (10:07)
[2021-09-30] MEDS: FOLIC ACID 1 MG TABLET (FP) PO SCH (10:07)
[2021-09-30] MEDS ORDERED: FUROSEMIDE 40 MG/4 ML INJECTABLE VIAL IVPUSH ONE (10:15)
[2021-09-30 12:21] LABS: BASO % 1.8 % (0-2.0); EOS % 1.4 % (0-4.5); HEMATOCRIT 38.6 % (35.4-49); LYMPH % 7.4 % (8-40); MCH 25.9 pg (25.7-33.7); MCHC 31.2 g/dl (32.0-35.9); MEAN CELL VOLUME 83.1 fl (80-96); MEAN PLT VOLUME 7.8 fl (7.5-11.1); MONO % 3.5 % (3.8-10.2); NEUT % 85.9 % (42.8-82.8); PLATELET COUNT 249 10^3/uL (134-434); RBC 4.64 M/mm3 (4.00-5.60); RDW 24.7 % (11.9-15.9); WHITE BLOOD COUNT 6.6 K/mm3 (4.0-10.0)
[2021-09-30 12:38] LABS: CALCIUM 8.6 mg/dL (8.5-10.1)
[2021-09-30 12:42] LABS: CREATININE 1.1 mg/dL (0.55-1.3)
[2021-09-30] MEDS ORDERED: HEPARIN INFUSION - 25,000 UNITS/500 ML INFUS.BAG IVPB SCH (19:45)
[2021-09-30] MEDS: SODIUM/POTASSIUM/SOD CHL (EYE WASH) 120 ML BOTTLE OU SCH (21:16)
[2021-09-30] MEDS: DOCUSATE SODIUM 100 MG CAPSULE (FP) PO SCH (21:16)
[2021-10-01 06:37] VITALS: BP 122/73; PULSE 96; TEMP 97.7
[2021-10-01 07:58] LABS: BASO % 1.8 % (0-2.0); EOS % 1.7 % (0-4.5); HEMATOCRIT 38.9 % (35.4-49); HEMOGLOBIN 12.4 GM/dL (11.7-16.9); LYMPH % 8.5 % (8-40); MCH 26.1 pg (25.7-33.7); MCHC 31.7 g/dl (32.0-35.9); MEAN CELL VOLUME 82.2 fl (80-96); MEAN PLT VOLUME 7.8 fl (7.5-11.1); MONO % 5.2 % (3.8-10.2); NEUT % 82.8 % (42.8-82.8); PLATELET COUNT 263 10^3/uL (134-434); RBC 4.73 M/mm3 (4.00-5.60); RDW 25.3 % (11.9-15.9)
[2021-10-01 08:17] LABS: CALCIUM 8.7 mg/dL (8.5-10.1)
[2021-10-01 08:18] LABS: BLOOD UREA NITROGEN 29.1 mg/dL (7-18)
[2021-10-01] MEDS ORDERED: FUROSEMIDE 40 MG/4 ML INJECTABLE VIAL IVPUSH ONE (08:45)
[2021-10-01] MEDS: metoPROLOL SUCCINATE 25 MG TAB.SR.24H (FP) PO SCH (10:02)
[2021-10-01] MEDS: FOLIC ACID 1 MG TABLET (FP) PO SCH (10:02)
[2021-10-01] MEDS: MULTIVITAMINS THER W-MINERALS COMBO TABLET (FP) PO SCH (10:02)
[2021-10-01] MEDS: PANTOPRAZOLE 40 MG TABLET PO SCH (10:03)
[2021-10-01] MEDS: DIGOXIN 0.125 MG TABLET PO SCH (10:03)
[2021-10-01] MEDS: CYANOCOBALAMIN 1,000 MCG TABLET (FP) PO SCH (10:03)
[2021-10-01] MEDS ORDERED: APIXABAN 5 MG TABLET PO SCH (10:30)
[2021-10-01 11:22] LABS: HEMATOCRIT 39.6 % (35.4-49); HEMOGLOBIN 12.5 GM/dL (11.7-16.9); MCH 26.1 pg (25.7-33.7); MCHC 31.4 g/dl (32.0-35.9); MEAN CELL VOLUME 83.1 fl (80-96); MEAN PLT VOLUME 7.5 fl (7.5-11.1); PLATELET COUNT 248 10^3/uL (134-434); RBC 4.77 M/mm3 (4.00-5.60); RDW 26.4 % (11.9-15.9); WHITE BLOOD COUNT 5.8 K/mm3 (4.0-10.0)
== END 2021-10-01 12:31 | disposition hospice, inpatient (51) | DRG 252 ==
LOC: JER 09:58 → JERBED 10:22 → JICU 20:22 → J6S 09-25 00:43
PROVIDERS: ADMIT Internal Medicine; ATTEND Internal Medicine
PROC: 067N3ZZ Dilation of Left Femoral Vein, Percutaneous Approach (ICD-10-PCS; 2021-09-19)
PROC: 067D3ZZ Dilation of Left Common Iliac Vein, Percutaneous Approach (ICD-10-PCS; 2021-09-19)
PROC: 06F Lower Veins, Fragmentation (ICD-10-PCS; 2021-09-19)
PROC: 3E03317 Introduction of Other Thrombolytic into Peripheral Vein, Percutaneous Approach (ICD-10-PCS; 2021-09-19)
PROC: B51CZZZ Fluoroscopy of Left Lower Extremity Veins (ICD-10-PCS; 2021-09-19)
PROC: 06H03DZ Insertion of Intraluminal Device into Inferior Vena Cava, Percutaneous Approach (ICD-10-PCS; principal; 2021-09-19 13:45)
DX: I82.412 Acute embolism and thrombosis of left femoral vein (principal); R53.2 Functional quadriplegia; M62.82 Rhabdomyolysis; I48.21 Permanent atrial fibrillation; N39.0 Urinary tract infection, site not specified; E87.2 Acidosis; R64 Cachexia; C64.2 Malignant neoplasm of left kidney, except renal pelvis; Z68.1 Body mass index [BMI] 19.9 or less, adult; N17.9 Acute kidney failure, unspecified; I42.9 Cardiomyopathy, unspecified; I50.32 Chronic diastolic (congestive) heart failure; I96 Gangrene, not elsewhere classified; I47.2 Ventricular tachycardia; I82.422 Acute embolism and thrombosis of left iliac vein; R55 Syncope and collapse; E86.0 Dehydration; E83.41 Hypermagnesemia; S06.0X0A Concussion without loss of consciousness, initial encounter; W19.XXXA Unspecified fall, initial encounter; Y93.9 Activity, unspecified; Y92.129 Unspecified place in nursing home as the place of occurrence of the external cause; Y99.8 Other external cause status; Z66 Do not resuscitate; E80.6 Other disorders of bilirubin metabolism; E87.5 Hyperkalemia; E83.39 Other disorders of phosphorus metabolism; K59.00 Constipation, unspecified; N18.9 Chronic kidney disease, unspecified; F03.90 Unspecified dementia, unspecified severity, without behavioral disturbance, psychotic disturbance, mood disturbance, and anxiety; R26.81 Unsteadiness on feet; I95.9 Hypotension, unspecified
CPT/HCPCS: 36415; 36600; 70450-TC; 71045-TC-FY; 72125-TC; 72170-TC-FY; 76775-TC; 80048; 80053; 80162; 81003; 82550; 82553; 82728; 82803; 83540; 83550; 83735; 84100; 84132; 84484; 85025; 85027; 85379; 85610; 85730; 86850; 86900; 86901; 86922; 87086; 93005; 93010; 93925-TC; 93971-TC; 94760; 99285-25; C9803; J1644; J2997; U0003; U0005